=== PATIENT | male | born 1935 | race Caucasian/White ===

== ENCOUNTER 2017-05-31 08:02 | Inpatient (IN) | payer MEDICARE, OTHER ==
[~2017-05-31] VITALS: Ht 167.6 cm; Wt 113.9 kg
[2017-05-31] MEDS ORDERED: ACETAMINOPHEN 325 MG TAB PO STA (08:18)
[2017-05-31] MEDS ORDERED: ALBUTEROL 0.5% (NEB) 2.5 MG/0.5 ML AMP INH STA (08:18)
[2017-05-31] MEDS ORDERED: SODIUM CHLORIDE 0.9% 1L BAG IV* STA (08:18)
[2017-05-31] MEDS ORDERED: CEFEPIME 2GM/50 ML (PMX) 50 ML IVPB STA (08:18)
[2017-05-31] MEDS ORDERED: VANCOMYCIN 1 GM (PMX) 250 ML IVPB ONE (08:30)
[2017-05-31] MEDS ORDERED: METHYLPREDNISOLONE 125 MG INJ IV ONE (08:30)
[2017-05-31] MEDS ORDERED: ONDANSETRON 4 MG INJ IV STA (08:33)
--- NOTE | 2017-05-31 08:36 | ERA ---
ER Documentation Chief Complaint Date/Time DATE: 05/31/17 TIME: 08:34 Chief Complaint BIB PARAMEDICS FORM HOME - ALOC HPI This is 81-year-old male who woke this morning with fever and shortness of breath, diffuse abdominal pain and some altered mentation. He says he felt fine yesterday or today with a cough that was slightly productive sputum. Says she has had occasional dysuria in the past few days as well The states that he is been in good general health as of lately. She said yesterday he was fine as well as last night. The patient has had no cough but has had 2 episodes of nausea vomiting today is nonbilious and nonbloody. No diarrhea. He denies cough, dysuria hematuria or back pain. The patient himself is a very poor historian ROS All systems reviewed and are negative except as per history of present illness. Medications Home Meds Reported Medications Temazepam* (Temazepam*) 15 Mg Capsule, 15 MG PO HS MAY REPEAT X 1 Y for INSOMNIA , CAP 05/31/17 Ibuprofen* (Ibuprofen*) 200 Mg Capsule, 200 MG PO Q8 Y for PAIN, CAP 05/31/17 Acetaminophen* (Acetaminophen*) 500 MG Extra Strength Tablet, 2 MG PO Q6 Y for PAIN AND OR ELEVATED TEMP, TAB 05/31/17 Zolpidem Tartrate* (Ambien*) 10 Mg Tablet, 10 MG PO QHS Y for INSOMNIA, TAB 05/31/17 Allergies Allergies: Coded Allergies: No Known Allergy (Unverified , 05/31/17) PMhx/Soc History of Surgery: No Anesthesia Reaction: No Hx Neurological Disorder: No Hx Respiratory Disorders: No Hx Cardiac Disorders: Yes (HYPERTENSION, HYPERCHOLESTEROLEMIA) Hx Psychiatric Problems: No Hx Miscellaneous Medical Probl: Yes (ARTHRITIS) Hx Alcohol Use: No Hx Substance Use: No Smoking Status: Never smoker FmHx Family History: No coronary disease Physical Exam Vitals Vital Signs Date Time Temp Pulse Resp B/P Pulse Ox O2 Delivery O2 Flow Rate FiO2 05/31/17 10:11 100.5 05/31/17 09:26 101.6 116 23 147/86 100 Nasal Cannula 3.0 05/31/17 08:28 4.0 05/31/17 08:28 89 21 98 Nasal Cannula 4.0 05/31/17 08:15 Nasal Cannula 3 05/31/17 08:10 102.0 99 24 157/92 96 Physical Exam Const: Well-developed, well-nourished Head: Atraumatic, normocephalic Eyes: Normal Conjunctiva, PERRLA, EOMI, normal sclera, no nystagmus ENT: Normal External Ears, Nose and Mouth, moist mucus membranes. Neck: Full range of motion. No meningismus, no lymphadenopathy. Resp: Slight increased work of breathing, there is decreased breath sounds in both bases, no wheezing or rales Cardio: Regular rate and rhythm, no murmurs, S1 S2 present Abd: Soft, mild diffuse tenderness non distended. Normal bowel sounds, no guarding or rebound, no pulsitile abdominal masses or bruits Skin: No petechiae or rashes, no ecchymosis , no maculopapular rash Back: No midline or flank tenderness Ext: No cyanosis, or edema, FROM x 4, normal inspection, neurovascularly intact x 4 Neur: Awake and alert,, somewhat agitated STR 5/5 x 4, sensation intact x 4, no focal findings, cerebellum intact Psych: Normal Mood and Affect Result Diagram: 05/31/1781905/31/17 0820 Results 24 hrs Laboratory Tests Test 05/31/17 08:20 05/31/17 09:02 White Blood Count 13.010^3/ul Red Blood Count 4.9310^6/ul Hemoglobin 15.4g/dl Hematocrit 44.4% Mean Corpuscular Volume 90.1fl Mean Corpuscular Hemoglobin 31.2pg Mean Corpuscular Hemoglobin Concent 34.7g/dl Red Cell Distribution Width 12.2% Platelet Count 21019^3/UL Mean Platelet Volume 10.0fl Neutrophils % 78.9% Lymphocytes % 6.6% Monocytes % 13.0% Eosinophils % 0.5% Basophils % 0.4% Nucleated Red Blood Cells % 0.0/100WBC Neutrophils # (Manual) 10.210^3/ul Lymphocytes # 0.910^3/ul Monocytes # 1.710^3/ul Eosinophils # 0.110^3/ul Basophils # 0.110^3/ul Nucleated Red Blood Cells # 0.010^3/ul Prothrombin Time 13.6Sec Prothrombin Time Ratio 1.1 INR International Normalized Ratio 1.04 Activated Partial Thromboplast Time 23.1Sec Sodium Level 141mmol/L Potassium Level 4.1mmol/L Chloride Level 103mmol/L Carbon Dioxide Level 25mmol/L Anion Gap 17 Blood Urea Nitrogen 19mg/dl Creatinine 0.75mg/dl Glucose Level 112mg/dl Lactic Acid Level 3.4mmol/L Calcium Level 8.6mg/dl Total Bilirubin 0.6mg/dl Direct Bilirubin 0.00mg/dl Indirect Bilirubin 0.6mg/dl Aspartate Amino Transf (AST/SGOT) 24IU/L Alanine Aminotransferase (ALT/SGPT) 43IU/L Alkaline Phosphatase 54IU/L Troponin I < 0.012ng/ml Total Protein 6.3g/dl Albumin 3.7g/dl Globulin 2.60g/dl Albumin/Globulin Ratio 1.42 Urine Color YELLOW Urine Clarity CLEAR Urine pH 9.0 Urine Specific [place] 1.017 Urine Ketones NEGATIVEmg/dL Urine Nitrite NEGATIVEmg/dL Urine Bilirubin NEGATIVEmg/dL Urine Urobilinogen NEGATIVEmg/dL Urine Leukocyte Esterase NEGATIVELeu/ul Urine Microscopic RBC 1/HPF Urine Microscopic WBC 0/HPF Urine Hemoglobin NEGATIVEmg/dL Urine Glucose NEGATIVEmg/dL Urine Total Protein 1+mg/dl Current Medications Medications (Trade) Dose Ordered Sig/Kassandra Route PRN Reason Start Time Stop Time Status Last Admin Dose Admin Albuterol (Proventil 0.5% (Neb)) 10 mg ONCE STAT INH 05/31/17 08:18 05/31/17 08:21 DC 05/31/17 08:25 Sodium Chloride (NS) 2,950 ml BOLUS OVER 2 HOURS STAT IV* 05/31/17 08:18 05/31/17 08:21 DC 05/31/17 08:37 Acetaminophen 650 mg 650 mg ONCE STAT PO 05/31/17 08:18 05/31/17 08:22 DC 05/31/17 08:37 Cefepime HCl 50 ml @ 100 mls/hr ONCE STAT IVPB 05/31/17 08:18 05/31/17 08:47 DC 05/31/17 08:37 Vancomycin HCl (Vancocin) 250 ml @ 125 mls/hr ONCE ONCE IVPB 05/31/17 08:30 05/31/17 10:29 DC 05/31/17 09:36 Methylprednisolone Sodium Succinate (Solu-Medrol) 125 mg ONCE ONCE IV 05/31/17 08:30 05/31/17 08:31 DC 05/31/17 08:37 Ondansetron HCl (Zofran Inj) 4 mg ONCE STAT IV 05/31/17 08:33 05/31/17 08:34 DC 05/31/17 08:54 Procedures/MDM EKG: Rate/Rhythm: Normal Sinus Rhythm,NL intervals QRS, ST, QT: NORMAL ND, QRS, QT] Impression: NORMAL EKG PROCEDURE: CT Abdomen and Pelvis without intravenous contrast. CLINICAL INDICATION: Sepsis . TECHNIQUE: CT scan of the abdomen and pelvis without intravenous contrast was performed on a multi-slice CT scanner. Coronal and sagittal reformatted images were obtained from the axial source images. Images were reviewed on a high- resolution PACS workstation. Total DLP = 1589.7 mGy-cm. CTDIvol = 22.5 mGy. One or more of the following dose reduction techniques were used: Automated exposure control. Adjustment of the mA and/or kV according to patient size. Use of iterative reconstruction technique. COMPARISON: None. FINDINGS: CT abdomen and pelvis: The lung bases are clear. The heart size mildly enlarged. The liver is normal in size and and mildly fatty in density without focal mass or intrahepatic biliary dilatation. The spleen is normal in size and homogeneous in density. The pancreas as visualized is normal. The gallbladder shows no evidence of stones or distension . The adrenal glands are normal. The kidneys are symmetrically unremarkable. No urolithiasis, obstructive uropathy is seen. There is an exophytic slightly hyperdense 1 cm nodule at the upper pole of the left kidney probably a proteinaceous or hemorrhagic cyst. There is minimal bilateral perinephric stranding. Similar exophytic isodense 8 mm nodule seen at the upper pole of the right kidney. The stomach is partially collapsed, but is grossly unremarkable. The small bowels are unremarkable. The colon and rectum are normal. There is no evidence of appendicitis or diverticulitis. The pelvic organs are normal. The bladder is normal. There is no abdominal or pelvic adenopathy, free fluid, free air, mass or mesenteric inflammation. The aorta is normal in caliber with calcific atherosclerosis . The osseous structures showing degenerative enthesopathy of the spine. No osteolytic or osteoblastic lesions are identified. The soft tissues are within normal limits. Lack of IV and oral contrast limits sensitivity of exam. IMPRESSION: 1. Mild cardiomegaly. 2. Hepatic steatosis. 3. Exophytic hyper to isodense nodules at the upper poles of the bilateral kidneys probably a proteinaceous or hemorrhagic cysts. Ultrasound of the kidneys could be obtained to confirm. 4. Otherwise unremarkable noncontrast CT abdomen and pelvis without acute pathology identified. RPTAT: GG .Fortino Isbell MD, Date Time Electronically viewed and signed by .Fortino Isbell MD, on 05/31/2017 09:37 .L/ CC: YONATAN OWENS DO PROCEDURE: XR Chest. CLINICAL INDICATION: Possible Sepsis TECHNIQUE: Single frontal view of the chest was obtained. COMPARISON: None. FINDINGS: There is severe cardiomegaly and mild pulmonary vascular congestion. No focal infiltrates are identified. There is no significant pleural effusion or pneumothorax. IMPRESSION: Severe cardiomegaly and mild pulmonary vascular congestion. No definite focal infiltrates or effusions. RPTAT: EE Physician Lokesh Date Time Electronically viewed and signed by Physician Lokesh on 05/31/2017 09:09 RA/ CC: YONATAN OWENS DO Admit MDM: Patient's infectious symptoms have not stabilized and the patient is at risk of rapid decompensation. The patient will be admitted for careful hydration, antibiotic therapy, and infectious source control. Severe Sepsis criteria: Infectious source: GI End organ damage indicated by: Elevated lactate Lactate > 2.0 mmol/L Hypotension (SBP < 90 or >40 mmHG drop or MAP < 65) Acute Resp Failure (sat < 92% w/o oxygen) Employee Wellness/Fitness Coordinator > 2.0 INR > 1.5 Plt < 100 Bili > 2 Sepsis Management: Time of recognition of severe sepsis/septic shock: 1020 Within 3 hours of recognition: Blood cultures x 2 before broad-spectrum antibiotics: Yes 30 ml/kg NS bolus completed Initial lactate 3.4 Repeat lactate pending Current data and ongoing care discussed. Time: Admitting Physician: Business Writer(s): Outstanding Data: None Critical Care Time: 35 minutes Treatments/Evaluations: Close monitoring and treatment of unstable vital signs, cardiorespiratory, and neurologic status, while maintaining tight balance of fluid, respiratory, and cardiac interventions. This includes the administration of emergency fluid management while maintaining close respiratory support as well as the provision of immediate and broad-spectrum antibiotic therapy, while performing a simultaneous assessment for possible sources in order to direct targeted therapy. This time includes discussing the case with the patient and the patient's family. This time also includes the consideration for invasive and chemical support to prevent cardiopulmonary collapse. This time does not include all procedures stated elsewhere in this record. This time also includes reviewing old records, labs and radiological studies. This time includes examining and re-examining the patient. Additionally, this time also includes arranging care with admitting and consulting physicians. Departure Diagnosis: Primary Impression: Sepsis Qualified Code: A41.9 - Sepsis, due to unspecified organism Condition: Stable YONATAN OWENS DO May 31, 2017 08:36
[2017-05-31 08:55] LABS: ABNORMAL IP MESSAGE 1; BASOPHIL # 0.1 10^3/ul (0.0-0.1); BASOPHILS % 0.4 % (0.0-2.0); EOSINOPHILS # 0.1 10^3/ul (0.0-0.5); EOSINOPHILS % 0.5 % (0.0-7.0); HEMATOCRIT 44.4 % (42.0-52.0); HEMOGLOBIN 15.4 g/dl (14.0-18.0); LYMPHOCYTES # 0.9 10^3/ul (0.8-2.9); LYMPHOCYTES % 6.6 % (15.0-51.0); MEAN CORPUSCULAR HEMOGLOBIN 31.2 pg (29.0-33.0); MEAN CORPUSCULAR HGB CONC 34.7 g/dl (32.0-37.0); MEAN CORPUSCULAR VOLUME 90.1 fl (82.0-101.0); MONOCYTE # 1.7 10^3/ul (0.3-0.9); NEUTROPHILS % 78.9 % (39.0-77.0); PLATELET COUNT 193 10^3/UL (140-415); POSITIVE DIFF @See below; RED BLOOD COUNT 4.93 10^6/ul (4.70-6.10); RED CELL DISTRIBUTION WIDTH 12.2 % (11.5-14.5)
[2017-05-31 09:10] LABS: INR 1.04; PARTIAL THROMBOPLASTIN TIME 23.1 Sec (25.0-35.0); PROTIME 13.6 Sec (12.2-14.2); PT RATIO 1.1
--- NOTE | 2017-05-31 09:10 | RADRPT ---
PROCEDURE: XR Chest. CLINICAL INDICATION: Possible Sepsis TECHNIQUE: Single frontal view of the chest was obtained. COMPARISON: None. FINDINGS: There is severe cardiomegaly and mild pulmonary vascular congestion. No focal infiltrates are identified. There is no significant pleural effusion or pneumothorax. IMPRESSION: Severe cardiomegaly and mild pulmonary vascular congestion. No definite focal infiltrates or effusions. RPTAT: EE Colton Titus Physician Date Time Electronically viewed and signed by Colton Titus Physician on 05/31/2017 09:09 /
[2017-05-31 09:11] LABS: ALANINE AMINOTRANSFERASE 43 IU/L (13-69); ALBUMIN 3.7 g/dl (3.3-4.9); ALBUMIN/GLOBULIN RATIO 1.42; ALKALINE PHOSPHATASE 54 IU/L (42-121); ANION GAP 17 (8-16); ASPARTATE AMINO TRANSFERASE 24 IU/L (15-46); BILIRUBIN,INDIRECT 0.6 mg/dl (0-1.1); BILIRUBIN,TOTAL 0.6 mg/dl (0.2-1.3); BLOOD UREA NITROGEN 19 mg/dl (7-20); CALCIUM 8.6 mg/dl (8.4-10.2); CARBON DIOXIDE 25 mmol/L (21-31); CHLORIDE 103 mmol/L (97-110); CREATININE 0.75 mg/dl (0.61-1.24); GLUCOSE 112 mg/dl (70-220); POTASSIUM 4.1 mmol/L (3.5-5.1); SODIUM 141 mmol/L (135-144); TOTAL PROTEIN 6.3 g/dl (6.1-8.1)
[2017-05-31 09:18] LABS: ADD UMIC YES; UR ASCORBIC ACID NEGATIVE (NEGATIVE); UR BILIRUBIN (Dip) NEGATIVE (NEGATIVE); UR BLOOD (Dip) NEGATIVE (NEGATIVE); UR CLARITY CLEAR (CLEAR); UR COLOR YELLOW (YELLOW); UR GLUCOSE (Dip) NEGATIVE (NEGATIVE); UR KETONES (Dip) NEGATIVE (NEGATIVE); UR LEUKOCYTE ESTERASE (Dip) NEGATIVE Leu/ul (NEGATIVE); UR NITRITE (Dip) NEGATIVE (NEGATIVE); UR RBC 1 /HPF (0-5); UR SPECIFIC GRAVITY (Dip) 1.017 (1.003-1.030); UR TOTAL PROTEIN (Dip) 1+ mg/dl (NEGATIVE); UR UROBILINOGEN (Dip) NEGATIVE (NEGATIVE)
[2017-05-31 09:25] LABS: TROPONIN-I < 0.012 ng/ml (0.00-0.12)
--- NOTE | 2017-05-31 09:37 | RADRPT ---
PROCEDURE: CT Abdomen and Pelvis without intravenous contrast. CLINICAL INDICATION: Sepsis . TECHNIQUE: CT scan of the abdomen and pelvis without intravenous contrast was performed on a multi -slice CT scanner. Coronal and sagittal reformatted images were obtained from the axial source image s. Images were reviewed on a high-resolution PACS workstation. Total DLP = 1589.7 mGy-cm. CTDIvol = 22.5 mGy. One or more of the following dose reduction techniques were used: Automated exposure control. Adjustment of the mA and/or kV according to patient size. Use of iterative reconstruction technique. COMPARISON: None. FINDINGS: CT abdomen and pelvis: The lung bases are clear. The heart size mildly enlarged. The liver is normal in size and and mild ly fatty in density without focal mass or intrahepatic biliary dilatation. The spleen is normal in size and homogeneous in density. The pancreas as visualized is normal. The gallbladder shows no evidence of stones or distension . The adrenal glands are normal. The kidneys are symmetrically un remarkable. No urolithiasis, obstructive uropathy is seen. There is an exophytic slightly hyperdens e 1 cm nodule at the upper pole of the left kidney probably a proteinaceous or hemorrhagic cyst. Th ere is minimal bilateral perinephric stranding. Similar exophytic isodense 8 mm nodule seen at the u pper pole of the right kidney. The stomach is partially collapsed, but is grossly unremarkable. The small bowels are unremarkable. The colon and rectum are normal. There is no evidence of appendicitis or diverticulitis. The pelvi c organs are normal. The bladder is normal. There is no abdominal or pelvic adenopathy, free fluid, free air, mass or mesenteric inflammation. The aorta is normal in caliber with calcific atherosclerosis . The osseous structures showing degen erative enthesopathy of the spine. No osteolytic or osteoblastic lesions are identified. The soft t issues are within normal limits. Lack of IV and oral contrast limits sensitivity of exam. IMPRESSION: 1. Mild cardiomegaly. 2. Hepatic steatosis. 3. Exophytic hyper to isodense nodules at the upper poles of the bilateral kidneys probably a prote inaceous or hemorrhagic cysts. Ultrasound of the kidneys could be obtained to confirm. 4. Otherwise unremarkable noncontrast CT abdomen and pelvis without acute pathology identified. RPTAT: GG .Fortino Isbell MD, MD Date Time Electronically viewed and signed by .Fortino Isbell MD, on 05/31/2017 09:37 .L/
[2017-05-31] MEDS ORDERED: ZOLP10TA PO (09:44)
[2017-05-31] MEDS ORDERED: IBUP200C PO (09:45)
[2017-05-31] MEDS ORDERED: ACET-141 PO (09:45)
[2017-05-31] MEDS ORDERED: TEMA15CA PO (09:46)
[2017-05-31 11:19] VITALS: TEMP 99.1
[2017-05-31] MEDS ORDERED: SOD CHLORIDE 0.9% 1,000 ML IV SCH ×2 (11:44→12:06)
[2017-05-31] MEDS ORDERED: ONDANSETRON 4 MG INJ IV PRN ×2 (12:00→12:30)
[2017-05-31] MEDS ORDERED: ACETAMINOPHEN 325 MG TAB PO PRN (12:00)
[2017-05-31] MEDS ORDERED: ACETAMINOPHEN 650 MG SUPP PR PRN (12:30)
[2017-05-31] MEDS ORDERED: VANCOMYCIN IV PER PHARMACY XX SCH (12:30)
[2017-05-31] MEDS ORDERED: NACL 0.9% 3 ML SYG IV SCH (12:30)
[2017-05-31] MEDS ORDERED: NON-FORMULARY/PATIENT OWN MED (Temazepam* 15 MG) PO PRN (12:30)
[2017-05-31 13:00] VITALS: Ht 167.6 cm; Wt 113.9 kg
[2017-05-31 13:52] VITALS: BP 114/50; PULSE 75; RESP 17
[2017-05-31 14:04] VITALS: PULSE 93
--- NOTE | 2017-05-31 14:23 | HP ---
Date/Time of Note Date/Time of Note DATE: 05/31/17 TIME: 13:55 Assessment/Plan VTE Prophylaxis VTE Prophylaxis Intervention: LMWH Lines/Catheters IV [facility]ter [facility]from [facility] Saline Lock Assessment/Plan Assessment/Plan This is a 81-year-old male who was brought to the emergency room with fever, chills, vomiting, malaise and abdominal pain. 1. Sepsis with lactic acidosis,unknown etiology.CT with possible renal cyst. -Obtain pancultures. Patient will be treated with IV fluids, and broad- spectrum IV antibiotics. 2. Chronic lower extremity edema. Rule out congestive heart failure versus lymphedema. -Obtain 2D echocardiogram. Will also give a dose of Lasix as he is fluid overloaded in my exam. -We will also obtain BNP. 3. Exophytic hyper to isodense nodules at the upper poles of the bilateral kidneys probably a proteinaceous or hemorrhagic cysts on CT abdomen. -We will obtain renal ultrasound and will treat accordingly. 4. Hepatic steatosis. LFTs normal. -Patient was advised on weight reduction. 5. Hypertension. Stable. -Hydralazine PRN for SBP greater than 160 6. Arthritis. -Pain medications PRN 7. Insomnia -Resume home medication 8. Nonbilious, nonbloody emesis, likely secondary to underlying sepsis versus gastroenteritis. CT negative for any acute intra-abdominal pathologies. Resolved. -Advance diet as tolerated. DVT prophylaxis: Lovenox PUD prophylaxis: Pepcid Plan: Patient will be admitted to telemetry. Patient does not have any further nausea or vomiting. We will start patient on a diet and advance as tolerated. Follow-up with cultures, echocardiogram and renal ultrasound. We will also obtain fasting lipid panel, A1c and TSH level. The rest of the management depend on clinical course, further studies and input from underwriting consultant. Approximately 60 minutes was spent on this history and physical. Case discussed with . HPI/ROS Admit Date/Time Admit Date/Time May 31, 2017 at 11:45 Hx of Present Illness This is a 81-year-old morbidly obese male with a past medical history of hypertension, arthritis, appendectomy, insomnia, and chronic lower extremity swelling who was brought to the emergency room with fever, chills, malaise, body aches, nausea, 2 times nonbilious, nonbloody vomiting, and abdominal pain which started early this morning. Patient also had slightly productive cough started yesterday. He also had mild shortness of breath. Patient denied any chest pain, palpitation, loss of consciousness, dizziness, upper or lower GI bleed episodes, dysuria or hematuria. Patient had elevated WBC 13,000 with a lactic acid 3.4 on arrival. He also had a fever of 102 with blood pressure 157/92 and heart rate 99. Urine analysis was negative. Initial chest x-ray with severe cardiomegaly and mild pulmonary vascular congestion. There was no infiltrates or effusion. A CT abdomen and pelvis without any acute intra-abdominal pathologies.However, there was hepatic steatosis with questionable proteinaceous or hemorrhagic cyst on upper poles of bilateral kidneys and an ultrasound was recommended. Patient was given cefepime, vancomycin and a total of 2.9 later fluid bolus in the emergency room and was admitted for further evaluation. ROS A 12 point review of system was assessed and is negative other than what is mentioned in HPI. PMH/Family/Social Past Medical History See HPI Past Surgical History See HPI Social History Denied history of alcohol, smoking or illicit drug use. Smoking Status: Never smoker Exam/Review of Systems Vital Signs Vitals Vital Signs Date Time Temp Pulse Resp B/P Pulse Ox O2 Delivery O2 Flow Rate FiO2 05/31/17 11:19 99.1 97 24 126/74 98 Nasal Cannula 3.0 Exam Exam General: Morbidly obese male, in mild respiratory distress.. HEENT: Normocephalic, Atraumatic, No laceration or hematoma; Eyes: PEERL, Conjunctiva clear, Anicteric sclera Neck: Supple without any lymphadenopathy, nontender, no JVD, no carotid bruits, trachea midline, no thyromegaly Cardiac: S1, S2 auscultated, regular rhythm and rate, no mumurs or gallop Pulmonary: Diminished breath sound bibasilar. Normal respiratory effort. No wheezing. GI: Abdomen obese and distended l to inspection. Non tender, non- distended, no masses, no rebound tenderness or guarding. Bowel sounds active on all four quadrants Genitourinary: Deferred Extremities: Bilateral lower extremity 2+ pitting edema. No cyanosis, clubbing , or edema. Pulses [2+] bilaterally. Full ROM on all four extremities. No focal weakness appreciated. Neurologic: Alert to person, place, time, and situation. Affect appropriate, intact sensation. Skin: Clean,dry, and intact. No ecchymosis, no rashes, or lesions Labs Result Diagram: 05/31/17 0820 05/31/17 0820 Medications Medications Current Medications Sodium Chloride 1,000 ml @ 80 mls/hr [id number] IV ; Start 05/31/17 at 11:44; Stop 06/01/17 at 00:13 Sodium Chloride (NS) 1,000 ml @ 75 mls/hr [id number] IV Last administered on 05/31t 13:26; Admin Dose 75 MLS/HR; Start 05/31/17 at 12:06 Ondansetron HCl (Zofran Inj) 4 mg Q6H PRN IV NAUSEA AND/OR VOMITING; Start at 12:30 Acetaminophen (Tylenol Tab) 650 mg Q6H PRN PO PAIN LEVEL 1-3 OR FEVER; Start at 12:30 Acetaminophen (Tylenol Supp) 650 mg Q6H PRN WI PAIN LEVEL 1-3 OR FEVER; Start 05/31/17 at 12:30 Morphine Sulfate (morphine) 2 mg Q4H PRN IV SEVERE PAIN LEVEL 7-10; Start 05/31 at 12:30 Docusate Sodium (Colace) 100 mg Q12H PRN PO CONSTIPATION; Start 05/31/17 at 12: 30 Famotidine 20 mg 20 mg Q12 IV ; Start 05/31/17 at 21:00 Piperacillin Sod/ Tazobactam Sod (Zosyn 3.375gm/ 100 ml (Pmx)) 100 ml @ 200 mls /hr Q6 IVPB ; Start 05/31/17 at 18:00 Zolpidem Tartrate 10 mg 10 mg QHS PRN PO INSOMNIA; Start 05/31/17 at 12:30 Vancomycin HCl (Vancocin) 250 ml @ 125 mls/hr Q12H IVPB ; Start 05/31/17 at 14: 00 DELMI GOODMAN NP May 31, 2017 14:05 DELMI GOODMAN NP May 31, 2017 14:05
[2017-05-31] MEDS ORDERED: FUROSEMIDE 20 MG INJ IV ONE (14:30)
[2017-05-31] MEDS: VANCOMYCIN 1 GM in NS 250 ML IVPB SCH (15:12)
--- NOTE | 2017-05-31 16:01 | RADRPT ---
PROCEDURE: Ultrasound of the bilateral lower extremity venous system. CLINICAL INDICATION: Bilateral leg pain and swelling, deep venous thrombosis TECHNIQUE: Cadena scale with and without compression, color doppler, spectral doppler of the venous system of the bilateral lower extremities was performed. Venous augmentation maneuvers were utilized . COMPARISON: No prior studies are available for comparison. FINDINGS: RIGHT: Common femoral vein: Patent. Femoral vein: Patent. Popliteal vein: Patent. Calf veins: Patent. No soft tissue abnormalities are identified. LEFT: Common femoral vein: Patent. Femoral vein: Patent. Popliteal vein: Patent. Calf veins: Patent. No soft tissue abnormalities are identified. IMPRESSION: No evidence of a deep vein thrombosis within the bilateral lower extremities. RPTAT: AADD .Frank Wahl MD, MD Date Time Electronically viewed and signed by .Frank Wahl MD, on 05/31/2017 16:01 .B/
[2017-05-31] MEDS: ACETAMINOPHEN 325 MG TAB PO PRN (16:03)
--- NOTE | 2017-05-31 16:06 | RADRPT ---
PROCEDURE: Retroperitoneal ultrasound. CLINICAL INDICATION: Hemorrhagic cysts versus mass of both kidneys TECHNIQUE: Cadena scale and color doppler ultrasound images of the retroperitoneum, kidneys, urinary bladder COMPARISON: CT abdomen pelvis 05/31/2017 FINDINGS: Kidneys: Right length (cm) : 10.9 Left length (cm) : 12.4 Right cortical thickness: Normal. Left cortical thickness: Borderline cortical thinning. Echogenicity: Normal bilaterally. Hydronephrosis: None. Renal calculi: None. Focal lesions: 1.1 cm cortical exophytic cyst of the superior pole right kidney appears concordant. The lesion arising from the upper pole of the left kidney on the prior CT scan is not identified. Free fluid/ascites: None. Abdominal aorta: Not visualized by the electroslag welding machine operator. Bladder: No focal lesions. Other findings: None. IMPRESSION: 1.1 cm cyst arising from the upper pole of the right kidney appears concordant with the prior CT sca n. 1.0 cm lesion identified arising medially from the superior pole of the left kidney on the prior CT scan is not visualized. A small renal mass is not excluded. Recommend MRI of the abdomen with jayla l mass protocol for further evaluation. RPTAT: AADD .Frank Wahl MD, Date Time Electronically viewed and signed by .Frank Wahl MD, on 05/31/2017 16:06 .B/
[2017-05-31 16:19] VITALS: BP 124/55; PULSE 78; RESP 19
[2017-05-31] MEDS ORDERED: LORAZEPAM 2 MG INJ IV PRN (16:30)
--- NOTE | 2017-05-31 16:45 | RADRPT ---
Echocardiogram Report Patient Name: KORY DONOVAN Gender: Male Date: 1935 Study Date: 31-May-2017 [employer] Grader: Margret Villarreal [facility] Location: 5567 Ref. Physician: DELMI GOODMAN Quality: Adequate Procedures: Transthoracic echocardiogram with complete 2D, M-Mode, and doppler examination. Indications: possible Congestive Heart Failure. 2D/M Mode Doppler Measurement Value Normal Ranges Measurement Value Normal Ranges LVIDd 2D 4.6 3.5 - 5.6 cm AV Peak Chris 2.4 m/sec LVIDs 2D 3.0 2.1 - 4.1 cm AV Peak PG 24.0 mmHg FS 2D 34.8 % LVOT Peak Chris 1.7 m/sec LVPWd 2D 1.3 0.6 - 1.1 cm LVOT Peak PG 12.0 mmHg IVSd 2D 1.3 0.6 - 1.1 cm MV E Peak Chris 0.9 m/sec IVS/LVPW 2D 1.0 MV A Peak Chris 1.3 m/sec AoR Diam 2D 3.2 2.0 - 3.7 cm MV E/A 0.7 LA/Ao 2D 1 0 - 1 MV Decel Time 239 msec EDV 2D 95.4 cm3 MV E/A 0.7 ESV 2D 26.5 cm3 TR Peak Chris 2.8 m/sec LA Dimen 2D 4.6 2.3 - 4.0 cm TR Peak PG 32.0 mmHg RVSP 35.0 mmHg Findings Left Ventricle: Normal left ventricular systolic function. Normal left ventricular cavity size. Mild concentric left ventricular hypertrophy. Ejection fraction is visually estimated at 65 %. Tissue Doppler/Mitral Doppler indices are consistent with impaired relaxation (Stage I diastolic dysfunction). Right Ventricle: Normal right ventricular size. Normal right ventricular systolic function. Left Atrium: There is mild enlargement of left atrium. Right Atrium: The right atrium is normal in size. Mitral Valve: Normal appearance and function of the mitral valve with trace physiologic regurgitation. Aortic Valve: No significant aortic stenosis or insufficiency. Aortic cusps appear mildly calcified. Tricuspid Valve: Normal appearance and function of the tricuspid valve with trace physiologic regurgitation. Estimated peak PA systolic pressure 35 mmHg. Pulmonic Valve: Normal pulmonic valve appearance. Pericardium: Normal pericardium with no significant pericardial effusion. Aorta: Normal aortic root. IVC: Normal size and normal respiratory collapse consistent with normal right atrial pressure. Conclusions 1.Normal left ventricular systolic function. Normal left ventricular cavity size. Mild concentric left ventricular hypertrophy. Ejection fraction is visually estimated at 65 %. Tissue Doppler/Mitral Doppler indices are consistent with impaired relaxation (Stage I diastolic dysfunction). 2.Normal right ventricular size. Normal right ventricular systolic function. 3.There is mild enlargement of left atrium. 4.The right atrium is normal in size. 5.No significant valvular stenosis or regurgitation seen. 6.Normal pericardium with no significant pericardial effusion. Electronically Signed By: Rey Baig 31-May-2017 16:44:39 -0700 Patient Name: KORY DONOVAN Study Date: 31-May-[id number]
[2017-05-31] MEDS: ALBUTEROL/IPRATROPIUM (NEB) 3 ML AMP HHN SCH ×3 (16:59→20:51)
[2017-05-31 17:27] LABS: ADD UMIC NO; UR ASCORBIC ACID NEGATIVE (NEGATIVE); UR BILIRUBIN (Dip) NEGATIVE (NEGATIVE); UR BLOOD (Dip) NEGATIVE (NEGATIVE); UR CLARITY CLEAR (CLEAR); UR COLOR YELLOW (YELLOW); UR GLUCOSE (Dip) NEGATIVE (NEGATIVE); UR KETONES (Dip) NEGATIVE (NEGATIVE); UR LEUKOCYTE ESTERASE (Dip) NEGATIVE Leu/ul (NEGATIVE); UR NITRITE (Dip) NEGATIVE (NEGATIVE); UR SPECIFIC GRAVITY (Dip) 1.011 (1.003-1.030); UR TOTAL PROTEIN (Dip) NEGATIVE (NEGATIVE); UR UROBILINOGEN (Dip) NEGATIVE (NEGATIVE)
[2017-05-31] MEDS: PIPER-TAZO 3.375 GM IV (PMX) 100 ML IVPB SCH (17:38)
[2017-05-31] MEDS: morphine 2 MG INJ IV PRN (17:38)
[2017-05-31 20:00] VITALS: BP 107/54; RESP 18
[2017-05-31 20:15] VITALS: PULSE 72
[2017-05-31] MEDS: ZOLPIDEM 5 MG TAB PO PRN (21:14)
[2017-05-31] MEDS: FAMOTIDINE 20 MG INJ IV SCH (21:15)
[2017-06-01] VITALS (12 sets, daily range): BP systolic 114–170; BP diastolic 56–75; PULSE 16–77; RESP 14–19
[2017-06-01] MEDS: PIPER-TAZO 3.375 GM IV (PMX) 100 ML IVPB SCH ×3 (00:15→11:50)
[2017-06-01] MEDS: ALBUTEROL/IPRATROPIUM (NEB) 3 ML AMP HHN SCH ×6 (00:44→20:51)
[2017-06-01] MEDS: VANCOMYCIN 1 GM in NS 250 ML IVPB SCH ×2 (02:20→13:57)
[2017-06-01 07:43] LABS: BASOPHILS % 0.4 % (0.0-2.0); EOSINOPHILS % 0.1 % (0.0-7.0); HEMATOCRIT 39.5 % (42.0-52.0); HEMOGLOBIN 13.1 g/dl (14.0-18.0); LYMPHOCYTES % 9.9 % (15.0-51.0); MEAN CORPUSCULAR HEMOGLOBIN 30.5 pg (29.0-33.0); MEAN CORPUSCULAR HGB CONC 33.2 g/dl (32.0-37.0); MEAN CORPUSCULAR VOLUME 92.1 fl (82.0-101.0); MEAN PLATELET VOLUME 9.6 fl (7.4-10.4); MONOCYTE # 1.3 10^3/ul (0.3-0.9); MONOCYTES % 13.8 % (0.0-11.0); NEUTROPHILS % 75.5 % (39.0-77.0); PLATELET COUNT 149 10^3/UL (140-415); RED BLOOD COUNT 4.29 10^6/ul (4.70-6.10); RED CELL DISTRIBUTION WIDTH 12.7 % (11.5-14.5); WHITE BLOOD COUNT 9.7 10^3/ul (4.8-10.8)
[2017-06-01 08:00] LABS: ALBUMIN 3.4 g/dl (3.3-4.9); ALBUMIN/GLOBULIN RATIO 1.21; BILIRUBIN,INDIRECT 0.4 mg/dl (0-1.1); BILIRUBIN,TOTAL 0.4 mg/dl (0.2-1.3); CALCIUM 8.1 mg/dl (8.4-10.2); CREATININE 0.88 mg/dl (0.61-1.24); MAGNESIUM 1.6 mg/dl (1.7-2.5); PHOSPHORUS 2.9 mg/dl (2.5-4.9); POTASSIUM 3.6 mmol/L (3.5-5.1); TOTAL PROTEIN 6.2 g/dl (6.1-8.1)
--- NOTE | 2017-06-01 08:25 | RADRPT ---
PROCEDURE: CT Abdomen and Pelvis without contrast. CLINICAL INDICATION: Abdominal pain with vomiting. TECHNIQUE: CT scan of the abdomen and pelvis without contrast was performed on a multidetector hig h-resolution CT scanner. The patient was scanned without intravenous contrast. Coronal and sagittal reformatted images were obtained from the axial source images. Images were reviewed on a high-resol doggyloot PACS workstation. The total exam CTDI equals 23.2 mGy and the total exam DLP equals 1429.4 mGy -cm. One or more of the following dose reduction techniques were used: Automated exposure control. Adjustment of the mA and/or kV according to patient size. Use of iterative reconstruction technique. COMPARISON: CT abdomen and pelvis 05/31/2017 and renal ultrasound 05/31/2017. FINDINGS: CT abdomen: The lung bases are remarkable for bibasilar atelectasis. The heart size is mildly enlarged without pericardial thickening or effusion. There is hepatomegaly with fatty infiltration. The spleen is normal in size and homogeneous in densi ty. The stomach is partially collapsed, but is grossly unremarkable. The pancreas as visualized is normal. The gallbladder is unremarkable. There is no evidence for biliary dilatation. The adrenal glands are symmetric and normal. The kidneys are symmetrically unremarkable as well. There is no urolithiasis. There is no hydronephrosis. There is approximately 1.2 cm exophytic hyperdense struc ture in the upper pole left kidney. There is a sub centimeter isodense structure in the upper pole right kidney. There is nonspecific bilateral perinephric fatty stranding. The aorta is of normal caliber. Aortic vascular calcifications are present. There is no retroperit carney lymphadenopathy. The rere hepatis region is clear. The bowel and mesentery, as visualized, are equally unremarkable. There is a small hiatal hernia. CT pelvis: The small bowel loops situated within the pelvis are unremarkable. The pelvic organs are normal. T he pelvic sidewalls and inguinal regions are clear. The sigmoid colon and rectum are unremarkable. No mass, lymphadenopathy, or free fluid is seen. No acute inflammation is seen. The surrounding o sseous structures are remarkable for degenerative spondylosis of the spine. No osteolytic or osteob lastic lesion is detected. IMPRESSION: 1. No mass, lymphadenopathy, or focal acute inflammatory process is identified. 2. Small hiatal hernia. 3. Approximately 1.2 cm exophytic hyperdense structure in the upper pole left kidney likely represe nting a proteinaceous or hemorrhagic cyst. 4. A sub centimeter cortical cyst in the upper pole right kidney. 5. Hepatomegaly with fatty infiltration. 6. Scattered aortoiliac atherosclerosis. 7. Cardiomegaly. RPTAT: AAEE .Guido Larose MD, MD Date Time Electronically viewed and signed by .Guido Larose MD, on 06/01/2017 08:24 .O/
[2017-06-01 08:29] LABS: THYROID STIMULATING HORMONE 0.339 MIU/L (0.465-4.680)
[2017-06-01] MEDS: FAMOTIDINE 20 MG INJ IV SCH (08:32)
[2017-06-01] MEDS: ENOXAPARIN 40 MG/0.4 ML SYG SC SCH (08:33)
[2017-06-01] MEDS ORDERED: DEXTROSE 50% 50 ML SYRINGE IV PRN ×2 (09:00)
[2017-06-01] MEDS ORDERED: GLUCOSE GEL 15 GRAM TUBE PO PRN ×2 (09:00)
[2017-06-01] MEDS ORDERED: GLUCOSE GEL 15 GRAM TUBE BUCCAL PRN (09:00)
[2017-06-01] MEDS ORDERED: GLUCAGON 1 MG INJ IM PRN (09:00)
[2017-06-01] MEDS: INSULIN ASPART [NOVOLOG] 3 ML PEN SC SCH ×3 (11:54→21:00)
[2017-06-01] MEDS: ACETAMINOPHEN 325 MG TAB PO PRN (11:56)
--- NOTE | 2017-06-01 12:03 | PN ---
Date/Time of Note Date/Time of Note DATE: 06/01/17 TIME: 12:03 Assessment/Plan VTE Prophylaxis VTE Prophylaxis Intervention: LMWH Lines/Catheters IV [facility] Saline Lock Assessment/Plan Chief Complaint/Hosp Course 1. Sepsis with GBS bacteremia and lactic acidosis,unknown etiology- Possibly 2/ 2 infected renal cyst. CAP also is differential. -Continue IV broad-spectrum antibiotics. -Follow-up ID recommendation 2. Chronic bilateral lower extremities lymphedema. Will monitor. 3. Probable renal cyst versus mass per CT and ultrasound finding. -Obtain renal protocol MRI and will treat accordingly. 4. Hepatic steatosis. LFTs normal. -Patient was advised on weight reduction. 5. Hypertension. -Obtain home medications and resume accordingly. 6. Arthritis. -Pain medications PRN 7. Insomnia -Continue home medication DVT prophylaxis: Lovenox PUD prophylaxis: Pepcid Plan: Continue current antibiotics. Follow-up with ID recommendations. Follow- up with MRI findings and follow-up with ID recommendation. Case discussed with . Problems: Subjective 24 Hr Interval Summary Free Text/Dictation Patient with no further fevers. Feeling overall improvement in symptoms. No further breathing difficulties. Has been ambulating without any difficulties. On 2 L oxygen. Exam/Review of Systems Vital Signs Vitals Vital Signs Date Time Temp Pulse Resp B/P Pulse Ox O2 Delivery O2 Flow Rate FiO2 06/01/17 09:24 4.0 06/01/17 09:24 70 20 97 Nasal Cannula 06/01/17 07:53 97.9 114/56 Intake and Output 05/31/17 05/31/17 06/01/17 15:00 23:00 07:00 Intake Total 470 ml 360 ml Output Total 550 ml 400 ml Balance -80 ml -40 ml Exam General: Morbidly obese male, in mild respiratory distress.. HEENT: Normocephalic, Atraumatic, No laceration or hematoma; Eyes: PEERL, Conjunctiva clear, Anicteric sclera Neck: Supple without any lymphadenopathy, nontender, no JVD, no carotid bruits, trachea midline, no thyromegaly Cardiac: S1, S2 auscultated, regular rhythm and rate, no mumurs or gallop Pulmonary: Diminished breath sound bibasilar. Normal respiratory effort. No wheezing. GI: Abdomen obese and distended l to inspection. Non tender, non- distended, no masses, no rebound tenderness or guarding. Bowel sounds active on all four quadrants Genitourinary: Deferred Extremities: Bilateral lower extremity 2+ pitting edema. No cyanosis, clubbing , or edema. Pulses [2+] bilaterally. Full ROM on all four extremities. No focal weakness appreciated. Neurologic: Alert to person, place, time, and situation. Affect appropriate, intact sensation. Skin: Clean,dry, and intact. No ecchymosis, no rashes, or lesions Results Result Diagram: 06/01/17 0713 06/01/17 0713 Results 24 hrs Laboratory Tests Test 05/31/17 12:30 05/31/17 14:15 06/01/17 07:13 06/01/17 09:35 Lactic Acid Level 2.6 *H 1.6 B-Type Natriuretic Peptide 138 Urine Color YELLOW Urine Clarity CLEAR Urine pH 6.0 Urine Specific [place] 1.011 Urine Ketones NEGATIVE Urine Nitrite NEGATIVE Urine Bilirubin NEGATIVE Urine Urobilinogen NEGATIVE Urine Leukocyte Esterase NEGATIVE Urine Hemoglobin NEGATIVE Urine Glucose NEGATIVE Urine Total Protein NEGATIVE White Blood Count 9.7 # Red Blood Count 4.29 L Hemoglobin 13.1 L Hematocrit 39.5 L Mean Corpuscular Volume 92.1 Mean Corpuscular Hemoglobin 30.5 Mean Corpuscular Hemoglobin Concent 33.2 Red Cell Distribution Width 12.7 Platelet Count 149 # Mean Platelet Volume 9.6 Neutrophils % 75.5 Lymphocytes % 9.9 L Monocytes % 13.8 H Eosinophils % 0.1 Basophils % 0.4 Nucleated Red Blood Cells % 0.0 Neutrophils # (Manual) 7.3 Lymphocytes # 1.0 Monocytes # 1.3 H Eosinophils # 0.0 Basophils # 0.0 Nucleated Red Blood Cells # 0.0 Sodium Level 138 Potassium Level 3.6 Chloride Level 99 Carbon Dioxide Level 26 Anion Gap 17 H Blood Urea Nitrogen 19 Creatinine 0.88 Glucose Level 135 Hemoglobin A1c 6.3 H Calcium Level 8.1 L Phosphorus Level 2.9 Magnesium Level 1.6 L Total Bilirubin 0.4 Direct Bilirubin 0.00 Indirect Bilirubin 0.4 Aspartate Amino Transf (AST/SGOT) 27 Alanine Aminotransferase (ALT/SGPT) 44 Alkaline Phosphatase 42 Total Protein 6.2 Albumin 3.4 Globulin 2.80 Albumin/Globulin Ratio 1.21 Triglycerides Level 135 Cholesterol Level 168 LDL Cholesterol, Calculated 100 HDL Cholesterol 41 Cholesterol/HDL Ratio 4.0 Thyroid Stimulating Hormone (TSH) 0.339 L Test 06/01/17 11:53 Bedside Glucose 127 Medications Medications Current Medications Ondansetron HCl (Zofran Inj) 4 mg Q6H PRN IV NAUSEA AND/OR VOMITING; Start at 12:30 Acetaminophen (Tylenol Tab) 650 mg Q6H PRN PO PAIN LEVEL 1-3 OR FEVER Last administered on 06/01/17 11:56; Admin Dose 650 MG; Start 05/31/17 at 12:30 Acetaminophen (Tylenol Supp) 650 mg Q6H PRN [place] PAIN LEVEL 1-3 OR FEVER; Start 05/31/17 at 12:30 Morphine Sulfate (morphine) 2 mg Q4H PRN IV SEVERE PAIN LEVEL 7-10 Last administered on 05/31/17 17:38; Admin Dose 2 MG; Start 05/31/17 at 12:30 Docusate Sodium (Colace) 100 mg Q12H PRN PO CONSTIPATION; Start 05/31/17 at 12: 30 Famotidine 20 mg 20 mg Q12 IV Last administered on 06/01/17 08:32; Admin Dose 20 MG; Start 05/31/17 at 21:00 Piperacillin Sod/ Tazobactam Sod (Zosyn 3.375gm/ 100 ml (Pmx)) 100 ml @ 200 mls /hr Q6 IVPB Last administered on 06/01/17 11:50; Admin Dose 200 MLS/HR; Start 05/31/17 at 18:00 Zolpidem Tartrate 10 mg 10 mg QHS PRN PO INSOMNIA Last administered on 21:14; Admin Dose 10 MG; Start 05/31/17 at 12:30 Vancomycin HCl (Vancocin) 250 ml @ 125 mls/hr Q12H IVPB Last administered on 02:20; Admin Dose 125 MLS/HR; Start 05/31/17 at 14:00 Enoxaparin Sodium (Lovenox) 40 mg DAILY SC Last administered on 06/01/17 08:33 ; Admin Dose 40 MG; Start 06/01/17 at 09:00 Lorazepam (Ativan) 0.5 mg Q6H PRN IV anxiety; Start 05/31/17 at 16:30 Diagnostic Test (Pha) (Accu-Chek) 1 ea 02 XX ; Start 06/02/17 at 02:00 Miscellaneous Information 1 ea NOTE XX ; Start 06/01/17 at 09:00 Glucose (Glutose) 15 gm Q15M PRN PO DECREASED GLUCOSE; Start 06/01/17 at 09:00 Glucose (Glutose) 22.5 gm Q15M PRN PO DECREASED GLUCOSE; Start 06/01/17 at 09: 00 Dextrose (D50w Syringe) 25 ml Q15M PRN IV DECREASED GLUCOSE; Start 06/01/17 at 09:00 Dextrose (D50w Syringe) 50 ml Q15M PRN IV DECREASED GLUCOSE; Start 06/01/17 at 09:00 Glucagon (Glucagen) 1 mg Q15M PRN IM DECREASED GLUCOSE; Start 06/01/17 at 09:00 Glucose (Glutose) 15 gm Q15M PRN BUCCAL DECREASED GLUCOSE; Start 06/01/17 at 09 :00 Miscellaneous Information (*Rx Drug Level Order Reminder*) VANCO TROUGH @ 0, 100 ON... ONCE ONCE XX ; Start 06/02/17 at 01:00; Stop 06/02/17 at 01:01 DELMI GOODMAN NP Jun 01, 2017 12:03 DELMI GOODMAN NP Jun 01, 2017 12:03
[2017-06-01] MEDS ORDERED: MAGNESIUM SULFATE 1 GM/D5W 100 ML IVPB ONE (14:00)
[2017-06-01] MEDS: morphine 2 MG INJ IV PRN (16:18)
[2017-06-01] MEDS: CEFTRIAXONE 1 GM/50 ML (PMX) 50 ML IVPB SCH (17:43)
[2017-06-01] MEDS: FAMOTIDINE 20 MG TAB PO SCH (21:11)
[2017-06-02] VITALS (14 sets, daily range): BP systolic 138–176; BP diastolic 62–80; PULSE 62–100; RESP 17–20
[2017-06-02] MEDS: DOCUSATE SODIUM 100 MG CAP PO PRN ×2 (00:14→13:17)
[2017-06-02] MEDS: ALBUTEROL/IPRATROPIUM (NEB) 3 ML AMP HHN SCH ×6 (00:37→20:10)
[2017-06-02] MEDS ORDERED: ACCU-CHEK XX SCH (02:00)
[2017-06-02] MEDS: ACCU-CHEK XX SCH (02:00)
[2017-06-02] MEDS: ACETAMINOPHEN 325 MG TAB PO PRN ×3 (04:28→20:55)
[2017-06-02 06:59] LABS: BASOPHILS % 0.5 % (0.0-2.0); EOSINOPHILS # 0.1 10^3/ul (0.0-0.5); EOSINOPHILS % 0.7 % (0.0-7.0); HEMATOCRIT 38.5 % (42.0-52.0); LYMPHOCYTES # 1.2 10^3/ul (0.8-2.9); LYMPHOCYTES % 14.1 % (15.0-51.0); MEAN CORPUSCULAR HGB CONC 33.8 g/dl (32.0-37.0); MEAN CORPUSCULAR VOLUME 91.9 fl (82.0-101.0); MEAN PLATELET VOLUME 9.8 fl (7.4-10.4); MONOCYTE # 1.3 10^3/ul (0.3-0.9); MONOCYTES % 15.7 % (0.0-11.0); NEUTROPHILS % 68.6 % (39.0-77.0); PLATELET COUNT 159 10^3/UL (140-415); RED BLOOD COUNT 4.19 10^6/ul (4.70-6.10); RED CELL DISTRIBUTION WIDTH 12.6 % (11.5-14.5); WHITE BLOOD COUNT 8.4 10^3/ul (4.8-10.8)
[2017-06-02 07:27] LABS: CALCIUM 8.7 mg/dl (8.4-10.2); CREATININE 0.77 mg/dl (0.61-1.24); POTASSIUM 4.2 mmol/L (3.5-5.1)
[2017-06-02 07:37] LABS: FREE T3 2.87 pg/ml (2.77-5.27)
[2017-06-02] MEDS: INSULIN ASPART [NOVOLOG] 3 ML PEN SC SCH ×4 (07:38→20:59)
[2017-06-02 07:51] LABS: TRIIODOTHYRONINE 0.73 ng/ml (0.97-1.69)
[2017-06-02] MEDS: ENOXAPARIN 40 MG/0.4 ML SYG SC SCH (08:42)
[2017-06-02] MEDS: FAMOTIDINE 20 MG TAB PO SCH ×2 (08:43→20:55)
--- NOTE | 2017-06-02 09:43 | PN ---
Date/Time of Note Date/Time of Note DATE: 06/02/17 TIME: 09:42 Assessment/Plan VTE Prophylaxis VTE Prophylaxis Intervention: LMWH Lines/Catheters [facility] (from [facility] Saline Lock Urinary Cath still in place: No Assessment/Plan Chief Complaint/Hosp Course 1. Sepsis with GBS bacteremia and lactic acidosis,unknown etiology- Possible infected renal cyst vs possible community acquired pneumonia -Continue IV broad-spectrum antibiotics. -Follow-up ID recommendation 2. Chronic bilateral lower extremities lymphedema . Will monitor. Negative US. 3. Possible hemorrhagic/proteinaceous Renal cyst. -Nephrology consult and if indicated, will obtain urology eval. Patient with normal renal fxn and asymptomatic. -Continue with IV abx (patient has sepsis and suspect cyst as a possible source of infection) 4. Hepatic steatosis. LFTs normal. -Patient was advised on weight reduction. 5. Hypertension. -Continue home meds 6. Arthritis. -Pain medications PRN 7. Insomnia -Continue home medication 8. Hyperthyroidism. Patient is asymptomatic. -Recommend repeat labs in 2 weeks as outpatient after discharge and treat accordingly. DVT prophylaxis: Lovenox PUD prophylaxis: Pepcid Plan: Continue current antibiotics. Follow-up with ID recommendations. Follow- up with nephrology recs on renal protocol MRI findings. Case discussed with . Problems: Subjective 24 Hr Interval Summary Free Text/Dictation Patient with mild difficulty breathing and nonproductive cough. No fever or chills. Exam/Review of Systems Vital Signs Vitals Vital Signs Date Time Temp Pulse Resp B/P Pulse Ox O2 Delivery O2 Flow Rate FiO2 06/02/17 09:22 80 20 97 Nasal Cannula 3.0 06/02/17 07:21 98.1 161/67 Intake and Output 06/01/17 06/01/17 06/02/17 15:00 23:00 07:00 Intake Total 1000 ml 700 ml Output Total 800 ml 950 ml Balance 200 ml -250 ml Exam General: Morbidly obese male, in mild respiratory distress.. HEENT: Normocephalic, Atraumatic, No laceration or hematoma; Eyes: PEERL, Conjunctiva clear, Anicteric sclera Neck: Supple without any lymphadenopathy, nontender, no JVD, no carotid bruits, trachea midline, no thyromegaly Cardiac: S1, S2 auscultated, regular rhythm and rate, no mumurs or gallop Pulmonary: Diminished breath sound bibasilar. Normal respiratory effort. No wheezing. GI: Abdomen obese and distended l to inspection. Non tender, non- distended, no masses, no rebound tenderness or guarding. Bowel sounds active on all four quadrants Genitourinary: Deferred Extremities: Bilateral lower extremity 2+ pitting edema. No cyanosis, clubbing , or edema. Pulses [2+] bilaterally. Full ROM on all four extremities. No focal weakness appreciated. Neurologic: Alert to person, place, time, and situation. Affect appropriate, intact sensation. Skin: Clean,dry, and intact. No ecchymosis, no rashes, or lesions Results Result Diagram: 06/02/1762706/02/17627 Results 24 hrs Laboratory Tests Test 06/01/17 11:53 06/01/17 17:14 06/01/17 21:16 06/02/17 06:28 Bedside Glucose 127 136 114 White Blood Count 8.4 Red Blood Count 4.19 L Hemoglobin 13.0 L Hematocrit 38.5 L Mean Corpuscular Volume 91.9 Mean Corpuscular Hemoglobin 31.0 Mean Corpuscular Hemoglobin Concent 33.8 Red Cell Distribution Width 12.6 Platelet Count 159 Mean Platelet Volume 9.8 Neutrophils % 68.6 Lymphocytes % 14.1 L Monocytes % 15.7 H Eosinophils % 0.7 Basophils % 0.5 Nucleated Red Blood Cells % 0.0 Neutrophils # (Manual) 5.8 Lymphocytes # 1.2 Monocytes # 1.3 H Eosinophils # 0.1 Basophils # 0.0 Nucleated Red Blood Cells # 0.0 Sodium Level 142 Potassium Level 4.2 Chloride Level 100 Carbon Dioxide Level 31 Anion Gap 15 Blood Urea Nitrogen 15 Creatinine 0.77 Glucose Level 139 Calcium Level 8.7 Magnesium Level 2.0 Free Thyroxine 0.76 L Free Triiodothyronine (T3) pg/mL 2.87 Total Triiodothyronine 0.73 L Test 06/02/17 07:23 Bedside Glucose 136 Medications Medications Current Medications Ondansetron HCl (Zofran Inj) 4 mg Q6H PRN IV NAUSEA AND/OR VOMITING; Start at 12:30 Acetaminophen (Tylenol Tab) 650 mg Q6H PRN PO PAIN LEVEL 1-3 OR FEVER Last administered on 06/02/17t 04:28; Admin Dose 650 MG; Start 05/31/17 at 12:30 Acetaminophen (Tylenol Supp) 650 mg Q6H PRN [place] PAIN LEVEL 1-3 OR FEVER; Start 05/31/17 at 12:30 Morphine Sulfate (morphine) 2 mg Q4H PRN IV SEVERE PAIN LEVEL 7-10 Last administered on 06/01/17 16:18; Admin Dose 2 MG; Start 05/31/17 at 12:30 Docusate Sodium (Colace) 100 mg Q12H PRN PO CONSTIPATION Last administered on 00:14; Admin Dose 100 MG; Start 05/31/17 at 12:30 Zolpidem Tartrate (Ambien) 10 mg QHS PRN PO INSOMNIA Last administered on 21:14; Admin Dose 10 MG; Start 05/31/17 at 12:30 Enoxaparin Sodium (Lovenox) 40 mg DAILY SC Last administered on 06/02/17 08:42 ; Admin Dose 40 MG; Start 06/01/17 at 09:00 Lorazepam (Ativan) 0.5 mg Q6H PRN IV anxiety; Start 05/31/17 at 16:30 Diagnostic Test (Pha) (Accu-Chek) 1 ea 02 XX ; Start 06/02/17 at 02:00 Miscellaneous Information 1 ea NOTE XX ; Start 06/01/17 at 09:00 Glucose (Glutose) 15 gm Q15M PRN PO DECREASED GLUCOSE; Start 06/01/17 at 09:00 Glucose (Glutose) 22.5 gm Q15M PRN PO DECREASED GLUCOSE; Start 06/01/17 at 09: 00 Dextrose (D50w Syringe) 25 ml Q15M PRN IV DECREASED GLUCOSE; Start 06/01/17 at 09:00 Dextrose (D50w Syringe) 50 ml Q15M PRN IV DECREASED GLUCOSE; Start 06/01/17 at 09:00 Glucagon (Glucagen) 1 mg Q15M PRN IM DECREASED GLUCOSE; Start 06/01/17 at 09:00 Glucose 15 gm 15 gm Q15M PRN BUCCAL DECREASED GLUCOSE; Start 06/01/17 at 09:00 Ceftriaxone Sodium (Rocephin) 50 ml @ 100 mls/hr Q24H IVPB Last administered on 06/01/17 17:43; Admin Dose 100 MLS/HR; Start 06/01/17 at 18:00 Famotidine (Pepcid) 20 mg Q12 PO Last administered on 06/02/17t 08:43; Admin Dose 20 MG; Start 06/01/17 at 21:00 DELMI GOODMAN NP Jun 02, 2017 09:42
--- NOTE | 2017-06-02 09:58 | CONS ---
DATE OF ADMISSION: 05/31/2017 DATE OF CONSULTATION: 06/01/2017 REASON FOR CONSULTATION: Antibiotic management. Beverly Emerson is a 81-year-old male who comes in with fever, chills, nausea, vomiting, and abdominal pain. His past problems include: 1. Morbid obesity. 2. Hypertension. 3. Status post appendectomy. 4. Arthritis. 5. Insomnia. Patient was brought in with fever and chills as well as malaise, body aches and abdominal pain. He had a productive cough which started yesterday as well with mild shortness of breath. Denies any chest pain, upper or lower GI bleeding, dysuria and hematuria. On admission, his white count 13,000, H and H 15.4 and 44.4, platelet count 193,000. BUN/creatinine 19/0.75, random glucose of 112. Patient had a lactic acid of 3.4 on arrival and a temperature of 102 degrees. Urinalysis was negative. Chest x- ray showed severe cardiomegaly, mild pulmonary vascular congestion without infiltrate or effusion. A CT scan of the abdomen and pelvis did not show any acute intra-abdominal pathology. There was hepatic steatosis with questionable proteinaceous or hemorrhagic cysts on the upper poles of the bilateral kidneys, and an ultrasound is recommended. Patient was given vancomycin and cefepime and 2.9 L of fluid in the emergency room. HOSPITAL COURSE: Patient had blood cultures positive for group B streptococci in 2 out of 2 bottles. Urine cultures are negative. The source of this is unclear. An echocardiogram was done by Dr. Baig. Normal left ventricular systolic function. Normal right ventricular size. Fairly unremarkable with ejection fraction of 65 percent. Patient was started on vancomycin and Zosyn. PAST MEDICAL HISTORY: Operations as outlined. FAMILY HISTORY: Noncontributory. SOCIAL HISTORY: Does not smoke, drink, or abuse drugs. ALLERGIES: NONE TO PENICILLIN, SULFA, OR FOODS. MEDICATION: Per chart. REVIEW OF SYSTEMS: As per HPI. PHYSICAL EXAMINATION: GENERAL: Patient is a morbidly obese male who is awake, responsive, in no acute distress. He has some mild respiratory distress. VITAL SIGNS: Currently T-max of 99.1. Currently, he is afebrile. SKIN: Without generalized rash. HEENT: Within normal limits. NECK: Supple. Lymph nodes not palpable. CHEST: Decreased breath sounds at the bases. HEART: Without murmur or gallop. ABDOMEN: Soft, nontender, without organosplenomegaly or masses. EXTREMITIES: A 2 plus pitting edema, bilateral lower extremities. RECTAL/GENITAL: Deferred. NEUROLOGICAL: No focal neurological abnormalities. IMPRESSION AND PLAN: The patient has group B streptococci, Streptococcus agalactiae in his blood, the etiology of which is unclear. Cultures are pending. He has a number of cultures. He has blood cultures, respiratory culture, urine culture, but there is no question that this is not a contaminant. I will dictate my findings. We may want to do a MAIK on him if we do not find a source. We may do an indium-labeled white cell study. I will dictate my findings to the hospitalist and Dr. Baig. Dictated By: Chandan Desai MD JD/lata/pascale /Document#: [id number]
--- NOTE | 2017-06-02 10:59 | RADRPT ---
PROCEDURE: MRI of the abdomen with without contrast CLINICAL INDICATION: Indeterminate renal cysts on prior imaging. TECHNIQUE: An MRI of the abdomen was performed on a GE 1.5 Paige scanner utilizing the following s equences: Axial T2-weighted with and without fat saturation, coronal single shot FSE T2-weighted, a xial T1-weighted FSPGR and out of phase, and postcontrast axial and coronal T1-weighted with multi p hase imaging on the axial postcontrast study. 20 cc of Magnevist were given intravenously without c omplication. COMPARISON: CT abdomen and pelvis 05/31/2017. FINDINGS: There is hepatomegaly. There is signal drop out on the [id number] images in keeping with fatty in filtration of the liver. No liver mass lesion or intrahepatic biliary dilatation is seen. The splee n is normal in size and homogeneous in signal intensity. The stomach is partially collapsed but frida ssly unremarkable. The pancreas, as visualized, is equally unremarkable. No pancreatic lesion is s een. The adrenal glands are symmetrically normal. The aorta is of normal caliber. There is approxi mately 1.3 cm exophytic round structure in the upper pole left kidney which demonstrates hypointense signal on T2-weighted images and hyperintense signal on T1-weighted images with no contrast enhance ment on postcontrast images in keeping with a hemorrhagic/proteinaceous cyst. There is approximatel y 1 cm cyst which demonstrate similar imaging features in the upper pole right kidney. There is cindy roximately 0.8 cm simple cyst in the lower pole left kidney. There is no concerning renal mass. There is no hydronephrosis. There is no retroperitoneal lymphadenopathy. The bowel and mesentery, a s visualized, are all unremarkable. IMPRESSION: 1. No renal mass. 2. Approximately 1.2 cm exophytic cyst in the upper pole left kidney and 1 cm cyst in the upper parth e right kidney with imaging features consistent with hemorrhagic/proteinaceous cyst. 3. Hepatomegaly with fatty infiltration. RPTAT: AAEE .Guido Larose MD, Date Time Electronically viewed and signed by .Guido Larose MD, on 06/02/2017 09:07 .O/
[2017-06-02] MEDS ORDERED: ASPI-664 PO (11:35)
[2017-06-02] MEDS ORDERED: MAGN400C PO (11:35)
[2017-06-02] MEDS ORDERED: TIOT18CA INHALATION (11:35)
[2017-06-02] MEDS ORDERED: EZET10TA3 PO (11:35)
[2017-06-02] MEDS ORDERED: GABA300S PO (11:35)
[2017-06-02] MEDS ORDERED: ROSU5TAB8 PO (11:35)
[2017-06-02] MEDS ORDERED: FLUT16SP17 NASAL (11:35)
[2017-06-02] MEDS ORDERED: DUTA0.5C PO (11:35)
[2017-06-02] MEDS ORDERED: LIPA1CAP45 PO (11:35)
[2017-06-02] MEDS ORDERED: RIVA1PAT3 TD (11:35)
[2017-06-02] MEDS ORDERED: DOCU100T PO (11:35)
[2017-06-02] MEDS ORDERED: ICOS1CAP PO (11:35)
[2017-06-02] MEDS ORDERED: AMLO2.5T78 PO (11:35)
[2017-06-02] MEDS ORDERED: MEMA28CA PO (11:35)
[2017-06-02] MEDS ORDERED: CALC-516 PO (11:35)
[2017-06-02] MEDS ORDERED: AMLODIPINE 2.5 MG TAB PO SCH (12:30)
[2017-06-02] MEDS: GABAPENTIN 300 MG CAP PO SCH ×2 (13:12→20:55)
[2017-06-02] MEDS: CEFTRIAXONE 1 GM/50 ML (PMX) 50 ML IVPB SCH (17:24)
--- NOTE | 2017-06-02 17:40 | CONS ---
Date/Time of Note Date/Time of Note DATE: 06/02/17 TIME: 17:30 Assessment/Plan Assessment/Plan Additional Assessment/Plan 1. Bilateral kidney mass vs cyst- MRI abdomen + pelvis showed 1.2 cm exophytic cyst in the upper pole left kidney and 1 cm cyst in the upper pole right kidney with imaging features consistent with hemorrhagic/proteinaceous cyst. - pt has normal renal function, no proteinuria, no hematuria 2. sepsis with GBS bacteremia, unclear etiology at this time 3. Hypertension 4. Fatty liver 5. Bilateral LE chronic lymphedema Plan : MRI abdomen + pelvis showed 1.2 cm exophytic cyst in the upper pole left kidney and 1 cm cyst in the upper pole right kidney with imaging features consistent with hemorrhagic/proteinaceous cyst. - pt has normal renal function, no proteinuria, no hematuria- his infectioon source would be infected cysts. Cysts are not ruptured so no evidence of hematuria. Need IV abx for sepsis, Flouroquinolones would be better choice for infected cyst if pt continue to have recurrent bacteremia and if rising BUN/Cr then consider Urology consult continue Other abx as suggeseted by ID Monitor Electroltyes and replace as needed Renally dose all abx will need follow up Imaging( CT vs MRI ) fo tollow up on size of cyst. Thanks for consultation,we will conitinue to follow up on patient. Consultation Date/Type/Reason Admit Date/Time May 31, 2017 at 11:45 Date of Consultation: Jun 02, 2017 Type of Consultation: NEPHROLOGY Reason for Consultation hemorrhagic/proteinaceous kidney cyst. Referring Provider: CARMEN TOLEDO Hx of Present Illness 81-year-old morbidly obese male with a past medical history of hypertension, arthritis, appendectomy, insomnia, and chronic lower extremity swelling who was brought to the emergency room with fever, chills, malaise, body aches, nausea, 2 times nonbilious, nonbloody vomiting, and abdominal pain which started early this morning. Patient also had slightly productive cough started yesterday. He also had mild shortness of breath. Patient denied any chest pain, palpitation, loss of consciousness, dizziness, upper or lower GI bleed episodes , dysuria or hematuria. Patient had elevated WBC 13,000 with a lactic acid 3.4 on arrival. He also had a fever of 102 with blood pressure 157/92 and heart rate 99. Urine analysis was negative. Initial chest x-ray with severe cardiomegaly and mild pulmonary vascular congestion. There was no infiltrates or effusion. A CT abdomen and pelvis without any acute intra-abdominal pathologies. There was hepatic steatosis with questionable proteinaceous or hemorrhagic cyst on upper poles of bilateral kidneys and an ultrasound was recommended. Patient was given cefepime , vancomycin and a total of 2.9 later fluid bolus in the emergency room and was admitted for further evaluation. pt had Sepsis with GBS bacteremia and lactic acidosis,unknown etiology- Possible community acquired pneumonia- on IV abx, ID consulted, On MRI abdmen with pelvis with contrast - he is noted to have Approximately 1.2 cm exophytic cyst in the upper pole left kidney and 1 cm cyst in the upper pole right kidney with imaging features consistent with hemorrhagic/proteinaceous cyst- renal has been consulted for it Past Medical History Medical History: hypertension, other (arthritis ) Past Surgical History Past Surgical Hx: appendectomy Family History Significant Family History: no pertinent family hx Social History Alcohol Use: none Smoking Status: Never smoker Drug Use: none Exam/Review of Systems Vital Signs Vitals Vital Signs Date Time Temp Pulse Resp B/P Pulse Ox O2 Delivery O2 Flow Rate FiO2 06/02/17 17:28 100 06/02/17 16:43 20 98 Nasal Cannula 3.0 06/02/17 15:24 97.7 144/66 Intake and Output 06/01/17 06/01/17 06/02/17 15:00 23:00 07:00 Intake Total 1500 ml 700 ml Output Total 800 ml 950 ml Balance 700 ml -250 ml Exam Constitutional: alert Psych: no complaints Head: normocephalic Eyes: nl conjunctiva ENMT: nl external ears & nose Neck: supple Respiratory: clear to auscultation Cardiovascular: nl pulses, regular rate and rhythm Gastrointestinal: non-tender, soft Musculoskeletal: muscle weakness, nl extremities to inspection, other (back tenderness ) Neurological: [employer] II-XII intact, nl mental status, nl speech, nl strength Results Result Diagram: 06/02/1762706/02/17627 Results 24 hrs Laboratory Tests Test 06/01/17 21:16 06/02/17 06:28 06/02/17 07:23 06/02/17 11:51 Bedside Glucose 114 136 100 White Blood Count 8.4 Red Blood Count 4.19 L Hemoglobin 13.0 L Hematocrit 38.5 L Mean Corpuscular Volume 91.9 Mean Corpuscular Hemoglobin 31.0 Mean Corpuscular Hemoglobin Concent 33.8 Red Cell Distribution Width 12.6 Platelet Count 159 Mean Platelet Volume 9.8 Neutrophils % 68.6 Lymphocytes % 14.1 L Monocytes % 15.7 H Eosinophils % 0.7 Basophils % 0.5 Nucleated Red Blood Cells % 0.0 Neutrophils # (Manual) 5.8 Lymphocytes # 1.2 Monocytes # 1.3 H Eosinophils # 0.1 Basophils # 0.0 Nucleated Red Blood Cells # 0.0 Sodium Level 142 Potassium Level 4.2 Chloride Level 100 Carbon Dioxide Level 31 Anion Gap 15 Blood Urea Nitrogen 15 Creatinine 0.77 Glucose Level 139 Calcium Level 8.7 Magnesium Level 2.0 Free Thyroxine 0.76 L Free Triiodothyronine (T3) pg/mL 2.87 Total Triiodothyronine 0.73 L Medications Medications Current Medications Ondansetron HCl (Zofran Inj) 4 mg Q6H PRN IV NAUSEA AND/OR VOMITING; Start at 12:30 Acetaminophen (Tylenol Tab) 650 mg Q6H PRN PO PAIN LEVEL 1-3 OR FEVER Last administered on 06/02/17 11:52; Admin Dose 650 MG; Start 05/31/17 at 12:30 Acetaminophen (Tylenol Supp) 650 mg Q6H PRN [place] PAIN LEVEL 1-3 OR FEVER; Start 05/31/17 at 12:30 Morphine Sulfate (morphine) 2 mg Q4H PRN IV SEVERE PAIN LEVEL 7-10 Last administered on 06/01/17 16:18; Admin Dose 2 MG; Start 05/31/17 at 12:30 Docusate Sodium (Colace) 100 mg Q12H PRN PO CONSTIPATION Last administered on 13:17; Admin Dose 100 MG; Start 05/31/17 at 12:30 Zolpidem Tartrate (Ambien) 10 mg QHS PRN PO INSOMNIA Last administered on 21:14; Admin Dose 10 MG; Start 05/31/17 at 12:30 Enoxaparin Sodium (Lovenox) 40 mg DAILY SC Last administered on 06/02/17 08:42 ; Admin Dose 40 MG; Start 06/01/17 at 09:00 Lorazepam (Ativan) 0.5 mg Q6H PRN IV anxiety; Start 05/31/17 at 16:30 Diagnostic Test (Pha) (Accu-Chek) 1 ea 02 XX ; Start 06/02/17 at 02:00 Miscellaneous Information 1 ea NOTE XX ; Start 06/01/17 at 09:00 Glucose (Glutose) 15 gm Q15M PRN PO DECREASED GLUCOSE; Start 06/01/17 at 09:00 Glucose (Glutose) 22.5 gm Q15M PRN PO DECREASED GLUCOSE; Start 06/01/17 at 09: 00 Dextrose (D50w Syringe) 25 ml Q15M PRN IV DECREASED GLUCOSE; Start 06/01/17 at 09:00 Dextrose (D50w Syringe) 50 ml Q15M PRN IV DECREASED GLUCOSE; Start 06/01/17 at 09:00 Glucagon (Glucagen) 1 mg Q15M PRN IM DECREASED GLUCOSE; Start 06/01/17 at 09:00 Glucose 15 gm 15 gm Q15M PRN BUCCAL DECREASED GLUCOSE; Start 06/01/17 at 09:00 Ceftriaxone Sodium (Rocephin) 50 ml @ 100 mls/hr Q24H IVPB Last administered on 06/01/17 17:43; Admin Dose 100 MLS/HR; Start 06/01/17 at 18:00 Famotidine (Pepcid) 20 mg Q12 PO Last administered on 06/02/17t 08:43; Admin Dose 20 MG; Start 06/01/17 at 21:00 Aspirin (Halfprin) 81 mg DAILY PO ; Start 06/03/17 at 09:00 Docusate Sodium (Colace) 100 mg DAILY PO ; Start 06/03/17 at 09:00 Dutasteride (Avodart) 0.5 mg DAILY PO ; Start 06/03/17 at 09:00 EZETIMIBE (Zetia) 10 mg DAILY PO ; Start 06/03/17 at 09:00 Tiotropium [place] (Spiriva) 1 inh DAILY INH ; Start 06/03/17 at 09:00 Calcium/Vitamin D (Oyster Shell/ Vit-D (500/200)) 1 tab DAILY PO ; Start at 09:00 Magnesium Oxide (Mag-Ox 400) 400 mg BID PO ; Start 06/02/17 at 21:00 Memantine (Namenda) 10 mg BID PO ; Start 06/02/17 at 21:00 Gabapentin (Neurontin) 300 mg TID PO Last administered on 06/02/17t 13:12; Admin Dose 300 MG; Start 06/02/17 at 13:00 Atorvastatin Calcium (Lipitor) 10 mg HS PO ; Start 06/02/17 at 21:00 Amlodipine Besylate (Norvasc) 5 mg DAILY PO ; Start 06/02/17 at 12:30 JAIMIE QUINTERO MD Jun 02, 2017 17:40
[2017-06-02] MEDS: ATORVASTATIN 10 MG TAB PO SCH (20:55)
[2017-06-02] MEDS: MEMANTINE 10 MG TAB PO SCH (20:55)
[2017-06-02] MEDS: MAGNESIUM OXIDE 400 MG TAB PO SCH (20:55)
[2017-06-03] VITALS (13 sets, daily range): BP systolic 138–161; BP diastolic 62–81; PULSE 65–84; RESP 16–20
[2017-06-03] MEDS: ALBUTEROL/IPRATROPIUM (NEB) 3 ML AMP HHN SCH ×6 (00:51→20:48)
[2017-06-03] MEDS: ACCU-CHEK XX SCH ×2 (02:00→22:14)
[2017-06-03 07:26] LABS: BASOPHIL # 0.1 10^3/ul (0.0-0.1); BASOPHILS % 0.8 % (0.0-2.0); EOSINOPHILS # 0.1 10^3/ul (0.0-0.5); EOSINOPHILS % 1.7 % (0.0-7.0); HEMATOCRIT 40.8 % (42.0-52.0); HEMOGLOBIN 13.6 g/dl (14.0-18.0); LYMPHOCYTES # 1.1 10^3/ul (0.8-2.9); LYMPHOCYTES % 16.3 % (15.0-51.0); MEAN CORPUSCULAR HEMOGLOBIN 30.2 pg (29.0-33.0); MEAN CORPUSCULAR HGB CONC 33.3 g/dl (32.0-37.0); MEAN CORPUSCULAR VOLUME 90.7 fl (82.0-101.0); MEAN PLATELET VOLUME 10.4 fl (7.4-10.4); MONOCYTES % 15.7 % (0.0-11.0); NEUTROPHILS % 64.9 % (39.0-77.0); PLATELET COUNT 174 10^3/UL (140-415); RED CELL DISTRIBUTION WIDTH 12.9 % (11.5-14.5); WHITE BLOOD COUNT 6.5 10^3/ul (4.8-10.8)
[2017-06-03] MEDS: INSULIN ASPART [NOVOLOG] 3 ML PEN SC SCH ×4 (07:43→22:14)
[2017-06-03 07:53] LABS: CREATININE 0.73 mg/dl (0.61-1.24); MAGNESIUM 2.1 mg/dl (1.7-2.5)
--- NOTE | 2017-06-03 08:14 | PN ---
DATE: 06/02/2017 SUBJECTIVE DATA: No acute events overnight. The patient is alert, lying comfortably in bed. Complaining of headache, no fevers. OBJECTIVE DATA: VITAL SIGNS: Temperature 98.2, pulse 70, respirations 20, blood pressure 166/77, and saturation 95 on 3 L nasal cannula. LABORATORY STUDIES: WBC 8.4, H and H 13 and 38.5, platelets 159, no shift, no bands. BUN 15 and creatinine 0.77. MICROBIOLOGY: Blood culture growing strep agalactiae group B. CT of the abdomen and pelvis on admission revealed no mass, lymphadenopathy or focal acute inflammatory process, small hiatal hernia, hepatomegaly, cardiomegaly approximately 1.2 cm exophytic hyperdense structure in the upper pole left kidney. MRI of the abdomen revealed no renal mass, approximately 1.2 cm exophytic cyst in the upper pole left kidney and 1 cm cyst in the upper pole right kidney with imaging features consistent with hemorrhagic/proteinaceous cyst, hepatomegaly. Chest x-ray revealed no definite focal infiltrates or effusions. Severe cardiomegaly and mild pulmonary vascular congestion. Extremity venous study was essentially negative for DVT. ANTIMICROBIAL: The patient is on Rocephin. PHYSICAL EXAMINATION: GENERAL: This is a morbidly obese, well developed, elderly man who is awake, in no distress. HEENT: Head atraumatic, normocephalic. Sclerae anicteric. Buccal mucosa pink. NECK: Obese. CHEST: Symmetrical. Breath sounds with expiratory wheezes and prolonged expiratory phase. HEART: S1, S2. ABDOMEN: Obese, soft, bowel sounds present. EXTREMITIES: With bilateral lower extremity edema. Right lower extremity brownish discoloration below the knee. ASSESSMENT: 1. Streptococcal bacteremia, etiology unclear. Rule out pulmonary source, rule out endocarditis. 2. Morbid obesity. 3. Pulmonary vascular congestion with cardiomegaly. 4. Hypertension. PLAN: The patient is hemodynamically stable, on appropriate antimicrobials. 2D echo revealed no vegetations, ejection fraction of 65 percent. We will continue him on current regimen. Await for repeat blood cultures. We will try to obtain sputum culture. Dictated By: Fox Lopez NP /lata/maciel /Document#: [id number]
[2017-06-03] MEDS: DOCUSATE SODIUM 100 MG CAP PO SCH (08:32)
[2017-06-03] MEDS: GABAPENTIN 300 MG CAP PO SCH ×3 (08:32→22:14)
[2017-06-03] MEDS: MAGNESIUM OXIDE 400 MG TAB PO SCH ×2 (08:32→22:13)
[2017-06-03] MEDS: ENOXAPARIN 40 MG/0.4 ML SYG SC SCH (08:32)
[2017-06-03] MEDS: MEMANTINE 10 MG TAB PO SCH ×2 (08:32→22:13)
[2017-06-03] MEDS: ASPIRIN (EC) 81 MG TAB PO SCH (08:32)
[2017-06-03] MEDS: DUTASTERIDE 0.5 MG CAP PO SCH (08:32)
[2017-06-03] MEDS: CALCIUM/VITAMIN D (500/200) TAB PO SCH (08:32)
[2017-06-03] MEDS: AMLODIPINE 5 MG TAB PO SCH (08:33)
[2017-06-03] MEDS: TIOTROPIUM 18 MCG CAPSULE INHA DEV INH SCH (08:33)
[2017-06-03] MEDS: FAMOTIDINE 20 MG TAB PO SCH ×2 (08:33→22:13)
[2017-06-03] MEDS: EZETIMIBE 10 MG TAB PO SCH (08:33)
--- NOTE | 2017-06-03 10:39 | PN ---
Date/Time of Note Date/Time of Note DATE: 06/03/17 TIME: 10:38 Assessment/Plan VTE Prophylaxis VTE Prophylaxis Intervention: LMWH Lines/Catheters IV C[facility] Type [facility] Urinary Cath still in place: No Assessment/Plan Chief Complaint/Hosp Course 1. Resolving sepsis with GBS bacteremia and lactic acidosis,unknown etiology- Possible infected renal cyst vs possible community acquired pneumonia -Continue IV broad-spectrum antibiotics. -Follow-up ID recommendation 2. Chronic bilateral lower extremities lymphedema . Negative for DVT -Maurice wrap and elevation of affected extremities. 3. Bilateral hemorrhagic/proteinaceous Renal cyst. -Nephrology eval appreciated and recommended follow-up renal protocol MRI in 1 year -Continue with IV abx (patient has sepsis and suspect cyst as a possible source of infection) 4. Hepatic steatosis. LFTs normal. -Patient was advised on weight reduction. 5. Hypertension. -Continue home meds 6. Arthritis. -Pain medications PRN 7. Insomnia -Continue home medication 8. Hyperthyroidism. Patient is asymptomatic. -Recommend repeat labs in 2 weeks as outpatient after discharge and treat accordingly. DVT prophylaxis: Lovenox PUD prophylaxis: Pepcid Plan: Transfer patient to medical surgical floor. Continue current antibiotics. Follow-up with ID recommendations. Case discussed with . Problems: Subjective 24 Hr Interval Summary Free Text/Dictation Patient with painless dependent right lower extremity swelling and hyperpigmentation. Denies chest pain, shortness of breath or other discomfort. Has been afebrile Exam/Review of Systems Vital Signs Vitals Vital Signs Date Time Temp Pulse Resp B/P Pulse Ox O2 Delivery O2 Flow Rate FiO2 06/03/17 09:33 Nasal Cannula 3.0 06/03/17 08:39 84 06/03/17 07:46 98.1 16 138/66 97 Intake and Output 06/02/17 06/02/17 06/03/17 15:00 23:00 07:00 Intake Total 720 ml 650 ml Balance 720 ml 650 ml Exam General: Morbidly obese male, in mild respiratory distress.. HEENT: Normocephalic, Atraumatic, No laceration or hematoma; Eyes: PEERL, Conjunctiva clear, Anicteric sclera Neck: Supple without any lymphadenopathy, nontender, no JVD, no carotid bruits, trachea midline, no thyromegaly Cardiac: S1, S2 auscultated, regular rhythm and rate, no mumurs or gallop Pulmonary: Diminished breath sound bibasilar. Normal respiratory effort. No wheezing. GI: Abdomen obese and distended l to inspection. Non tender, non- distended, no masses, no rebound tenderness or guarding. Bowel sounds active on all four quadrants Genitourinary: Deferred Extremities: Dependent edema with hyperpigmentation on bilateral lower extremity R>L. No cyanosis. Pulses [2+] bilaterally. Full ROM on all four extremities. No focal weakness appreciated. Neurologic: Alert to person, place, time, and situation. Affect appropriate, intact sensation. Skin: Clean,dry, and intact. No ecchymosis, no rashes, or lesions Results Result Diagram: 06/03/17 0640 06/03/17 0643 Results 24 hrs Laboratory Tests Test 06/02/17 11:51 06/02/17 17:10 06/02/17 20:58 06/03/17 06:40 Bedside Glucose 100 124 124 White Blood Count 6.5 # Red Blood Count 4.50 L Hemoglobin 13.6 L Hematocrit 40.8 L Mean Corpuscular Volume 90.7 Mean Corpuscular Hemoglobin 30.2 Mean Corpuscular Hemoglobin Concent 33.3 Red Cell Distribution Width 12.9 Platelet Count 174 Mean Platelet Volume 10.4 Neutrophils % 64.9 Lymphocytes % 16.3 Monocytes % 15.7 H Eosinophils % 1.7 Basophils % 0.8 Nucleated Red Blood Cells % 0.0 Neutrophils # (Manual) 4 Lymphocytes # 1.1 Monocytes # 1.0 H Eosinophils # 0.1 Basophils # 0.1 Nucleated Red Blood Cells # 0.0 Test 06/03/17 06:43 06/03/17 07:36 Sodium Level 141 Potassium Level 4.0 Chloride Level 102 Carbon Dioxide Level 28 Anion Gap 15 Blood Urea Nitrogen 13 Creatinine 0.73 Glucose Level 114 Calcium Level 9.0 Magnesium Level 2.1 Bedside Glucose 102 Medications Medications Current Medications Ondansetron HCl (Zofran Inj) 4 mg Q6H PRN IV NAUSEA AND/OR VOMITING; Start at 12:30 Acetaminophen (Tylenol Tab) 650 mg Q6H PRN PO PAIN LEVEL 1-3 OR FEVER Last administered on 06/02/17t 20:55; Admin Dose 650 MG; Start 05/31/17 at 12:30 Acetaminophen (Tylenol Supp) 650 mg Q6H PRN [place] PAIN LEVEL 1-3 OR FEVER; Start 05/31/17 at 12:30 Morphine Sulfate (morphine) 2 mg Q4H PRN IV SEVERE PAIN LEVEL 7-10 Last administered on 06/01/17 16:18; Admin Dose 2 MG; Start 05/31/17 at 12:30 Docusate Sodium (Colace) 100 mg Q12H PRN PO CONSTIPATION Last administered on 13:17; Admin Dose 100 MG; Start 05/31/17 at 12:30 Zolpidem Tartrate (Ambien) 10 mg QHS PRN PO INSOMNIA Last administered on 21:14; Admin Dose 10 MG; Start 05/31/17 at 12:30 Enoxaparin Sodium (Lovenox) 40 mg DAILY SC Last administered on 06/03/17 08:32 ; Admin Dose 40 MG; Start 06/01/17 at 09:00 Lorazepam (Ativan) 0.5 mg Q6H PRN IV anxiety; Start 05/31/17 at 16:30 Diagnostic Test (Pha) (Accu-Chek) 1 ea 02 XX ; Start 06/02/17 at 02:00 Miscellaneous Information 1 ea NOTE XX ; Start 06/01/17 at 09:00 Glucose (Glutose) 15 gm Q15M PRN PO DECREASED GLUCOSE; Start 06/01/17 at 09:00 Glucose (Glutose) 22.5 gm Q15M PRN PO DECREASED GLUCOSE; Start 06/01/17 at 09: 00 Dextrose (D50w Syringe) 25 ml Q15M PRN IV DECREASED GLUCOSE; Start 06/01/17 at 09:00 Dextrose (D50w Syringe) 50 ml Q15M PRN IV DECREASED GLUCOSE; Start 06/01/17 at 09:00 Glucagon (Glucagen) 1 mg Q15M PRN IM DECREASED GLUCOSE; Start 06/01/17 at 09:00 Glucose 15 gm 15 gm Q15M PRN BUCCAL DECREASED GLUCOSE; Start 06/01/17 at 09:00 Ceftriaxone Sodium (Rocephin) 50 ml @ 100 mls/hr Q24H IVPB Last administered on 06/02/17 17:24; Admin Dose 100 MLS/HR; Start 06/01/17 at 18:00 Famotidine (Pepcid) 20 mg Q12 PO Last administered on 06/03/17 08:33; Admin Dose 20 MG; Start 06/01/17 at 21:00 Aspirin (Halfprin) 81 mg DAILY PO Last administered on 06/03/17 08:32; Admin Dose 81 MG; Start 06/03/17 at 09:00 Docusate Sodium (Colace) 100 mg DAILY PO Last administered on 06/03/17 08:32; Admin Dose 100 MG; Start 06/03/17 at 09:00 Dutasteride (Avodart) 0.5 mg DAILY PO Last administered on 06/03/17 08:32; Admin Dose 0.5 MG; Start 06/03/17 at 09:00 EZETIMIBE (Zetia) 10 mg DAILY PO Last administered on 06/03/17 08:33; Admin Dose 10 MG; Start 06/03/17 at 09:00 Tiotropium [place] (Spiriva) 1 inh DAILY INH Last administered on 06/03/17 08: 33; Admin Dose 1 INH; Start 06/03/17 at 09:00 Calcium/Vitamin D (Oyster Shell/ Vit-D (500/200)) 1 tab DAILY PO Last administered on 06/03/17 08:32; Admin Dose 1 TAB; Start 06/03/17 at 09:00 Magnesium Oxide (Mag-Ox 400) 400 mg BID PO Last administered on 06/03/17 08:32 ; Admin Dose 400 MG; Start 06/02/17 at 21:00 Memantine (Namenda) 10 mg BID PO Last administered on 06/03/17 08:32; Admin Dose 10 MG; Start 06/02/17 at 21:00 Gabapentin (Neurontin) 300 mg TID PO Last administered on 06/03/17 08:32; Admin Dose 300 MG; Start 06/02/17 at 13:00 Atorvastatin Calcium (Lipitor) 10 mg HS PO Last administered on 06/02/17 20:55 ; Admin Dose 10 MG; Start 06/02/17 at 21:00 Amlodipine Besylate (Norvasc) 5 mg DAILY PO Last administered on 06/03/17 08: 33; Admin Dose 5 MG; Start 06/02/17 at 12:30 DELMI GOODMAN NP Jun 03, 2017 10:38
[2017-06-03] MEDS: CREON (12k-38k-60k) 1 CAP PO SCH ×2 (11:23→18:38)
[2017-06-03] MEDS ORDERED: NA PHOSPHATE/BIPHOS 133 ML ENEMA PR ONE (11:30)
--- NOTE | 2017-06-03 12:16 | CONS ---
Date/Time of Note Date/Time of Note DATE: 06/03/17 TIME: 12:09 Assessment/Plan Assessment/Plan Chief Complaint/Hosp Course 81-year-old morbidly obese male with a past medical history of hypertension, arthritis, appendectomy, insomnia, and chronic lower extremity swelling who was brought to the emergency room with fever, chills, malaise, body aches, nausea, 2 times nonbilious, nonbloody vomiting, and abdominal pain which started early this morning. Patient also had slightly productive cough started yesterday. He also had mild shortness of breath. Patient denied any chest pain, palpitation, loss of consciousness, dizziness, upper or lower GI bleed episodes , dysuria or hematuria. Patient had elevated WBC 13,000 with a lactic acid 3.4 on arrival. He also had a fever of 102 with blood pressure 157/92 and heart rate 99. Urine analysis was negative. Initial chest x-ray with severe cardiomegaly and mild pulmonary vascular congestion. There was no infiltrates or effusion. A CT abdomen and pelvis without any acute intra-abdominal pathologies. There was hepatic steatosis with questionable proteinaceous or hemorrhagic cyst on upper poles of bilateral kidneys and an ultrasound was recommended. Patient was given cefepime , vancomycin and a total of 2.9 later fluid bolus in the emergency room and was admitted for further evaluation. pt had Sepsis with GBS bacteremia and lactic acidosis,unknown etiology- Possible community acquired pneumonia- on IV abx, ID consulted, On MRI abdmen with pelvis with contrast - he is noted to have Approximately 1.2 cm exophytic cyst in the upper pole left kidney and 1 cm cyst in the upper pole right kidney with imaging features consistent with hemorrhagic/proteinaceous cyst- renal has been consulted for it Problems: Additional Assessment/Plan 1. Bilateral kidney mass vs cyst- MRI abdomen + pelvis showed 1.2 cm exophytic cyst in the upper pole left kidney and 1 cm cyst in the upper pole right kidney with imaging features consistent with hemorrhagic/proteinaceous cyst. - pt has normal renal function, no proteinuria, no hematuria 2. sepsis with GBS bacteremia, unclear etiology at this time 3. Hypertension 4. Fatty liver 5. Bilateral LE chronic lymphedema Plan : MRI abdomen + pelvis showed 1.2 cm exophytic cyst in the upper pole left kidney and 1 cm cyst in the upper pole right kidney with imaging features consistent with hemorrhagic/proteinaceous cyst. - pt has normal renal function, no proteinuria, no hematuria- his infectioon source would be infected cysts. Cysts are not ruptured so no evidence of hematuria. Need IV abx for sepsis, Flouroquinolones would be better choice for infected cyst if pt continue to have recurrent bacteremia and if rising BUN/Cr then consider Urology consult continue Other abx as suggeseted by ID Monitor Electroltyes and replace as needed Renally dose all abx will need follow up Imaging( CT vs MRI ) fo tollow up on size of cyst in 1 year . Consultation Date/Type/Reason Admit Date/Time May 31, 2017 at 11:45 Initial Consult Date 06/02/17 Type of Consultation: NEPHROLOGY Referring Provider: CARMEN TOLEDO 24 HR Interval Summary Free Text/Dictation afebrile, BP stable, no complaints Exam/Review of Systems Vital Signs Vitals Vital Signs Date Time Temp Pulse Resp B/P Pulse Ox O2 Delivery O2 Flow Rate FiO2 06/03/17 12:03 98.2 74 16 161/68 97 06/03/17 09:33 Nasal Cannula 3.0 Intake and Output 06/02/17 06/02/17 06/03/17 15:00 23:00 07:00 Intake Total 720 ml 650 ml Balance 720 ml 650 ml Exam Constitutional: alert Respiratory: clear to auscultation Cardiovascular: nl pulses, regular rate and rhythm Gastrointestinal: non-tender, soft Musculoskeletal: muscle weakness, nl extremities to inspection, other (back tenderness ) Neurological: [employer] II-XII intact, nl mental status, nl speech, nl strength Results Result Diagram: 06/03/17 0640 06/03/17 0643 Results 24 hrs Laboratory Tests Test 06/02/17 17:10 06/02/17 20:58 06/03/17 06:40 06/03/17 06:43 Bedside Glucose 124 124 White Blood Count 6.5 # Red Blood Count 4.50 L Hemoglobin 13.6 L Hematocrit 40.8 L Mean Corpuscular Volume 90.7 Mean Corpuscular Hemoglobin 30.2 Mean Corpuscular Hemoglobin Concent 33.3 Red Cell Distribution Width 12.9 Platelet Count 174 Mean Platelet Volume 10.4 Neutrophils % 64.9 Lymphocytes % 16.3 Monocytes % 15.7 H Eosinophils % 1.7 Basophils % 0.8 Nucleated Red Blood Cells % 0.0 Neutrophils # (Manual) 4 Lymphocytes # 1.1 Monocytes # 1.0 H Eosinophils # 0.1 Basophils # 0.1 Nucleated Red Blood Cells # 0.0 Sodium Level 141 Potassium Level 4.0 Chloride Level 102 Carbon Dioxide Level 28 Anion Gap 15 Blood Urea Nitrogen 13 Creatinine 0.73 Glucose Level 114 Calcium Level 9.0 Magnesium Level 2.1 Test 06/03/17 07:36 06/03/17 11:25 Bedside Glucose 102 150 Medications Medications Current Medications Ondansetron HCl (Zofran Inj) 4 mg Q6H PRN IV NAUSEA AND/OR VOMITING; Start at 12:30 Acetaminophen (Tylenol Tab) 650 mg Q6H PRN PO PAIN LEVEL 1-3 OR FEVER Last administered on 06/02/17 20:55; Admin Dose 650 MG; Start 05/31/17 at 12:30 Acetaminophen (Tylenol Supp) 650 mg Q6H PRN [place] PAIN LEVEL 1-3 OR FEVER; Start 05/31/17 at 12:30 Morphine Sulfate (morphine) 2 mg Q4H PRN IV SEVERE PAIN LEVEL 7-10 Last administered on 06/01/17 16:18; Admin Dose 2 MG; Start 05/31/17 at 12:30 Docusate Sodium (Colace) 100 mg Q12H PRN PO CONSTIPATION Last administered on 13:17; Admin Dose 100 MG; Start 05/31/17 at 12:30 Zolpidem Tartrate (Ambien) 10 mg QHS PRN PO INSOMNIA Last administered on 21:14; Admin Dose 10 MG; Start 05/31/17 at 12:30 Enoxaparin Sodium (Lovenox) 40 mg DAILY SC Last administered on 06/03/17 08:32 ; Admin Dose 40 MG; Start 06/01/17 at 09:00 Lorazepam (Ativan) 0.5 mg Q6H PRN IV anxiety; Start 05/31/17 at 16:30 Diagnostic Test (Pha) (Accu-Chek) 1 ea 02 XX ; Start 06/02/17 at 02:00 Miscellaneous Information 1 ea NOTE XX ; Start 06/01/17 at 09:00 Glucose (Glutose) 15 gm Q15M PRN PO DECREASED GLUCOSE; Start 06/01/17 at 09:00 Glucose (Glutose) 22.5 gm Q15M PRN PO DECREASED GLUCOSE; Start 06/01/17 at 09: 00 Dextrose (D50w Syringe) 25 ml Q15M PRN IV DECREASED GLUCOSE; Start 06/01/17 at 09:00 Dextrose (D50w Syringe) 50 ml Q15M PRN IV DECREASED GLUCOSE; Start 06/01/17 at 09:00 Glucagon (Glucagen) 1 mg Q15M PRN IM DECREASED GLUCOSE; Start 06/01/17 at 09:00 Glucose 15 gm 15 gm Q15M PRN BUCCAL DECREASED GLUCOSE; Start 06/01/17 at 09:00 Ceftriaxone Sodium (Rocephin) 50 ml @ 100 mls/hr Q24H IVPB Last administered on 06/02/17 17:24; Admin Dose 100 MLS/HR; Start 06/01/17 at 18:00 Famotidine (Pepcid) 20 mg Q12 PO Last administered on 06/03/17 08:33; Admin Dose 20 MG; Start 06/01/17 at 21:00 Aspirin (Halfprin) 81 mg DAILY PO Last administered on 06/03/17 08:32; Admin Dose 81 MG; Start 06/03/17 at 09:00 Docusate Sodium (Colace) 100 mg DAILY PO Last administered on 06/03/17 08:32; Admin Dose 100 MG; Start 06/03/17 at 09:00 Dutasteride (Avodart) 0.5 mg DAILY PO Last administered on 06/03/17 08:32; Admin Dose 0.5 MG; Start 06/03/17 at 09:00 EZETIMIBE (Zetia) 10 mg DAILY PO Last administered on 06/03/17 08:33; Admin Dose 10 MG; Start 06/03/17 at 09:00 Tiotropium [place] (Spiriva) 1 inh DAILY INH Last administered on 06/03/17 08: 33; Admin Dose 1 INH; Start 06/03/17 at 09:00 Calcium/Vitamin D (Oyster Shell/ Vit-D (500/200)) 1 tab DAILY PO Last administered on 06/03/17 08:32; Admin Dose 1 TAB; Start 06/03/17 at 09:00 Magnesium Oxide (Mag-Ox 400) 400 mg BID PO Last administered on 06/03/17 08:32 ; Admin Dose 400 MG; Start 06/02/17 at 21:00 Memantine (Namenda) 10 mg BID PO Last administered on 06/03/17 08:32; Admin Dose 10 MG; Start 06/02/17 at 21:00 Gabapentin (Neurontin) 300 mg TID PO Last administered on 06/03/17 08:32; Admin Dose 300 MG; Start 06/02/17 at 13:00 Atorvastatin Calcium (Lipitor) 10 mg HS PO Last administered on 06/02/17 20:55 ; Admin Dose 10 MG; Start 06/02/17 at 21:00 Amlodipine Besylate (Norvasc) 5 mg DAILY PO Last administered on 06/03/17 08: 33; Admin Dose 5 MG; Start 06/02/17 at 12:30 JAIMIE QUINTERO MD Jun 03, 2017 12:15
--- NOTE | 2017-06-03 15:07 | RADRPT ---
PROCEDURE: Chest 1 views. CLINICAL INDICATION: Shortness of breath. TECHNIQUE: AP views of the chest was obtained. COMPARISON: May 31, 2017 FINDINGS: The heart is large. Central pulmonary vascular congestion and interstitial prominence is seen in bot h lungs. Scattered atelectasis is seen in the right lower lobe. Retrocardiac opacity is observed. Osseous structures are intact. IMPRESSION: Cardiomegaly . Central pulmonary vascular congestion and interstitial prominence is seen in both lungs. Retrocardiac opacity that may reflect left lower lobe atelectasis or infiltrate combined with small pleural effusion. Scattered atelectasis in the right lower lobe. RPTAT: AA .Bob Torrez MD, Date Time Electronically viewed and signed by .Bob Torrez MD, MD on 06/03/2017 15:07 .P/
--- NOTE | 2017-06-03 16:14 | CONS ---
Date/Time of Note Date/Time of Note DATE: 06/03/17 TIME: 16:10 Assessment/Plan Assessment/Plan Chief Complaint/Hosp Course SUBJECTIVE DATA: No acute events overnight. The patient is alert, ambulating in the room, no fevers, nad MICROBIOLOGY: Blood culture growing strep agalactiae group B repeat bld cx negative. CT of the abdomen and pelvis on admission revealed no mass, lymphadenopathy or focal acute inflammatory process, small hiatal hernia, hepatomegaly, cardiomegaly approximately 1.2 cm exophytic hyperdense structure in the upper pole left kidney. MRI of the abdomen revealed no renal mass, approximately 1.2 cm exophytic cyst in the upper pole left kidney and 1 cm cyst in the upper pole right kidney with imaging features consistent with hemorrhagic/proteinaceous cyst, hepatomegaly. Chest x-ray revealed no definite focal infiltrates or effusions. Severe cardiomegaly and mild pulmonary vascular congestion. Extremity venous study was essentially negative for DVT. ANTIMICROBIAL: The patient is on Rocephin. PHYSICAL EXAMINATION: GENERAL: This is a morbidly obese, well developed, elderly man who is awake, in no distress. HEENT: Head atraumatic, normocephalic. Sclerae anicteric. Buccal mucosa pink. NECK: Obese. CHEST: Symmetrical. Breath sounds with expiratory wheezes and prolonged expiratory phase. HEART: S1, S2. ABDOMEN: Obese, soft, bowel sounds present. EXTREMITIES: Maurice-wrapped BLE ASSESSMENT: 1. Streptococcal bacteremia, likely pulmonary source, 2D ECHO neg vegetations 2. Morbid obesity. 3. Pulmonary vascular congestion with cardiomegaly. 4. Hypertension. PLAN: The patient remains stable, repeat bld cx negative, will keep him on Rocephin for 2 weeks [facility] staff Problems: Consultation Date/Type/Reason Admit Date/Time May 31, 2017 at 11:45 Initial Consult Date 06/02/17 Type of Consultation: id Referring Provider: CARMEN TOLEDO Exam/Review of Systems Vital Signs Vitals Vital Signs Date Time Temp Pulse Resp B/P Pulse Ox O2 Delivery O2 Flow Rate FiO2 06/03/17 15:55 152/62 06/03/17 15:33 98.1 83 18 96 06/03/17 13:20 Nasal Cannula 3.0 Intake and Output 06/02/17 06/02/17 06/03/17 14:59 22:59 06:59 Intake Total 720 ml 650 ml Balance 720 ml 650 ml Results Result Diagram: 06/03/17 0640 06/03/17 0643 Results 24 hrs Laboratory Tests Test 06/02/17 17:10 06/02/17 20:58 06/03/17 06:40 06/03/17 06:43 Bedside Glucose 124 124 White Blood Count 6.5 # Red Blood Count 4.50 L Hemoglobin 13.6 L Hematocrit 40.8 L Mean Corpuscular Volume 90.7 Mean Corpuscular Hemoglobin 30.2 Mean Corpuscular Hemoglobin Concent 33.3 Red Cell Distribution Width 12.9 Platelet Count 174 Mean Platelet Volume 10.4 Neutrophils % 64.9 Lymphocytes % 16.3 Monocytes % 15.7 H Eosinophils % 1.7 Basophils % 0.8 Nucleated Red Blood Cells % 0.0 Neutrophils # (Manual) 4 Lymphocytes # 1.1 Monocytes # 1.0 H Eosinophils # 0.1 Basophils # 0.1 Nucleated Red Blood Cells # 0.0 Sodium Level 141 Potassium Level 4.0 Chloride Level 102 Carbon Dioxide Level 28 Anion Gap 15 Blood Urea Nitrogen 13 Creatinine 0.73 Glucose Level 114 Calcium Level 9.0 Magnesium Level 2.1 Test 06/03/17 07:36 06/03/17 11:25 Bedside Glucose 102 150 Medications Medications Current Medications Ondansetron HCl (Zofran Inj) 4 mg Q6H PRN IV NAUSEA AND/OR VOMITING; Start at 12:30 Acetaminophen (Tylenol Tab) 650 mg Q6H PRN PO PAIN LEVEL 1-3 OR FEVER Last administered on 06/02/17 20:55; Admin Dose 650 MG; Start 05/31/17 at 12:30 Acetaminophen (Tylenol Supp) 650 mg Q6H PRN [place] PAIN LEVEL 1-3 OR FEVER; Start 05/31/17 at 12:30 Morphine Sulfate (morphine) 2 mg Q4H PRN IV SEVERE PAIN LEVEL 7-10 Last administered on 06/01/17 16:18; Admin Dose 2 MG; Start 05/31/17 at 12:30 Docusate Sodium (Colace) 100 mg Q12H PRN PO CONSTIPATION Last administered on 13:17; Admin Dose 100 MG; Start 05/31/17 at 12:30 Zolpidem Tartrate (Ambien) 10 mg QHS PRN PO INSOMNIA Last administered on 21:14; Admin Dose 10 MG; Start 05/31/17 at 12:30 Enoxaparin Sodium (Lovenox) 40 mg DAILY SC Last administered on 06/03/17 08:32 ; Admin Dose 40 MG; Start 06/01/17 at 09:00 Lorazepam (Ativan) 0.5 mg Q6H PRN IV anxiety; Start 05/31/17 at 16:30 Diagnostic Test (Pha) (Accu-Chek) 1 ea 02 XX ; Start 06/02/17 at 02:00 Miscellaneous Information 1 ea NOTE XX ; Start 06/01/17 at 09:00 Glucose (Glutose) 15 gm Q15M PRN PO DECREASED GLUCOSE; Start 06/01/17 at 09:00 Glucose (Glutose) 22.5 gm Q15M PRN PO DECREASED GLUCOSE; Start 06/01/17 at 09: 00 Dextrose (D50w Syringe) 25 ml Q15M PRN IV DECREASED GLUCOSE; Start 06/01/17 at 09:00 Dextrose (D50w Syringe) 50 ml Q15M PRN IV DECREASED GLUCOSE; Start 06/01/17 at 09:00 Glucagon (Glucagen) 1 mg Q15M PRN IM DECREASED GLUCOSE; Start 06/01/17 at 09:00 Glucose 15 gm 15 gm Q15M PRN BUCCAL DECREASED GLUCOSE; Start 06/01/17 at 09:00 Ceftriaxone Sodium (Rocephin) 50 ml @ 100 mls/hr Q24H IVPB Last administered on 06/02/17 17:24; Admin Dose 100 MLS/HR; Start 06/01/17 at 18:00 Famotidine (Pepcid) 20 mg Q12 PO Last administered on 06/03/17 08:33; Admin Dose 20 MG; Start 06/01/17 at 21:00 Aspirin (Halfprin) 81 mg DAILY PO Last administered on 06/03/17 08:32; Admin Dose 81 MG; Start 06/03/17 at 09:00 Docusate Sodium (Colace) 100 mg DAILY PO Last administered on 06/03/17 08:32; Admin Dose 100 MG; Start 06/03/17 at 09:00 Dutasteride (Avodart) 0.5 mg DAILY PO Last administered on 06/03/17 08:32; Admin Dose 0.5 MG; Start 06/03/17 at 09:00 EZETIMIBE (Zetia) 10 mg DAILY PO Last administered on 06/03/17 08:33; Admin Dose 10 MG; Start 06/03/17 at 09:00 Tiotropium [place] (Spiriva) 1 inh DAILY INH Last administered on 06/03/17 08: 33; Admin Dose 1 INH; Start 06/03/17 at 09:00 Calcium/Vitamin D (Oyster Shell/ Vit-D (500/200)) 1 tab DAILY PO Last administered on 06/03/17 08:32; Admin Dose 1 TAB; Start 06/03/17 at 09:00 Magnesium Oxide (Mag-Ox 400) 400 mg BID PO Last administered on 06/03/17 08:32 ; Admin Dose 400 MG; Start 06/02/17 at 21:00 Memantine (Namenda) 10 mg BID PO Last administered on 06/03/17 08:32; Admin Dose 10 MG; Start 06/02/17 at 21:00 Gabapentin (Neurontin) 300 mg TID PO Last administered on 06/03/17 12:17; Admin Dose 300 MG; Start 06/02/17 at 13:00 Atorvastatin Calcium (Lipitor) 10 mg HS PO Last administered on 06/02/17 20:55 ; Admin Dose 10 MG; Start 06/02/17 at 21:00 Amlodipine Besylate (Norvasc) 5 mg DAILY PO Last administered on 06/03/17 08: 33; Admin Dose 5 MG; Start 06/02/17 at 12:30 BIANCA ALATORRE NP Jun 03, 2017 16:14
[2017-06-03] MEDS: CEFTRIAXONE 1 GM/50 ML (PMX) 50 ML IVPB SCH (17:25)
[2017-06-03] MEDS: ATORVASTATIN 10 MG TAB PO SCH (22:13)
[2017-06-03] MEDS: ZOLPIDEM 5 MG TAB PO PRN (22:17)
[2017-06-03] MEDS: ACETAMINOPHEN 325 MG TAB PO PRN (22:17)
[2017-06-04] MEDS: ALBUTEROL/IPRATROPIUM (NEB) 3 ML AMP HHN SCH ×6 (00:48→20:20)
[2017-06-04 02:00] VITALS: BP 150/63; PULSE 85; RESP 18
[2017-06-04] MEDS: ACETAMINOPHEN 325 MG TAB PO PRN (04:35)
[2017-06-04 06:31] LABS: BASOPHIL # 0.1 10^3/ul (0.0-0.1); BASOPHILS % 1.3 % (0.0-2.0); EOSINOPHILS # 0.1 10^3/ul (0.0-0.5); EOSINOPHILS % 2.8 % (0.0-7.0); HEMATOCRIT 44.1 % (42.0-52.0); HEMOGLOBIN 14.3 g/dl (14.0-18.0); LYMPHOCYTES # 1.5 10^3/ul (0.8-2.9); LYMPHOCYTES % 33.3 % (15.0-51.0); MEAN CORPUSCULAR HEMOGLOBIN 29.6 pg (29.0-33.0); MEAN CORPUSCULAR HGB CONC 32.4 g/dl (32.0-37.0); MEAN CORPUSCULAR VOLUME 91.3 fl (82.0-101.0); MEAN PLATELET VOLUME 9.9 fl (7.4-10.4); MONOCYTE # 0.8 10^3/ul (0.3-0.9); MONOCYTES % 18.2 % (0.0-11.0); NEUTROPHILS % 42.7 % (39.0-77.0); PLATELET COUNT 207 10^3/UL (140-415); RED BLOOD COUNT 4.83 10^6/ul (4.70-6.10); RED CELL DISTRIBUTION WIDTH 12.3 % (11.5-14.5); WHITE BLOOD COUNT 4.6 10^3/ul (4.8-10.8)
[2017-06-04 06:59] LABS: CALCIUM 9.5 mg/dl (8.4-10.2); CREATININE 0.84 mg/dl (0.61-1.24); POTASSIUM 3.8 mmol/L (3.5-5.1)
[2017-06-04] MEDS: INSULIN ASPART [NOVOLOG] 3 ML PEN SC SCH ×4 (08:00→20:54)
[2017-06-04 08:10] VITALS: BP 160/66; RESP 16
[2017-06-04] MEDS: TIOTROPIUM 18 MCG CAPSULE INHA DEV INH SCH (08:43)
[2017-06-04] MEDS: GABAPENTIN 300 MG CAP PO SCH ×3 (08:43→20:51)
[2017-06-04] MEDS: DUTASTERIDE 0.5 MG CAP PO SCH (08:43)
[2017-06-04] MEDS: DOCUSATE SODIUM 100 MG CAP PO SCH (08:43)
[2017-06-04] MEDS: FAMOTIDINE 20 MG TAB PO SCH ×2 (08:43→20:51)
[2017-06-04] MEDS: ASPIRIN (EC) 81 MG TAB PO SCH (08:43)
[2017-06-04] MEDS: CALCIUM/VITAMIN D (500/200) TAB PO SCH (08:43)
[2017-06-04] MEDS: MAGNESIUM OXIDE 400 MG TAB PO SCH ×2 (08:45→20:51)
[2017-06-04] MEDS: EZETIMIBE 10 MG TAB PO SCH (08:45)
[2017-06-04] MEDS: AMLODIPINE 5 MG TAB PO SCH (08:45)
[2017-06-04] MEDS: MEMANTINE 10 MG TAB PO SCH ×2 (08:45→20:56)
[2017-06-04] MEDS: CREON (12k-38k-60k) 1 CAP PO SCH ×3 (08:47→17:51)
[2017-06-04] MEDS: ENOXAPARIN 40 MG/0.4 ML SYG SC SCH (08:48)
[2017-06-04 12:59] VITALS: BP 182/77; RESP 18
--- NOTE | 2017-06-04 13:01 | CONS ---
Date/Time of Note Date/Time of Note DATE: 06/04/17 TIME: 12:57 Assessment/Plan Assessment/Plan Additional Assessment/Plan 1. Bilateral kidney mass vs cyst- MRI abdomen + pelvis showed 1.2 cm exophytic cyst in the upper pole left kidney and 1 cm cyst in the upper pole right kidney with imaging features consistent with hemorrhagic/proteinaceous cyst. - pt has normal renal function, no proteinuria, no hematuria 2. sepsis with GBS bacteremia, unclear etiology at this time- ID follows 3. Hypertension 4. Fatty liver 5. Bilateral LE chronic lymphedema Plan : -MRI abdomen + pelvis showed 1.2 cm exophytic cyst in the upper pole left kidney and 1 cm cyst in the upper pole right kidney with imaging features consistent with hemorrhagic/proteinaceous cyst. - pt has normal renal function, no proteinuria, no hematuria- his infection source would be infected cysts. Cysts are not ruptured so no evidence of hematuria. -Need IV abx for sepsis, Fluoroquinolones would be better choice for infected cyst -if pt continue to have recurrent bacteremia and if rising BUN/Cr then consider Urology consult - On Rocephin -Monitor Electrolytes and replace as needed -Renally dose all abx will need follow up Imaging( CT vs MRI ) fo tollow up on size of cyst in 1 year . Consultation Date/Type/Reason Admit Date/Time May 31, 2017 at 11:45 Initial Consult Date 06/02/17 Type of Consultation: id Referring Provider: CARMEN TOLEDO Exam/Review of Systems Vital Signs Vitals Vital Signs Date Time Temp Pulse Resp B/P Pulse Ox O2 Delivery O2 Flow Rate FiO2 06/04/17 08:55 85 20 95 Nasal Cannula 2.0 06/04/17 08:10 98.0 160/66 06/04/17 04:27 21 Intake and Output 06/03/17 06/03/17 06/04/17 15:00 23:00 07:00 Intake Total 530 ml 550 ml Output Total 1300 ml Balance 530 ml -750 ml Exam Constitutional: alert, oriented Respiratory: clear to auscultation, normal air movement Cardiovascular: nl pulses, regular rate and rhythm Gastrointestinal: non-tender, soft Musculoskeletal: swelling Extremities: edema Neurological: nl mental status, nl speech Results Result Diagram: 06/04/17 0519 06/04/17 0519 Results 24 hrs Laboratory Tests Test 06/03/17 17:07 06/03/17 22:12 06/04/17 05:19 06/04/17 08:19 Bedside Glucose 118 108 116 White Blood Count 4.6 #L Red Blood Count 4.83 Hemoglobin 14.3 Hematocrit 44.1 Mean Corpuscular Volume 91.3 Mean Corpuscular Hemoglobin 29.6 Mean Corpuscular Hemoglobin Concent 32.4 Red Cell Distribution Width 12.3 Platelet Count 207 Mean Platelet Volume 9.9 Neutrophils % 42.7 Lymphocytes % 33.3 Monocytes % 18.2 H Eosinophils % 2.8 Basophils % 1.3 Nucleated Red Blood Cells % 0.0 Neutrophils # (Manual) 2 Lymphocytes # 1.5 Monocytes # 0.8 Eosinophils # 0.1 Basophils # 0.1 Nucleated Red Blood Cells # 0.0 Sodium Level 142 Potassium Level 3.8 Chloride Level 101 Carbon Dioxide Level 31 Anion Gap 14 Blood Urea Nitrogen 14 Creatinine 0.84 Glucose Level 124 Calcium Level 9.5 Magnesium Level 2.0 Test 06/04/17 11:54 Bedside Glucose 112 Medications Medications Current Medications Ondansetron HCl (Zofran Inj) 4 mg Q6H PRN IV NAUSEA AND/OR VOMITING; Start at 12:30 Acetaminophen (Tylenol Tab) 650 mg Q6H PRN PO PAIN LEVEL 1-3 OR FEVER Last administered on 06/04/17 04:35; Admin Dose 650 MG; Start 05/31/17 at 12:30 Acetaminophen (Tylenol Supp) 650 mg Q6H PRN [place] PAIN LEVEL 1-3 OR FEVER; Start 05/31/17 at 12:30 Morphine Sulfate (morphine) 2 mg Q4H PRN IV SEVERE PAIN LEVEL 7-10 Last administered on 06/01/17 16:18; Admin Dose 2 MG; Start 05/31/17 at 12:30 Docusate Sodium (Colace) 100 mg Q12H PRN PO CONSTIPATION Last administered on 13:17; Admin Dose 100 MG; Start 05/31/17 at 12:30 Zolpidem Tartrate (Ambien) 10 mg QHS PRN PO INSOMNIA Last administered on 22:17; Admin Dose 10 MG; Start 05/31/17 at 12:30 Enoxaparin Sodium (Lovenox) 40 mg DAILY SC Last administered on 06/04/17 08:48 ; Admin Dose 40 MG; Start 06/01/17 at 09:00 Lorazepam (Ativan) 0.5 mg Q6H PRN IV anxiety; Start 05/31/17 at 16:30 Diagnostic Test (Pha) (Accu-Chek) 1 ea 02 XX ; Start 06/02/17 at 02:00 Miscellaneous Information 1 ea NOTE XX ; Start 06/01/17 at 09:00 Glucose (Glutose) 15 gm Q15M PRN PO DECREASED GLUCOSE; Start 06/01/17 at 09:00 Glucose (Glutose) 22.5 gm Q15M PRN PO DECREASED GLUCOSE; Start 06/01/17 at 09: 00 Dextrose (D50w Syringe) 25 ml Q15M PRN IV DECREASED GLUCOSE; Start 06/01/17 at 09:00 Dextrose (D50w Syringe) 50 ml Q15M PRN IV DECREASED GLUCOSE; Start 06/01/17 at 09:00 Glucagon (Glucagen) 1 mg Q15M PRN IM DECREASED GLUCOSE; Start 06/01/17 at 09:00 Glucose 15 gm 15 gm Q15M PRN BUCCAL DECREASED GLUCOSE; Start 06/01/17 at 09:00 Ceftriaxone Sodium (Rocephin) 50 ml @ 100 mls/hr Q24H IVPB Last administered on 06/03/17 17:25; Admin Dose 100 MLS/HR; Start 06/01/17 at 18:00 Famotidine (Pepcid) 20 mg Q12 PO Last administered on 06/04/17 08:43; Admin Dose 20 MG; Start 06/01/17 at 21:00 Aspirin (Halfprin) 81 mg DAILY PO Last administered on 06/04/17 08:43; Admin Dose 81 MG; Start 06/03/17 at 09:00 Docusate Sodium (Colace) 100 mg DAILY PO Last administered on 06/04/17 08:43; Admin Dose 100 MG; Start 06/03/17 at 09:00 Dutasteride (Avodart) 0.5 mg DAILY PO Last administered on 06/04/17 08:43; Admin Dose 0.5 MG; Start 06/03/17 at 09:00 EZETIMIBE (Zetia) 10 mg DAILY PO Last administered on 06/04/17 08:45; Admin Dose 10 MG; Start 06/03/17 at 09:00 Tiotropium [place] (Spiriva) 1 inh DAILY INH Last administered on 06/04/17 08: 43; Admin Dose 1 INH; Start 06/03/17 at 09:00 Calcium/Vitamin D (Oyster Shell/ Vit-D (500/200)) 1 tab DAILY PO Last administered on 06/04/17 08:43; Admin Dose 1 TAB; Start 06/03/17 at 09:00 Magnesium Oxide (Mag-Ox 400) 400 mg BID PO Last administered on 06/04/17 08:45 ; Admin Dose 400 MG; Start 06/02/17 at 21:00 Memantine (Namenda) 10 mg BID PO Last administered on 06/04/17 08:45; Admin Dose 10 MG; Start 06/02/17 at 21:00 Gabapentin (Neurontin) 300 mg TID PO Last administered on 06/04/17 12:12; Admin Dose 300 MG; Start 06/02/17 at 13:00 Atorvastatin Calcium (Lipitor) 10 mg HS PO Last administered on 06/03/17 22:13 ; Admin Dose 10 MG; Start 06/02/17 at 21:00 Amlodipine Besylate (Norvasc) 5 mg DAILY PO Last administered on 06/04/17 08: 45; Admin Dose 5 MG; Start 06/02/17 at 12:30 JORGE REID Jun 04, 2017 13:01
[2017-06-04 13:15] VITALS: BP 165/77
[2017-06-04 14:46] VITALS: BP 149/69; RESP 18
--- NOTE | 2017-06-04 15:19 | PN ---
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 Weight loss would be best in the setting. No other therapeutic maneuvers are presently indicated. (2) Abnormal thyroid function test Status: Acute Comment: This a fairly typical picture of euthyroid sick. No indication for additional therapeutics. This can be rechecked when is been out of the hospital for a month (3) Bilateral renal cysts Status: Chronic Comment: I am in agreement with a nephrology consult but no additional activity needs to be undertaken other than her repeat imaging study in roughly 1 year I do not believe this is a source of infection (4) Essential hypertension Status: Chronic Comment: The patient has chronic lower extremity edema. The amlodipine will aggravate this and as such I am oppose the amlodipine. Given the known BPH for which he is already on dutasteride and alpha blockade would be an appropriate maneuver here. In addition to this given the known diastolic dysfunction on echocardiogram with a lower extremity edema and beta-blockade would also be indicated. I will make these transitions now (5) Diastolic dysfunction Status: Chronic Comment: 1 dose of oral diuretics, change the blood pressure medication around (6) Pre-diabetes Status: Chronic Comment: This is due to his morbid obesity. He and his family been counseled extensively that a 5% weight loss would resolve great deal of issues (7) Sepsis due to group B Streptococcus Status: Acute Comment: He is presently on appropriate antibiotic therapy. (8) Morbid obesity with BMI of 40.0-44.9, adult Status: Chronic Comment: As above he been counseled cares carefully about the benefits of a 5% weight loss Assessment/Plan At this time I am not entirely clear why this patient was initiated on Creon therapy. In addition I am not entirely clear why the usage of T appropriate in this gentleman with BPH. Subjective 24 Hr Interval Summary Free Text/Dictation Charming older gentleman sitting up in bed. Does not have his oxygen on. With the son translating he reports he is doing well but still has swollen legs Constitutional: no complaints (No fevers chills or sweats) Respiratory: no complaints Cardiovascular: no complaints Gastrointestinal: no complaints Genitourinary: no complaints Musculoskeletal: no complaints Exam/Review of Systems Vital Signs Vitals Vital Signs Date Time Temp Pulse Resp B/P Pulse Ox O2 Delivery O2 Flow Rate FiO2 06/04/17 14:46 97.7 76 18 149/69 93 06/04/17 10:00 Nasal Cannula 3.0 06/04/17 04:27 21 Intake and Output 06/03/17 06/03/17 06/04/17 14:59 22:59 06:59 Intake Total 530 ml 550 ml Output Total 1300 ml Balance 530 ml -750 ml Exam Constitutional: alert, oriented Respiratory: clear to auscultation, normal air movement Cardiovascular: nl pulses, regular rate and rhythm Gastrointestinal: nl liver, spleen, non-tender, soft Results Result Diagram: 06/04/17 0519 06/04/17518 Results 24 hrs Laboratory Tests Test 06/03/17 17:07 06/03/17 22:12 06/04/17 05:19 06/04/17 08:19 Bedside Glucose 118 108 116 White Blood Count 4.6 #L Red Blood Count 4.83 Hemoglobin 14.3 Hematocrit 44.1 Mean Corpuscular Volume 91.3 Mean Corpuscular Hemoglobin 29.6 Mean Corpuscular Hemoglobin Concent 32.4 Red Cell Distribution Width 12.3 Platelet Count 207 Mean Platelet Volume 9.9 Neutrophils % 42.7 Lymphocytes % 33.3 Monocytes % 18.2 H Eosinophils % 2.8 Basophils % 1.3 Nucleated Red Blood Cells % 0.0 Neutrophils # (Manual) 2 Lymphocytes # 1.5 Monocytes # 0.8 Eosinophils # 0.1 Basophils # 0.1 Nucleated Red Blood Cells # 0.0 Sodium Level 142 Potassium Level 3.8 Chloride Level 101 Carbon Dioxide Level 31 Anion Gap 14 Blood Urea Nitrogen 14 Creatinine 0.84 Glucose Level 124 Calcium Level 9.5 Magnesium Level 2.0 Test 06/04/17 11:54 Bedside Glucose 112 Medications Medications Current Medications Ondansetron HCl (Zofran Inj) 4 mg Q6H PRN IV NAUSEA AND/OR VOMITING; Start at 12:30 Acetaminophen (Tylenol Tab) 650 mg Q6H PRN PO PAIN LEVEL 1-3 OR FEVER Last administered on 06/04/17t 04:35; Admin Dose 650 MG; Start 05/31/17 at 12:30 Acetaminophen (Tylenol Supp) 650 mg Q6H PRN MD PAIN LEVEL 1-3 OR FEVER; Start 05/31/17 at 12:30 Morphine Sulfate (morphine) 2 mg Q4H PRN IV SEVERE PAIN LEVEL 7-10 Last administered on 06/01/17 16:18; Admin Dose 2 MG; Start 05/31/17 at 12:30 Docusate Sodium (Colace) 100 mg Q12H PRN PO CONSTIPATION Last administered on 13:17; Admin Dose 100 MG; Start 05/31/17 at 12:30 Zolpidem Tartrate (Ambien) 10 mg QHS PRN PO INSOMNIA Last administered on 22:17; Admin Dose 10 MG; Start 05/31/17 at 12:30 Enoxaparin Sodium (Lovenox) 40 mg DAILY SC Last administered on 06/04/17 08:48 ; Admin Dose 40 MG; Start 06/01/17 at 09:00 Lorazepam (Ativan) 0.5 mg Q6H PRN IV anxiety; Start 05/31/17 at 16:30 Diagnostic Test (Pha) (Accu-Chek) 1 ea 02 XX ; Start 06/02/17 at 02:00 Miscellaneous Information 1 ea NOTE XX ; Start 06/01/17 at 09:00 Glucose (Glutose) 15 gm Q15M PRN PO DECREASED GLUCOSE; Start 06/01/17 at 09:00 Glucose (Glutose) 22.5 gm Q15M PRN PO DECREASED GLUCOSE; Start 06/01/17 at 09: 00 Dextrose (D50w Syringe) 25 ml Q15M PRN IV DECREASED GLUCOSE; Start 06/01/17 at 09:00 Dextrose (D50w Syringe) 50 ml Q15M PRN IV DECREASED GLUCOSE; Start 06/01/17 at 09:00 Glucagon (Glucagen) 1 mg Q15M PRN IM DECREASED GLUCOSE; Start 06/01/17 at 09:00 Glucose 15 gm 15 gm Q15M PRN BUCCAL DECREASED GLUCOSE; Start 06/01/17 at 09:00 Ceftriaxone Sodium (Rocephin) 50 ml @ 100 mls/hr Q24H IVPB Last administered on 06/03/17 17:25; Admin Dose 100 MLS/HR; Start 06/01/17 at 18:00 Famotidine (Pepcid) 20 mg Q12 PO Last administered on 06/04/17 08:43; Admin Dose 20 MG; Start 06/01/17 at 21:00 Aspirin (Halfprin) 81 mg DAILY PO Last administered on 06/04/17 08:43; Admin Dose 81 MG; Start 06/03/17 at 09:00 Docusate Sodium (Colace) 100 mg DAILY PO Last administered on 06/04/17 08:43; Admin Dose 100 MG; Start 06/03/17 at 09:00 Dutasteride (Avodart) 0.5 mg DAILY PO Last administered on 06/04/17 08:43; Admin Dose 0.5 MG; Start 06/03/17 at 09:00 EZETIMIBE (Zetia) 10 mg DAILY PO Last administered on 06/04/17 08:45; Admin Dose 10 MG; Start 06/03/17 at 09:00 Tiotropium [employer] (Spiriva) 1 inh DAILY INH Last administered on 06/04/17 08: 43; Admin Dose 1 INH; Start 06/03/17 at 09:00 Calcium/Vitamin D (Oyster Shell/ Vit-D (500/200)) 1 tab DAILY PO Last administered on 06/04/17 08:43; Admin Dose 1 TAB; Start 06/03/17 at 09:00 Magnesium Oxide (Mag-Ox 400) 400 mg BID PO Last administered on 06/04/17 08:45 ; Admin Dose 400 MG; Start 06/02/17 at 21:00 Memantine (Namenda) 10 mg BID PO Last administered on 06/04/17 08:45; Admin Dose 10 MG; Start 06/02/17 at 21:00 Gabapentin (Neurontin) 300 mg TID PO Last administered on 06/04/17 12:12; Admin Dose 300 MG; Start 06/02/17 at 13:00 Atorvastatin Calcium (Lipitor) 10 mg HS PO Last administered on 06/03/17 22:13 ; Admin Dose 10 MG; Start 06/02/17 at 21:00 Amlodipine Besylate (Norvasc) 5 mg DAILY PO Last administered on 06/04/17 08: 45; Admin Dose 5 MG; Start 06/02/17 at 12:30 TASHA MAS MD Jun 04, 2017 15:19
[2017-06-04] MEDS ORDERED: FUROSEMIDE 20 MG TAB PO ONE (15:30)
[2017-06-04] MEDS ORDERED: DOXAZOSIN 1 MG TAB PO ONE (16:00)
--- NOTE | 2017-06-04 16:21 | CONS ---
Date/Time of Note Date/Time of Note DATE: 06/04/17 TIME: 16:20 Assessment/Plan Assessment/Plan Chief Complaint/Hosp Course SUBJECTIVE DATA: No acute events overnight. The patient is alert, looks comfortable, no fevers, nad MICROBIOLOGY: Blood culture growing strep agalactiae group B repeat bld cx negative. CT of the abdomen and pelvis on admission revealed no mass, lymphadenopathy or focal acute inflammatory process, small hiatal hernia, hepatomegaly, cardiomegaly approximately 1.2 cm exophytic hyperdense structure in the upper pole left kidney. MRI of the abdomen revealed no renal mass, approximately 1.2 cm exophytic cyst in the upper pole left kidney and 1 cm cyst in the upper pole right kidney with imaging features consistent with hemorrhagic/proteinaceous cyst, hepatomegaly. Chest x-ray revealed no definite focal infiltrates or effusions. Severe cardiomegaly and mild pulmonary vascular congestion. Extremity venous study was essentially negative for DVT. ANTIMICROBIAL: The patient is on Rocephin. PHYSICAL EXAMINATION: GENERAL: This is a morbidly obese, well developed, elderly man who is awake, in no distress. HEENT: Head atraumatic, normocephalic. Sclerae anicteric. Buccal mucosa pink. NECK: Obese. CHEST: Symmetrical. Breath sounds with expiratory wheezes and prolonged expiratory phase. HEART: S1, S2. ABDOMEN: Obese, soft, bowel sounds present. EXTREMITIES: Maurice-wrapped BLE ASSESSMENT: 1. Streptococcal bacteremia, likely pulmonary source, 2D ECHO neg vegetations 2. Morbid obesity. 3. Pulmonary vascular congestion with cardiomegaly. 4. Hypertension. PLAN: The patient remains stable, repeat bld cx negative, will keep him on Rocephin for 10 more days [facility] staff Problems: Consultation Date/Type/Reason Admit Date/Time May 31, 2017 at 11:45 Initial Consult Date 06/02/17 Type of Consultation: id Referring Provider: CARMEN TOLEDO Exam/Review of Systems Vital Signs Vitals Vital Signs Date Time Temp Pulse Resp B/P Pulse Ox O2 Delivery O2 Flow Rate FiO2 06/04/17 15:22 3.0 06/04/17 15:14 79 19 96 Nasal Cannula 06/04/17 14:46 97.7 149/69 06/04/17 04:27 21 Intake and Output 06/03/17 06/03/17 06/04/17 15:00 23:00 07:00 Intake Total 530 ml 550 ml Output Total 1300 ml Balance 530 ml -750 ml Results Result Diagram: 06/04/1719 06/04/17 0519 Results 24 hrs Laboratory Tests Test 06/03/17 17:07 06/03/17 22:12 06/04/17 05:19 06/04/17 08:19 Bedside Glucose 118 108 116 White Blood Count 4.6 #L Red Blood Count 4.83 Hemoglobin 14.3 Hematocrit 44.1 Mean Corpuscular Volume 91.3 Mean Corpuscular Hemoglobin 29.6 Mean Corpuscular Hemoglobin Concent 32.4 Red Cell Distribution Width 12.3 Platelet Count 207 Mean Platelet Volume 9.9 Neutrophils % 42.7 Lymphocytes % 33.3 Monocytes % 18.2 H Eosinophils % 2.8 Basophils % 1.3 Nucleated Red Blood Cells % 0.0 Neutrophils # (Manual) 2 Lymphocytes # 1.5 Monocytes # 0.8 Eosinophils # 0.1 Basophils # 0.1 Nucleated Red Blood Cells # 0.0 Sodium Level 142 Potassium Level 3.8 Chloride Level 101 Carbon Dioxide Level 31 Anion Gap 14 Blood Urea Nitrogen 14 Creatinine 0.84 Glucose Level 124 Calcium Level 9.5 Magnesium Level 2.0 Test 06/04/17 11:54 Bedside Glucose 112 Medications Medications Current Medications Ondansetron HCl (Zofran Inj) 4 mg Q6H PRN IV NAUSEA AND/OR VOMITING; Start at 12:30 Acetaminophen (Tylenol Tab) 650 mg Q6H PRN PO PAIN LEVEL 1-3 OR FEVER Last administered on 06/04/17 04:35; Admin Dose 650 MG; Start 05/31/17 at 12:30 Acetaminophen (Tylenol Supp) 650 mg Q6H PRN DC PAIN LEVEL 1-3 OR FEVER; Start 05/31/17 at 12:30 Morphine Sulfate (morphine) 2 mg Q4H PRN IV SEVERE PAIN LEVEL 7-10 Last administered on 06/01/17 16:18; Admin Dose 2 MG; Start 05/31/17 at 12:30 Docusate Sodium (Colace) 100 mg Q12H PRN PO CONSTIPATION Last administered on 13:17; Admin Dose 100 MG; Start 05/31/17 at 12:30 Zolpidem Tartrate (Ambien) 10 mg QHS PRN PO INSOMNIA Last administered on 22:17; Admin Dose 10 MG; Start 05/31/17 at 12:30 Enoxaparin Sodium (Lovenox) 40 mg DAILY SC Last administered on 06/04/17 08:48 ; Admin Dose 40 MG; Start 06/01/17 at 09:00 Lorazepam (Ativan) 0.5 mg Q6H PRN IV anxiety; Start 05/31/17 at 16:30 Diagnostic Test (Pha) (Accu-Chek) 1 ea 02 XX ; Start 06/02/17 at 02:00 Miscellaneous Information 1 ea NOTE XX ; Start 06/01/17 at 09:00 Glucose (Glutose) 15 gm Q15M PRN PO DECREASED GLUCOSE; Start 06/01/17 at 09:00 Glucose (Glutose) 22.5 gm Q15M PRN PO DECREASED GLUCOSE; Start 06/01/17 at 09: 00 Dextrose (D50w Syringe) 25 ml Q15M PRN IV DECREASED GLUCOSE; Start 06/01/17 at 09:00 Dextrose (D50w Syringe) 50 ml Q15M PRN IV DECREASED GLUCOSE; Start 06/01/17 at 09:00 Glucagon (Glucagen) 1 mg Q15M PRN IM DECREASED GLUCOSE; Start 06/01/17 at 09:00 Glucose 15 gm 15 gm Q15M PRN BUCCAL DECREASED GLUCOSE; Start 06/01/17 at 09:00 Ceftriaxone Sodium (Rocephin) 50 ml @ 100 mls/hr Q24H IVPB Last administered on 06/03/17 17:25; Admin Dose 100 MLS/HR; Start 06/01/17 at 18:00 Famotidine (Pepcid) 20 mg Q12 PO Last administered on 06/04/17 08:43; Admin Dose 20 MG; Start 06/01/17 at 21:00 Aspirin (Halfprin) 81 mg DAILY PO Last administered on 06/04/17 08:43; Admin Dose 81 MG; Start 06/03/17 at 09:00 Docusate Sodium (Colace) 100 mg DAILY PO Last administered on 06/04/17 08:43; Admin Dose 100 MG; Start 06/03/17 at 09:00 Dutasteride (Avodart) 0.5 mg DAILY PO Last administered on 06/04/17 08:43; Admin Dose 0.5 MG; Start 06/03/17 at 09:00 EZETIMIBE (Zetia) 10 mg DAILY PO Last administered on 06/04/17 08:45; Admin Dose 10 MG; Start 06/03/17 at 09:00 Calcium/Vitamin D (Oyster Shell/ Vit-D (500/200)) 1 tab DAILY PO Last administered on 06/04/17 08:43; Admin Dose 1 TAB; Start 06/03/17 at 09:00 Magnesium Oxide (Mag-Ox 400) 400 mg BID PO Last administered on 06/04/17 08:45 ; Admin Dose 400 MG; Start 06/02/17 at 21:00 Memantine (Namenda) 10 mg BID PO Last administered on 06/04/17 08:45; Admin Dose 10 MG; Start 06/02/17 at 21:00 Gabapentin (Neurontin) 300 mg TID PO Last administered on 06/04/17 12:12; Admin Dose 300 MG; Start 06/02/17 at 13:00 Atorvastatin Calcium (Lipitor) 10 mg HS PO Last administered on 06/03/17 22:13 ; Admin Dose 10 MG; Start 06/02/17 at 21:00 Doxazosin Mesylate (Cardura) 2 mg HS PO ; Start 06/04/17 at 21:00 Metoprolol Succinate (Toprol Xl) 25 mg BID PO ; Start 06/04/17 at 21:00 Salmeterol Xinafoate/ Fluticasone (Advair 250/50 Diskus) 1 inh BID INH ; Start 06/04/17 at 21:00 BIANCA ALATORRE NP Jun 04, 2017 16:21
[2017-06-04] MEDS: CEFTRIAXONE 1 GM/50 ML (PMX) 50 ML IVPB SCH (17:51)
[2017-06-04 19:28] VITALS: BP 152/68; RESP 20
[2017-06-04] MEDS: SALMETEROL/FLUTICASONE 250/50 INHA INH SCH (20:51)
[2017-06-04] MEDS: ATORVASTATIN 10 MG TAB PO SCH (20:51)
[2017-06-04] MEDS: METOPROLOL (XL) 25 MG TAB PO SCH (20:57)
[2017-06-04] MEDS ORDERED: DOXAZOSIN 2 MG TAB PO SCH (21:00)
[2017-06-05] MEDS: ALBUTEROL/IPRATROPIUM (NEB) 3 ML AMP HHN SCH ×6 (00:05→20:47)
[2017-06-05 02:00] VITALS: BP 146/67; RESP 18
[2017-06-05] MEDS: ACCU-CHEK XX SCH (02:00)
[2017-06-05 05:49] LABS: BASOPHIL # 0.1 10^3/ul (0.0-0.1); BASOPHILS % 0.8 % (0.0-2.0); EOSINOPHILS # 0.2 10^3/ul (0.0-0.5); HEMATOCRIT 41.6 % (42.0-52.0); HEMOGLOBIN 13.6 g/dl (14.0-18.0); LYMPHOCYTES # 1.6 10^3/ul (0.8-2.9); LYMPHOCYTES % 26.2 % (15.0-51.0); MEAN CORPUSCULAR HEMOGLOBIN 29.8 pg (29.0-33.0); MEAN CORPUSCULAR HGB CONC 32.7 g/dl (32.0-37.0); MEAN CORPUSCULAR VOLUME 91.2 fl (82.0-101.0); MEAN PLATELET VOLUME 9.5 fl (7.4-10.4); MONOCYTE # 1.1 10^3/ul (0.3-0.9); MONOCYTES % 17.7 % (0.0-11.0); PLATELET COUNT 200 10^3/UL (140-415); RED BLOOD COUNT 4.56 10^6/ul (4.70-6.10); RED CELL DISTRIBUTION WIDTH 12.3 % (11.5-14.5); WHITE BLOOD COUNT 6.2 10^3/ul (4.8-10.8)
[2017-06-05 06:16] LABS: CALCIUM 9.8 mg/dl (8.4-10.2); CREATININE 0.85 mg/dl (0.61-1.24); POTASSIUM 4.1 mmol/L (3.5-5.1)
[2017-06-05 08:00] VITALS: BP 130/60; RESP 18
[2017-06-05] MEDS: INSULIN ASPART [NOVOLOG] 3 ML PEN SC SCH ×4 (08:00→21:00)
[2017-06-05] MEDS: EZETIMIBE 10 MG TAB PO SCH (08:21)
[2017-06-05] MEDS: ENOXAPARIN 40 MG/0.4 ML SYG SC SCH (08:21)
[2017-06-05] MEDS: MEMANTINE 10 MG TAB PO SCH ×2 (08:21→21:41)
[2017-06-05] MEDS: MAGNESIUM OXIDE 400 MG TAB PO SCH ×2 (08:21→21:42)
[2017-06-05] MEDS: ASPIRIN (EC) 81 MG TAB PO SCH (08:21)
[2017-06-05] MEDS: DUTASTERIDE 0.5 MG CAP PO SCH (08:21)
[2017-06-05] MEDS: SALMETEROL/FLUTICASONE 250/50 INHA INH SCH ×2 (08:21→21:40)
[2017-06-05] MEDS: DOCUSATE SODIUM 100 MG CAP PO SCH (08:21)
[2017-06-05] MEDS: FAMOTIDINE 20 MG TAB PO SCH (08:21)
[2017-06-05] MEDS: GABAPENTIN 300 MG CAP PO SCH ×3 (08:22→21:42)
[2017-06-05] MEDS: CALCIUM/VITAMIN D (500/200) TAB PO SCH (08:22)
[2017-06-05] MEDS ORDERED: FUROSEMIDE 20 MG TAB PO ONE (11:30)
[2017-06-05] MEDS: CREON (12k-38k-60k) 1 CAP PO SCH ×3 (11:30→17:08)
--- NOTE | 2017-06-05 11:39 | PN ---
Date/Time of Note Date/Time of Note DATE: 06/05/17 TIME: 11:35 Assessment/Plan VTE Prophylaxis VTE Prophylaxis Intervention: heparin Lines/Catheters IV [facility]ter Type [facility]from [facility] Saline Lock Urinary Cath still in place: No Assessment/Plan Problems: (1) Sepsis due to group B Streptococcus Status: Acute Comment: As per infectious disease senior recruitment consultant will continue Rocephin for an additional 9 days from today. Had a splint placed into the order set he has responded nicely to therapy and be a consideration for ECF versus A acute rehabilitation unit (2) Morbid obesity with BMI of 40.0-44.9, adult Status: Chronic Comment: Calorie restriction diet (3) Pre-diabetes Status: Chronic Comment: As above calorie restriction diet. I would not add in therapeutics at this time (4) Diastolic dysfunction Status: Chronic Comment: His response the usage of a cardioselective beta-kala has been excellent. I would absolutely continue this. Please note theoretically you could use atenolol in the setting however atenolol does not have studies in this patient population is more used for slowing down tachydysrhythmias or straight up blood pressure issues (5) Essential hypertension Status: Chronic Comment: Good response. The usage of amlodipine is not in this particular patient's most ideal setting. Combination of beta-kala and alpha-kala are working well. (6) Osteoarthritis Status: Chronic Comment: Noted and stable. Physical therapy to get him up and around Qualifiers: Osteoarthritis location: unspecified site Osteoarthritis type: primary Qualified Code: M19.91 - Primary osteoarthritis, unspecified site (7) Bilateral renal cysts Status: Chronic Comment: Noted. No intervention. Please see notes from our consultants next imaging study in 1 year (8) Fatty liver Status: Chronic Comment: Noted. Weight loss would be ideal (9) At risk for polypharmacy Status: Chronic Comment: I am not entirely clear why this gentleman is on Creon Namenda or Exelon. In addition I am not sure why he is on gabapentin. I am concerned there may be polypharmacy here and it should be reviewed tomorrow Subjective 24 Hr Interval Summary Free Text/Dictation Patient is sitting in bed actively conversing. Constitutional: no complaints (No fevers chills or sweats) Respiratory: no complaints (No shortness of breath no wheezing does report cough denies any history of asthma) Cardiovascular: no complaints Gastrointestinal: no complaints Exam/Review of Systems Vital Signs Vitals Vital Signs Date Time Temp Pulse Resp B/P Pulse Ox O2 Delivery O2 Flow Rate FiO2 06/05/17 09:39 Nasal Cannula 3.0 06/05/17 08:33 80 22 93 21 06/05/17 08:00 98.1 130/60 Intake and Output 06/04/17 06/04/17 06/05/17 15:00 23:00 07:00 Intake Total 950 ml 240 ml Output Total 950 ml Balance 950 ml -710 ml Exam Constitutional: alert, oriented Respiratory: clear to auscultation, normal air movement Cardiovascular: nl pulses, regular rate and rhythm Gastrointestinal: nl liver, spleen, non-tender, soft Extremities: other (Edema is less) Results Result Diagram: 06/05/17 0505 06/05/17 0505 Results 24 hrs Laboratory Tests Test 06/04/17 11:54 06/04/17 17:01 06/04/17 20:54 06/05/17 05:05 Bedside Glucose 112 147 144 White Blood Count 6.2 # Red Blood Count 4.56 L Hemoglobin 13.6 L Hematocrit 41.6 L Mean Corpuscular Volume 91.2 Mean Corpuscular Hemoglobin 29.8 Mean Corpuscular Hemoglobin Concent 32.7 Red Cell Distribution Width 12.3 Platelet Count 200 Mean Platelet Volume 9.5 Neutrophils % 51.0 Lymphocytes % 26.2 Monocytes % 17.7 H Eosinophils % 3.0 Basophils % 0.8 Nucleated Red Blood Cells % 0.0 Neutrophils # (Manual) 3 Lymphocytes # 1.6 Monocytes # 1.1 H Eosinophils # 0.2 Basophils # 0.1 Nucleated Red Blood Cells # 0.0 Sodium Level 144 Potassium Level 4.1 Chloride Level 96 L Carbon Dioxide Level 34 H Anion Gap 18 H Blood Urea Nitrogen 17 Creatinine 0.85 Glucose Level 144 Calcium Level 9.8 Test 06/05/17 08:19 Bedside Glucose 117 Medications Medications Current Medications Ondansetron HCl (Zofran Inj) 4 mg Q6H PRN IV NAUSEA AND/OR VOMITING; Start at 12:30 Acetaminophen (Tylenol Tab) 650 mg Q6H PRN PO PAIN LEVEL 1-3 OR FEVER Last administered on 06/04/17t 04:35; Admin Dose 650 MG; Start 05/31/17 at 12:30 Acetaminophen (Tylenol Supp) 650 mg Q6H PRN DE PAIN LEVEL 1-3 OR FEVER; Start 05/31/17 at 12:30 Morphine Sulfate (morphine) 2 mg Q4H PRN IV SEVERE PAIN LEVEL 7-10 Last administered on 06/01/17 16:18; Admin Dose 2 MG; Start 05/31/17 at 12:30 Docusate Sodium (Colace) 100 mg Q12H PRN PO CONSTIPATION Last administered on 13:17; Admin Dose 100 MG; Start 05/31/17 at 12:30 Zolpidem Tartrate (Ambien) 10 mg QHS PRN PO INSOMNIA Last administered on 22:17; Admin Dose 10 MG; Start 05/31/17 at 12:30 Enoxaparin Sodium (Lovenox) 40 mg DAILY SC Last administered on 06/05/17 08:21 ; Admin Dose 40 MG; Start 06/01/17 at 09:00 Lorazepam (Ativan) 0.5 mg Q6H PRN IV anxiety; Start 05/31/17 at 16:30 Diagnostic Test (Pha) (Accu-Chek) 1 ea 02 XX ; Start 06/02/17 at 02:00 Miscellaneous Information 1 ea NOTE XX ; Start 06/01/17 at 09:00 Glucose (Glutose) 15 gm Q15M PRN PO DECREASED GLUCOSE; Start 06/01/17 at 09:00 Glucose (Glutose) 22.5 gm Q15M PRN PO DECREASED GLUCOSE; Start 06/01/17 at 09: 00 Dextrose (D50w Syringe) 25 ml Q15M PRN IV DECREASED GLUCOSE; Start 06/01/17 at 09:00 Dextrose (D50w Syringe) 50 ml Q15M PRN IV DECREASED GLUCOSE; Start 06/01/17 at 09:00 Glucagon (Glucagen) 1 mg Q15M PRN IM DECREASED GLUCOSE; Start 06/01/17 at 09:00 Glucose 15 gm 15 gm Q15M PRN BUCCAL DECREASED GLUCOSE; Start 06/01/17 at 09:00 Ceftriaxone Sodium (Rocephin) 50 ml @ 100 mls/hr Q24H IVPB Last administered on 06/04/17 17:51; Admin Dose 100 MLS/HR; Start 06/01/17 at 18:00 Famotidine (Pepcid) 20 mg Q12 PO Last administered on 06/05/17 08:21; Admin Dose 20 MG; Start 06/01/17 at 21:00 Aspirin (Halfprin) 81 mg DAILY PO Last administered on 06/05/17 08:21; Admin Dose 81 MG; Start 06/03/17 at 09:00 Docusate Sodium (Colace) 100 mg DAILY PO Last administered on 06/05/17 08:21; Admin Dose 100 MG; Start 06/03/17 at 09:00 Dutasteride (Avodart) 0.5 mg DAILY PO Last administered on 06/05/17 08:21; Admin Dose 0.5 MG; Start 06/03/17 at 09:00 EZETIMIBE (Zetia) 10 mg DAILY PO Last administered on 06/05/17 08:21; Admin Dose 10 MG; Start 06/03/17 at 09:00 Calcium/Vitamin D (Oyster Shell/ Vit-D (500/200)) 1 tab DAILY PO Last administered on 06/05/17 08:22; Admin Dose 1 TAB; Start 06/03/17 at 09:00 Magnesium Oxide (Mag-Ox 400) 400 mg BID PO Last administered on 06/05/17 08:21 ; Admin Dose 400 MG; Start 06/02/17 at 21:00 Memantine (Namenda) 10 mg BID PO Last administered on 06/05/17 08:21; Admin Dose 10 MG; Start 06/02/17 at 21:00 Gabapentin (Neurontin) 300 mg TID PO Last administered on 06/05/17 08:22; Admin Dose 300 MG; Start 06/02/17 at 13:00 Atorvastatin Calcium (Lipitor) 10 mg HS PO Last administered on 06/04/17 20:51 ; Admin Dose 10 MG; Start 06/02/17 at 21:00 Doxazosin Mesylate (Cardura) 2 mg HS PO Last administered on 06/04/17 20:51; Admin Dose 2 MG; Start 06/04/17 at 21:00 Metoprolol Succinate (Toprol Xl) 25 mg BID PO Last administered on 06/04/17 20 :57; Admin Dose 25 MG; Start 06/04/17 at 21:00 Salmeterol Xinafoate/ Fluticasone (Advair 250/50 Diskus) 1 inh BID INH Last administered on 06/05/17t 08:21; Admin Dose 1 INH; Start 06/04/17 at 21:00 TASHA MAS MD Jun 05, 2017 11:39
[2017-06-05] MEDS: METOPROLOL (XL) 25 MG TAB PO SCH ×2 (12:13→21:41)
--- NOTE | 2017-06-05 14:01 | CONS ---
Date/Time of Note Date/Time of Note DATE: 06/05/17 TIME: 13:59 Assessment/Plan Assessment/Plan Chief Complaint/Hosp Course SUBJECTIVE DATA: No acute events overnight. The patient is alert, looks comfortable, no fevers, family at bedside MICROBIOLOGY: Blood culture growing strep agalactiae group B repeat bld cx negative. CT of the abdomen and pelvis on admission revealed no mass, lymphadenopathy or focal acute inflammatory process, small hiatal hernia, hepatomegaly, cardiomegaly approximately 1.2 cm exophytic hyperdense structure in the upper pole left kidney. MRI of the abdomen revealed no renal mass, approximately 1.2 cm exophytic cyst in the upper pole left kidney and 1 cm cyst in the upper pole right kidney with imaging features consistent with hemorrhagic/proteinaceous cyst, hepatomegaly. Chest x-ray revealed no definite focal infiltrates or effusions. Severe cardiomegaly and mild pulmonary vascular congestion. Extremity venous study was essentially negative for DVT. ANTIMICROBIAL: Rocephin=> #6 abx. PHYSICAL EXAMINATION: GENERAL: This is a morbidly obese, well developed, elderly man who is awake, in no distress. HEENT: Head atraumatic, normocephalic. Sclerae anicteric. Buccal mucosa pink. NECK: Obese. CHEST: Symmetrical. Breath sounds with expiratory wheezes and prolonged expiratory phase. HEART: S1, S2. ABDOMEN: Obese, soft, bowel sounds present. EXTREMITIES: Maurice-wrapped BLE ASSESSMENT: 1. Streptococcal bacteremia, likely pulmonary source, 2D ECHO neg vegetations 2. Morbid obesity. 3. Pulmonary vascular congestion with cardiomegaly. 4. Hypertension. PLAN: The patient remains stable, repeat bld cx negative, will treat with Rocephin for total of 2 weeks DW staff Problems: Consultation Date/Type/Reason Admit Date/Time May 31, 2017 at 11:45 Initial Consult Date 06/02/17 Type of Consultation: id Referring Provider: CARMEN TOLEDO Exam/Review of Systems Vital Signs Vitals Vital Signs Date Time Temp Pulse Resp B/P Pulse Ox O2 Delivery O2 Flow Rate FiO2 06/05/17 13:51 80 24 92 Nasal Cannula 2.0 21 06/05/17 08:00 98.1 130/60 Intake and Output 06/04/17 06/04/17 06/05/17 15:00 23:00 07:00 Intake Total 950 ml 240 ml Output Total 950 ml Balance 950 ml -710 ml Results Result Diagram: 06/05/17 0505 06/05/17 0505 Results 24 hrs Laboratory Tests Test 06/04/17 17:01 06/04/17 20:54 06/05/17 05:05 06/05/17 08:19 Bedside Glucose 147 144 117 White Blood Count 6.2 # Red Blood Count 4.56 L Hemoglobin 13.6 L Hematocrit 41.6 L Mean Corpuscular Volume 91.2 Mean Corpuscular Hemoglobin 29.8 Mean Corpuscular Hemoglobin Concent 32.7 Red Cell Distribution Width 12.3 Platelet Count 200 Mean Platelet Volume 9.5 Neutrophils % 51.0 Lymphocytes % 26.2 Monocytes % 17.7 H Eosinophils % 3.0 Basophils % 0.8 Nucleated Red Blood Cells % 0.0 Neutrophils # (Manual) 3 Lymphocytes # 1.6 Monocytes # 1.1 H Eosinophils # 0.2 Basophils # 0.1 Nucleated Red Blood Cells # 0.0 Sodium Level 144 Potassium Level 4.1 Chloride Level 96 L Carbon Dioxide Level 34 H Anion Gap 18 H Blood Urea Nitrogen 17 Creatinine 0.85 Glucose Level 144 Calcium Level 9.8 Test 06/05/17 12:12 Bedside Glucose 120 Medications Medications Current Medications Ondansetron HCl (Zofran Inj) 4 mg Q6H PRN IV NAUSEA AND/OR VOMITING; Start at 12:30 Acetaminophen (Tylenol Tab) 650 mg Q6H PRN PO PAIN LEVEL 1-3 OR FEVER Last administered on 06/04/17 04:35; Admin Dose 650 MG; Start 05/31/17 at 12:30 Acetaminophen (Tylenol Supp) 650 mg Q6H PRN VA PAIN LEVEL 1-3 OR FEVER; Start 05/31/17 at 12:30 Morphine Sulfate (morphine) 2 mg Q4H PRN IV SEVERE PAIN LEVEL 7-10 Last administered on 06/01/17 16:18; Admin Dose 2 MG; Start 05/31/17 at 12:30 Docusate Sodium (Colace) 100 mg Q12H PRN PO CONSTIPATION Last administered on 13:17; Admin Dose 100 MG; Start 05/31/17 at 12:30 Zolpidem Tartrate (Ambien) 10 mg QHS PRN PO INSOMNIA Last administered on 22:17; Admin Dose 10 MG; Start 05/31/17 at 12:30 Enoxaparin Sodium (Lovenox) 40 mg DAILY SC Last administered on 06/05/17 08:21 ; Admin Dose 40 MG; Start 06/01/17 at 09:00 Lorazepam (Ativan) 0.5 mg Q6H PRN IV anxiety; Start 05/31/17 at 16:30 Diagnostic Test (Pha) (Accu-Chek) 1 ea 02 XX ; Start 06/02/17 at 02:00 Miscellaneous Information 1 ea NOTE XX ; Start 06/01/17 at 09:00 Glucose (Glutose) 15 gm Q15M PRN PO DECREASED GLUCOSE; Start 06/01/17 at 09:00 Glucose (Glutose) 22.5 gm Q15M PRN PO DECREASED GLUCOSE; Start 06/01/17 at 09: 00 Dextrose (D50w Syringe) 25 ml Q15M PRN IV DECREASED GLUCOSE; Start 06/01/17 at 09:00 Dextrose (D50w Syringe) 50 ml Q15M PRN IV DECREASED GLUCOSE; Start 06/01/17 at 09:00 Glucagon (Glucagen) 1 mg Q15M PRN IM DECREASED GLUCOSE; Start 06/01/17 at 09:00 Glucose 15 gm 15 gm Q15M PRN BUCCAL DECREASED GLUCOSE; Start 06/01/17 at 09:00 Ceftriaxone Sodium (Rocephin) 50 ml @ 100 mls/hr Q24H IVPB Last administered on 06/04/17 17:51; Admin Dose 100 MLS/HR; Start 06/01/17 at 18:00; Stop at 17:59 Aspirin (Halfprin) 81 mg DAILY PO Last administered on 06/05/17 08:21; Admin Dose 81 MG; Start 06/03/17 at 09:00 Docusate Sodium (Colace) 100 mg DAILY PO Last administered on 06/05/17 08:21; Admin Dose 100 MG; Start 06/03/17 at 09:00 Dutasteride (Avodart) 0.5 mg DAILY PO Last administered on 06/05/17 08:21; Admin Dose 0.5 MG; Start 06/03/17 at 09:00 Calcium/Vitamin D (Oyster Shell/ Vit-D (500/200)) 1 tab DAILY PO Last administered on 06/05/17 08:22; Admin Dose 1 TAB; Start 06/03/17 at 09:00 Magnesium Oxide (Mag-Ox 400) 400 mg BID PO Last administered on 06/05/17 08:21 ; Admin Dose 400 MG; Start 06/02/17 at 21:00 Memantine (Namenda) 10 mg BID PO Last administered on 06/05/17 08:21; Admin Dose 10 MG; Start 06/02/17 at 21:00 Gabapentin (Neurontin) 300 mg TID PO Last administered on 06/05/17 08:22; Admin Dose 300 MG; Start 06/02/17 at 13:00 Metoprolol Succinate (Toprol Xl) 25 mg BID PO Last administered on 06/05/17 12 :13; Admin Dose 25 MG; Start 06/04/17 at 21:00 Salmeterol Xinafoate/ Fluticasone (Advair 250/50 Diskus) 1 inh BID INH Last administered on 06/05/17 08:21; Admin Dose 1 INH; Start 06/04/17 at 21:00 Atorvastatin Calcium (Lipitor) 40 mg HS PO ; Start 06/05/17 at 21:00 Doxazosin Mesylate (Cardura) 4 mg HS PO ; Start 06/05/17 at 21:00 Famotidine (Pepcid) 20 mg QHS PO ; Start 06/05/17 at 21:00 BIANCA ALATORRE NP Jun 05, 2017 14:01
--- NOTE | 2017-06-05 14:29 | CONS ---
Date/Time of Note Date/Time of Note DATE: 06/05/17 TIME: 14:24 Assessment/Plan Assessment/Plan Additional Assessment/Plan 1. Bilateral kidney mass vs cyst- MRI abdomen + pelvis showed 1.2 cm exophytic cyst in the upper pole left kidney and 1 cm cyst in the upper pole right kidney with imaging features consistent with hemorrhagic/proteinaceous cyst. - pt has normal renal function, no proteinuria, no hematuria 2. sepsis with GBS bacteremia, unclear etiology at this time- ID follows 3. Hypertension 4. Fatty liver 5. Bilateral LE chronic lymphedema Plan : -MRI abdomen + pelvis showed 1.2 cm exophytic cyst in the upper pole left kidney and 1 cm cyst in the upper pole right kidney with imaging features consistent with hemorrhagic/proteinaceous cyst. - pt has normal renal function, no proteinuria, no hematuria- his infection source would be infected cysts. Cysts are not ruptured so no evidence of hematuria. -Need IV abx for sepsis, Fluoroquinolones would be better choice for infected cyst -if pt continue to have recurrent bacteremia and if rising BUN/Cr then consider Urology consult - On Rocephin -Monitor Electrolytes and replace as needed -Renally dose all abx will need follow up Imaging( CT vs MRI ) fo tollow up on size of cyst in 1 year . Joshua Palomares Consultation Date/Type/Reason Admit Date/Time May 31, 2017 at 11:45 Initial Consult Date 06/02/17 Type of Consultation: id Referring Provider: CARMEN TOLEDO 24 HR Interval Summary Free Text/Dictation nad,c/o shortness of breath on exertion some times, family at bed side, all Qs answered. dw staff Constitutional: no complaints Detailed Summary Respiratory: shortness of breath Cardiovascular: no complaints Gastrointestinal: no complaints Genitourinary: no complaints Musculoskeletal: other (generelized weakness) Exam/Review of Systems Vital Signs Vitals Vital Signs Date Time Temp Pulse Resp B/P Pulse Ox O2 Delivery O2 Flow Rate FiO2 06/05/17 13:51 80 24 92 Nasal Cannula 2.0 21 06/05/17 08:00 98.1 130/60 Intake and Output 06/04/17 06/04/17 06/05/17 15:00 23:00 07:00 Intake Total 950 ml 240 ml Output Total 950 ml Balance 950 ml -710 ml Exam Constitutional: alert, obese, oriented Respiratory: diminished breath sounds Cardiovascular: nl pulses, regular rate and rhythm Gastrointestinal: non-tender, soft Musculoskeletal: nl extremities to inspection Extremities: normal pulses Neurological: nl mental status Results Result Diagram: 06/05/17 0505 06/05/17 0505 Results 24 hrs Laboratory Tests Test 06/04/17 17:01 06/04/17 20:54 06/05/17 05:05 06/05/17 08:19 Bedside Glucose 147 144 117 White Blood Count 6.2 # Red Blood Count 4.56 L Hemoglobin 13.6 L Hematocrit 41.6 L Mean Corpuscular Volume 91.2 Mean Corpuscular Hemoglobin 29.8 Mean Corpuscular Hemoglobin Concent 32.7 Red Cell Distribution Width 12.3 Platelet Count 200 Mean Platelet Volume 9.5 Neutrophils % 51.0 Lymphocytes % 26.2 Monocytes % 17.7 H Eosinophils % 3.0 Basophils % 0.8 Nucleated Red Blood Cells % 0.0 Neutrophils # (Manual) 3 Lymphocytes # 1.6 Monocytes # 1.1 H Eosinophils # 0.2 Basophils # 0.1 Nucleated Red Blood Cells # 0.0 Sodium Level 144 Potassium Level 4.1 Chloride Level 96 L Carbon Dioxide Level 34 H Anion Gap 18 H Blood Urea Nitrogen 17 Creatinine 0.85 Glucose Level 144 Calcium Level 9.8 Test 06/05/17 12:12 Bedside Glucose 120 Medications Medications Current Medications Ondansetron HCl (Zofran Inj) 4 mg Q6H PRN IV NAUSEA AND/OR VOMITING; Start at 12:30 Acetaminophen (Tylenol Tab) 650 mg Q6H PRN PO PAIN LEVEL 1-3 OR FEVER Last administered on 06/04/17 04:35; Admin Dose 650 MG; Start 05/31/17 at 12:30 Acetaminophen (Tylenol Supp) 650 mg Q6H PRN [place] PAIN LEVEL 1-3 OR FEVER; Start 05/31/17 at 12:30 Morphine Sulfate (morphine) 2 mg Q4H PRN IV SEVERE PAIN LEVEL 7-10 Last administered on 06/01/17 16:18; Admin Dose 2 MG; Start 05/31/17 at 12:30 Docusate Sodium (Colace) 100 mg Q12H PRN PO CONSTIPATION Last administered on 13:17; Admin Dose 100 MG; Start 05/31/17 at 12:30 Zolpidem Tartrate (Ambien) 10 mg QHS PRN PO INSOMNIA Last administered on 22:17; Admin Dose 10 MG; Start 05/31/17 at 12:30 Enoxaparin Sodium (Lovenox) 40 mg DAILY SC Last administered on 06/05/17 08:21 ; Admin Dose 40 MG; Start 06/01/17 at 09:00 Lorazepam (Ativan) 0.5 mg Q6H PRN IV anxiety; Start 05/31/17 at 16:30 Diagnostic Test (Pha) (Accu-Chek) 1 ea 02 XX ; Start 06/02/17 at 02:00 Miscellaneous Information 1 ea NOTE XX ; Start 06/01/17 at 09:00 Glucose (Glutose) 15 gm Q15M PRN PO DECREASED GLUCOSE; Start 06/01/17 at 09:00 Glucose (Glutose) 22.5 gm Q15M PRN PO DECREASED GLUCOSE; Start 06/01/17 at 09: 00 Dextrose (D50w Syringe) 25 ml Q15M PRN IV DECREASED GLUCOSE; Start 06/01/17 at 09:00 Dextrose (D50w Syringe) 50 ml Q15M PRN IV DECREASED GLUCOSE; Start 06/01/17 at 09:00 Glucagon (Glucagen) 1 mg Q15M PRN IM DECREASED GLUCOSE; Start 06/01/17 at 09:00 Glucose 15 gm 15 gm Q15M PRN BUCCAL DECREASED GLUCOSE; Start 06/01/17 at 09:00 Ceftriaxone Sodium (Rocephin) 50 ml @ 100 mls/hr Q24H IVPB Last administered on 06/04/17 17:51; Admin Dose 100 MLS/HR; Start 06/01/17 at 18:00; Stop at 17:59 Aspirin (Halfprin) 81 mg DAILY PO Last administered on 06/05/17 08:21; Admin Dose 81 MG; Start 06/03/17 at 09:00 Docusate Sodium (Colace) 100 mg DAILY PO Last administered on 06/05/17 08:21; Admin Dose 100 MG; Start 06/03/17 at 09:00 Dutasteride (Avodart) 0.5 mg DAILY PO Last administered on 06/05/17 08:21; Admin Dose 0.5 MG; Start 06/03/17 at 09:00 Calcium/Vitamin D (Oyster Shell/ Vit-D (500/200)) 1 tab DAILY PO Last administered on 06/05/17 08:22; Admin Dose 1 TAB; Start 06/03/17 at 09:00 Magnesium Oxide (Mag-Ox 400) 400 mg BID PO Last administered on 06/05/17 08:21 ; Admin Dose 400 MG; Start 06/02/17 at 21:00 Memantine (Namenda) 10 mg BID PO Last administered on 06/05/17 08:21; Admin Dose 10 MG; Start 06/02/17 at 21:00 Gabapentin (Neurontin) 300 mg TID PO Last administered on 06/05/17 08:22; Admin Dose 300 MG; Start 06/02/17 at 13:00 Metoprolol Succinate (Toprol Xl) 25 mg BID PO Last administered on 06/05/17 12 :13; Admin Dose 25 MG; Start 06/04/17 at 21:00 Salmeterol Xinafoate/ Fluticasone (Advair 250/50 Diskus) 1 inh BID INH Last administered on 06/05/17 08:21; Admin Dose 1 INH; Start 06/04/17 at 21:00 Atorvastatin Calcium (Lipitor) 40 mg HS PO ; Start 06/05/17 at 21:00 Doxazosin Mesylate (Cardura) 4 mg HS PO ; Start 06/05/17 at 21:00 Famotidine (Pepcid) 20 mg QHS PO ; Start 06/05/17 at 21:00 JORGE REID Jun 05, 2017 14:28
[2017-06-05 14:42] VITALS: BP 136/65; RESP 20
[2017-06-05] MEDS: CEFTRIAXONE 1 GM/50 ML (PMX) 50 ML IVPB SCH (17:08)
[2017-06-05 20:38] VITALS: BP 97/47; RESP 18
[2017-06-05] MEDS ORDERED: ATORVASTATIN 40 MG TAB PO SCH (21:00)
[2017-06-05] MEDS ORDERED: FAMOTIDINE 20 MG TAB PO SCH (21:00)
[2017-06-05] MEDS ORDERED: DOXAZOSIN 4 MG TAB PO SCH (21:00)
[2017-06-05 21:01] VITALS: BP 153/67; RESP 19
[2017-06-06] MEDS: ALBUTEROL/IPRATROPIUM (NEB) 3 ML AMP HHN SCH ×5 (00:12→16:35)
[2017-06-06] MEDS: ACCU-CHEK XX SCH (02:00)
[2017-06-06 03:10] VITALS: BP 124/59; RESP 22
[2017-06-06] MEDS: INSULIN ASPART [NOVOLOG] 3 ML PEN SC SCH ×3 (08:00→18:05)
[2017-06-06] MEDS: CALCIUM/VITAMIN D (500/200) TAB PO SCH (08:51)
[2017-06-06] MEDS: DUTASTERIDE 0.5 MG CAP PO SCH (08:51)
[2017-06-06] MEDS: ASPIRIN (EC) 81 MG TAB PO SCH (08:51)
[2017-06-06] MEDS: CREON (12k-38k-60k) 1 CAP PO SCH ×3 (08:51→18:15)
[2017-06-06] MEDS: MEMANTINE 10 MG TAB PO SCH (08:52)
[2017-06-06] MEDS: GABAPENTIN 300 MG CAP PO SCH ×2 (08:52→12:13)
[2017-06-06] MEDS: SALMETEROL/FLUTICASONE 250/50 INHA INH SCH (08:52)
[2017-06-06] MEDS: DOCUSATE SODIUM 100 MG CAP PO SCH (08:52)
[2017-06-06] MEDS: MAGNESIUM OXIDE 400 MG TAB PO SCH (08:52)
[2017-06-06] MEDS: METOPROLOL (XL) 25 MG TAB PO SCH (08:55)
[2017-06-06] MEDS: ENOXAPARIN 40 MG/0.4 ML SYG SC SCH (08:58)
--- NOTE | 2017-06-06 10:30 | PDOCDIS ---
Discharge Instructions CONDITION Patient Condition: Stable HOME CARE INSTRUCTIONS: Special Diet: carb controlled diet FOLLOW UP/APPOINTMENTS Follow-up Plan 1.Follow up with primary care physician in 1 week If you don't have one please let someone know, we can give you resources that may help you pick one. You may also call your insurance company to assign one to you. Review your medication list with your nurse before leaving and if you need new prescriptions please let your nurse know. I may have made changes to your home medications or given you new prescriptions, please let your primary doctor know as well. Stay compliant with your medications and report any side effects to your PCP or pharmacist. Return to the ER if you have any concerns and cannot reach your doctors or call your insurance company, they usually have a nurse that can help you. 2. Call 911 or go to the nearest emergency room if experiencing loss of consciousness, dizziness, chest pain, shortness of breath, vomiting/abdominal pain, speech difficulties, motor weakness or any unusual symptoms. OTHER ORDERS: Other Orders: Home health Nurse for IV abx DELMI GOODMAN NP Jun 06, 2017 10:30
[2017-06-06] MEDS ORDERED: DOXA4TAB2 PO (10:37)
[2017-06-06] MEDS ORDERED: METO25TA7 PO (10:37)
[2017-06-06] MEDS ORDERED: ADV25050 INH (10:37)
[2017-06-06] MEDS ORDERED: CEFT1FRO2 IV (10:37)
[2017-06-06] MEDS ORDERED: LIDOCAINE 1% (MPF) 5 ML VIAL SC ONE ×2 (11:00)
[2017-06-06 11:05] VITALS: BP 109/78; RESP 20
[2017-06-06] MEDS ORDERED: SOD CHLORIDE 0.9% 100 ML ONE (14:13)
--- NOTE | 2017-06-06 14:55 | DS ---
Date/Time of Note Date/Time of Note DATE: 06/06/17 TIME: 14:48 Discharge Summary Admission/Discharge Info Admit Date/Time May 31, 2017 at 11:45 Discharge Date/Time Discharge Diagnosis 1. Status post sepsis with GBS bacteremia and lactic acidosis possibly from upper respiratory infection. 2. Chronic bilateral lower extremities lymphedema . Negative for DVT 3. Bilateral hemorrhagic/proteinaceous Renal cyst. Needs follow-up renal protocol MRI in 1 year 4. Hepatic steatosis. LFTs normal. 5. Hypertension. 6 Arthritis. 7. Insomnia 8. Hyperthyroidism. Recommend repeat labs as outpatient. 9. Morbid obesity Patient Condition: Stable Procedures 06/02/2017. MRI renal protocol. MPRESSION: 1. No renal mass. 2. Approximately 1.2 cm exophytic cyst in the upper pole left kidney and 1 cm cyst in the upper pole right kidney with imaging features consistent with hemorrhagic/proteinaceous cyst. 3. Hepatomegaly with fatty infiltration. Hospital Course This is a morbidly obese male with a past medical history of essential hypertension, chronic lymphedema, arthritis, insomnia, appendectomy, who was brought to the emergency room with fever, chills and generalized body aches and abdominal pain associated with malaise. Patient also had productive cough with shortness of breath. On admission, patient had elevated WBC 13,000 with lactic acid 3.4 with a temperature of 102. Chest x-ray, CT abdomen and urine studies were negative for any acute infection. However, on CT, There was hepatic steatosis with questionable proteinaceous or hemorrhagic cysts on the upper poles of the bilateral kidneys. Patient was treated with sepsis protocol and was admitted for further evaluation. Patient was continued on IV fluids, IV broad-spectrum antibiotics. He was evaluated by infectious disease specialist and was continued on appropriate antibiotic regimen. 2 sets of blood cultures positive for group B strep Streptococcal bacteremia, likely pulmonary source. There was no vegetation on 2D echocardiogram. There was no other sources of infection. Blood pressure medications were adjusted as patient also had diastolic dysfunction and a cardioselective beta-kala was recommended. For his chronic lymphedema, patient was recommended to wear Maurice wrap or ROWDY hose. There was no DVT. Patient also had undergone MRI renal protocol to reevaluate on CT findings and revealed bilateral renal cyst without any signs of rupture. He was also evaluated by bilingual medical receptionist and recommended follow-up imaging study in 1 year. Patient was started on diet. He did not have any further fever. Sepsis resolved. Patient is feeling back to his baseline. He also noted A1c 6.3 with prediabetes. Patient was counseled on calorie restriction diet and defer for outpatient follow-up. Thyroid function studies were suggestive of possible hyperthyroid state and recommended for outpatient repeat labs and follow-up. Overall, patient has improved significantly. There was no further signs of any infection. Sepsis completely resolved. Patient feels back to his baseline. As per ID recommendation, he needs total 2 weeks of IV antibiotics which is additional 8 days. Patient had PICC line inserted and home health nurse was recommended for continuation of antibiotics at home. Disposition: Patient will be discharged home with home health service for continuation of IV antibiotics. Patient was instructed to follow-up with primary care provider. Patient was also instructed on weight reduction. Patient and family verbalized discharge instructions. Approximately 60 minutes was spent in coordinating the discharge on this patient. Case discussed with [place] Meds Active Scripts Ceftriaxone Na/Dextrose,Iso (Ceftriaxone 1 gm Piggyback) 1 Gm/50 Ml Froz.piggy, 1 GM IV DAILY, #8 DOSE Prov:GOODMAN,DELMI V. RECRUITING SCHEDULER 06/06/17 Metoprolol Succinate* (Toprol XL*) 25 Mg Tab.sr.24h, 25 MG PO BID, #60 TAB Prov:GOODMAN,DELMI V. RECRUITING SCHEDULER 06/06/17 Doxazosin Mesylate* (Cardura*) 4 Mg Tablet, 4 MG PO HS, #30 TAB Prov:GOODMANDELMI V. RECRUITING SCHEDULER 06/06/17 Salmeterol Xinaf/Fluticasone* (Advair*) 250-50 Diskus Inhaler, 1 INH INH BID, # 1 INHALER Prov:GOODMANJANELLA V. RECRUITING SCHEDULER 06/06/17 Reported Medications Rosuvastatin Calcium (Rosuvastatin Calcium) 5 Mg Tablet, 5 MG PO, TAB 06/02/17 Tiotropium Hallam* (Spiriva*) 18 Mcg Cap.w.dev, 1 CAP INHALATION DAILY, #30 CAP 06/02/17 Magnesium Oxide (Mag Oxide) 400 Mg Capsule, 400 MG PO BID, CAP 06/02/17 Icosapent Ethyl (VASCEPA) 1 Gm Capsule, 1 GM PO, CAP 06/02/17 Qadete-Gdourjox-Jlznlqv* (Daniel ESCAMILLA* 36,000) 36,000 L-114,000-180,000 Unit Capsule.dr, 1 CAP PO WITH MEALS, CAP 06/02/17 Docusate Sodium* (Dok*) 100 Mg Tablet, 100 MG PO DAILY, #30 CAP 06/02/17 Dutasteride* (Avodart*) 0.5 Mg Capsule, 0.5 MG PO DAILY, CAP 06/02/17 Rivastigmine* Patch (Exelon* Patch) 9.5 Mg/24 Hr Patch.td24, 1 PATCH TD DAILY, PATCH 06/02/17 Gabapentin (GABAPENTIN) 300 Mg/6 Ml Solution, 100 MG PO 06/02/17 Memantine* (Namenda* XR) 28 Mg Cap.spr.24, 28 MG PO DAILY, #30 TAB 06/02/17 Aspirin* (Aspirin* EC) 81 Mg Tablet.dr, 81 MG PO DAILY, TAB 06/02/17 Ezetimibe* (Zetia*) 10 Mg Tablet, 10 MG PO DAILY, TAB 06/02/17 Calcium Carbonate/Vitamin D3 (OYSTER SHELL CALCIUM TABLET) 1 Each Tablet, 500 EACH PO DAILY, TAB 06/02/17 Temazepam* (Temazepam*) 15 Mg Capsule, 15 MG PO HS MAY REPEAT X 1 Y for INSOMNIA , CAP 05/31/17 Acetaminophen* (Acetaminophen*) 500 MG Extra Strength Tablet, 2 MG PO Q6 Y for PAIN AND OR ELEVATED TEMP, TAB 05/31/17 Zolpidem Tartrate* (Ambien*) 10 Mg Tablet, 10 MG PO QHS Y for INSOMNIA, TAB 05/31/17 Discontinued Reported Medications Fluticasone Propionate* (Fluticasone Propionate* Nasal) 50 Mcg/Bard - 16 Gm Bard.susp, 1 SPRAY NASAL DAILY, #1 BOTTLE TO EACH NOSTRIL 06/02/17 Amlodipine Besylate* (Amlodipine Besylate*) 2.5 Mg Tablet, 5 MG PO DAILY, #30 TAB 06/02/17 Ibuprofen* (Ibuprofen*) 200 Mg Capsule, 200 MG PO Q8 Y for PAIN, CAP 05/31/17 Follow-up Plan HOME CARE INSTRUCTIONS: Special Diet: carb controlled diet FOLLOW UP/APPOINTMENTS Follow-up Plan 1.Follow up with primary care physician in 1 week If you don't have one please let someone know, we can give you resources that may help you pick one. You may also call your insurance company to assign one to you. Review your medication list with your nurse before leaving and if you need new prescriptions please let your nurse know. I may have made changes to your home medications or given you new prescriptions, please let your primary doctor know as well. Stay compliant with your medications and report any side effects to your PCP or pharmacist. Return to the ER if you have any concerns and cannot reach your doctors or call your insurance company, they usually have a nurse that can help you. 2. Call 911 or go to the nearest emergency room if experiencing loss of consciousness, dizziness, chest pain, shortness of breath, vomiting/abdominal pain, speech difficulties, motor weakness or any unusual symptoms. OTHER ORDERS: Other Orders: Home health Nurse for IV abx Primary Care Provider Not On Staff Doctor Pending Labs Laboratory Tests Test 06/05/17 17:07 06/05/17 21:47 06/06/17 08:50 06/06/17 12:13 Bedside Glucose 139mg/dL (70-220) 146mg/dL (70-220) 136mg/dL (70-220) 312mg/dL (70-220) DELMI GOODMAN NP Jun 06, 2017 14:55 Test 06/05/17 17:07 06/05/17 21:47 06/06/17 08:50 06/06/17 12:13 Bedside Glucose 139mg/dL (70-220) 146mg/dL (70-220) 136mg/dL (70-220) 312mg/dL (70-220) DELMI GOODMAN NP Jun 06, 2017 14:55
--- NOTE | 2017-06-06 15:02 | CONS ---
Date/Time of Note Date/Time of Note DATE: 06/06/17 TIME: 15:01 Assessment/Plan Assessment/Plan Chief Complaint/Hosp Course SUBJECTIVE DATA: No acute events overnight. The patient is alert, looks comfortable, no fevers Temperature 97.9 pulse 90 respirations 20 blood pressure 109/78 saturation 94% on nasal cannula MICROBIOLOGY: Blood culture growing strep agalactiae group B repeat bld cx negative. CT of the abdomen and pelvis on admission revealed no mass, lymphadenopathy or focal acute inflammatory process, small hiatal hernia, hepatomegaly, cardiomegaly approximately 1.2 cm exophytic hyperdense structure in the upper pole left kidney. MRI of the abdomen revealed no renal mass, approximately 1.2 cm exophytic cyst in the upper pole left kidney and 1 cm cyst in the upper pole right kidney with imaging features consistent with hemorrhagic/proteinaceous cyst, hepatomegaly. Chest x-ray revealed no definite focal infiltrates or effusions. Severe cardiomegaly and mild pulmonary vascular congestion. Extremity venous study was essentially negative for DVT. ANTIMICROBIAL: Rocephin=> #7 PHYSICAL EXAMINATION: GENERAL: This is a morbidly obese, well developed, elderly man who is awake, in no distress. HEENT: Head atraumatic, normocephalic. Sclerae anicteric. Buccal mucosa pink. NECK: Obese. CHEST: Symmetrical. Breath sounds with expiratory wheezes and prolonged expiratory phase. HEART: S1, S2. ABDOMEN: Obese, soft, bowel sounds present. EXTREMITIES: Maurice-wrapped BLE ASSESSMENT: 1. Streptococcal bacteremia, likely pulmonary source, 2D ECHO neg vegetations 2. Morbid obesity. 3. Pulmonary vascular congestion with cardiomegaly. 4. Hypertension. PLAN: The patient remains stable, repeat bld cx negative, recommend 7 more days abx DW staff Problems: Consultation Date/Type/Reason Admit Date/Time May 31, 2017 at 11:45 Initial Consult Date 06/02/17 Type of Consultation: id Referring Provider: CARMEN TOLEDO Exam/Review of Systems Vital Signs Vitals Vital Signs Date Time Temp Pulse Resp B/P Pulse Ox O2 Delivery O2 Flow Rate FiO2 06/06/17 12:56 91 18 93 21 06/06/17 11:05 97.9 109/78 06/06/17 04:42 Nasal Cannula 2.0 Intake and Output 06/05/17 06/05/17 06/06/17 15:00 23:00 07:00 Intake Total 1250 ml 550 ml Output Total 975 ml Balance 275 ml 550 ml Results Result Diagram: 06/05/17 0505 06/05/17 0505 Results 24 hrs Laboratory Tests Test 06/05/17 17:07 06/05/17 21:47 06/06/17 08:50 06/06/17 12:13 Bedside Glucose 139 146 136 312 H Medications Medications Current Medications Ondansetron HCl (Zofran Inj) 4 mg Q6H PRN IV NAUSEA AND/OR VOMITING; Start at 12:30 Acetaminophen (Tylenol Tab) 650 mg Q6H PRN PO PAIN LEVEL 1-3 OR FEVER Last administered on 06/04/17 04:35; Admin Dose 650 MG; Start 05/31/17 at 12:30 Acetaminophen (Tylenol Supp) 650 mg Q6H PRN MD PAIN LEVEL 1-3 OR FEVER; Start 05/31/17 at 12:30 Morphine Sulfate (morphine) 2 mg Q4H PRN IV SEVERE PAIN LEVEL 7-10 Last administered on 06/01/17 16:18; Admin Dose 2 MG; Start 05/31/17 at 12:30 Docusate Sodium (Colace) 100 mg Q12H PRN PO CONSTIPATION Last administered on 13:17; Admin Dose 100 MG; Start 05/31/17 at 12:30 Zolpidem Tartrate (Ambien) 10 mg QHS PRN PO INSOMNIA Last administered on 22:17; Admin Dose 10 MG; Start 05/31/17 at 12:30 Enoxaparin Sodium (Lovenox) 40 mg DAILY SC Last administered on 06/06/17 08:58 ; Admin Dose 40 MG; Start 06/01/17 at 09:00 Lorazepam (Ativan) 0.5 mg Q6H PRN IV anxiety; Start 05/31/17 at 16:30 Diagnostic Test (Pha) (Accu-Chek) 1 ea 02 XX ; Start 06/02/17 at 02:00 Miscellaneous Information 1 ea NOTE XX ; Start 06/01/17 at 09:00 Glucose (Glutose) 15 gm Q15M PRN PO DECREASED GLUCOSE; Start 06/01/17 at 09:00 Glucose (Glutose) 22.5 gm Q15M PRN PO DECREASED GLUCOSE; Start 06/01/17 at 09: 00 Dextrose (D50w Syringe) 25 ml Q15M PRN IV DECREASED GLUCOSE; Start 06/01/17 at 09:00 Dextrose (D50w Syringe) 50 ml Q15M PRN IV DECREASED GLUCOSE; Start 06/01/17 at 09:00 Glucagon (Glucagen) 1 mg Q15M PRN IM DECREASED GLUCOSE; Start 06/01/17 at 09:00 Glucose 15 gm 15 gm Q15M PRN BUCCAL DECREASED GLUCOSE; Start 06/01/17 at 09:00 Ceftriaxone Sodium (Rocephin) 50 ml @ 100 mls/hr Q24H IVPB Last administered on 06/05/17 17:08; Admin Dose 100 MLS/HR; Start 06/01/17 at 18:00; Stop at 17:59 Aspirin (Halfprin) 81 mg DAILY PO Last administered on 06/06/17 08:51; Admin Dose 81 MG; Start 06/03/17 at 09:00 Docusate Sodium (Colace) 100 mg DAILY PO Last administered on 06/06/17 08:52; Admin Dose 100 MG; Start 06/03/17 at 09:00 Dutasteride (Avodart) 0.5 mg DAILY PO Last administered on 06/06/17 08:51; Admin Dose 0.5 MG; Start 06/03/17 at 09:00 Calcium/Vitamin D (Oyster Shell/ Vit-D (500/200)) 1 tab DAILY PO Last administered on 06/06/17 08:51; Admin Dose 1 TAB; Start 06/03/17 at 09:00 Magnesium Oxide (Mag-Ox 400) 400 mg BID PO Last administered on 06/06/17 08:52 ; Admin Dose 400 MG; Start 06/02/17 at 21:00 Memantine (Namenda) 10 mg BID PO Last administered on 06/06/17 08:52; Admin Dose 10 MG; Start 06/02/17 at 21:00 Gabapentin (Neurontin) 300 mg TID PO Last administered on 06/06/17 12:13; Admin Dose 300 MG; Start 06/02/17 at 13:00 Metoprolol Succinate (Toprol Xl) 25 mg BID PO Last administered on 8/21/17at 08 :55; Admin Dose 25 MG; Start 06/04/17 at 21:00 Salmeterol Xinafoate/ Fluticasone (Advair 250/50 Diskus) 1 inh BID INH Last administered on 06/06/17 08:52; Admin Dose 1 INH; Start 06/04/17 at 21:00 Atorvastatin Calcium (Lipitor) 40 mg HS PO Last administered on 06/05/17 21:42 ; Admin Dose 40 MG; Start 06/05/17 at 21:00 Doxazosin Mesylate (Cardura) 4 mg HS PO Last administered on 06/05/17 21:42; Admin Dose 4 MG; Start 06/05/17 at 21:00 Famotidine (Pepcid) 20 mg QHS PO Last administered on 06/05/17 21:41; Admin Dose 20 MG; Start 06/05/17 at 21:00 IV Flush (NS 10 ml) 10 ml PRN PRN IV IV PROTOCOL; Start 06/06/17 at 14:00 BIANCA ALATORRE NP Jun 06, 2017 15:02
--- NOTE | 2017-06-06 15:49 | RADRPT ---
PROCEDURE: US guidance for PICC line CLINICAL INDICATION: PICC line placement TECHNIQUE: Multiple real-time images were acquired of the patient's arm utilizing a high resolutio n transducer. This was performed by the PICC line nurse for venous access. COMPARISON: None FINDINGS: Ultrasound guidance for PICC line placement. IMPRESSION: Ultrasound guidance for PICC line placement. RPTAT: AA .Donald Junior MD, MD Date Time Electronically viewed and signed by .Donald Junior MD, on 06/06/2017 15:48 .S/
--- NOTE | 2017-06-06 16:03 | RADRPT ---
PROCEDURE: XR Chest. CLINICAL INDICATION: Check PICC line position. TECHNIQUE: Single frontal view. 06/06/2017. 1355 hours. COMPARISON: 06/06 7. 1854 hours. FINDINGS: There is a left arm PICC line with the tip in the cavoatrial junction region. There is mild pulmona ry edema, unchanged. The heart is enlarged. There is no pleural effusion. There is no pneumothorax. IMPRESSION: 1. Left arm PICC line tip in satisfactory position. 2. Pulmonary edema and cardiomegaly. RPTAT: QQ .Deric Rodriguez MD, MD Date Time Electronically viewed and signed by .Deric Rodriguez MD, MD on 06/06/2017 16:02 .R/
--- NOTE | 2017-06-06 16:04 | RADRPT ---
PROCEDURE: XR Chest. CLINICAL INDICATION: Check PICC line position. TECHNIQUE: Single frontal view. COMPARISON: 06/03/2017. FINDINGS: There is a left arm PICC line with the tip in the left subclavian vein, coiled. Mild pulmonary rebeca a is unchanged. The heart is enlarged. There is calcification in the aorta consistent with atherosclerosis. There is no pleural effusion. There is no pneumothorax. IMPRESSION: 1. Left arm PICC line tip in unsatisfactory position. PICC line nurse is aware. 2. No other change from 06/03/2017. RPTAT: QQ .Deric Rodriguez MD, MD Date Time Electronically viewed and signed by .Deric Rodriguez MD, on 06/06/2017 16:03 .R/
[2017-06-06] MEDS: CEFTRIAXONE 1 GM/50 ML (PMX) 50 ML IVPB SCH (17:08)
[2017-06-06 17:15] VITALS: BP 134/58; RESP 20
--- NOTE | 2017-06-06 18:36 | CONS ---
Date/Time of Note Date/Time of Note DATE: 06/06/17 TIME: 18:33 Assessment/Plan Assessment/Plan Chief Complaint/Hosp Course 81-year-old morbidly obese male with a past medical history of hypertension, arthritis, appendectomy, insomnia, and chronic lower extremity swelling who was brought to the emergency room with fever, chills, malaise, body aches, nausea, 2 times nonbilious, nonbloody vomiting, and abdominal pain which started early this morning. Patient also had slightly productive cough started yesterday. He also had mild shortness of breath. Patient denied any chest pain, palpitation, loss of consciousness, dizziness, upper or lower GI bleed episodes , dysuria or hematuria. Patient had elevated WBC 13,000 with a lactic acid 3.4 on arrival. He also had a fever of 102 with blood pressure 157/92 and heart rate 99. Urine analysis was negative. Initial chest x-ray with severe cardiomegaly and mild pulmonary vascular congestion. There was no infiltrates or effusion. A CT abdomen and pelvis without any acute intra-abdominal pathologies. There was hepatic steatosis with questionable proteinaceous or hemorrhagic cyst on upper poles of bilateral kidneys and an ultrasound was recommended. Patient was given cefepime , vancomycin and a total of 2.9 later fluid bolus in the emergency room and was admitted for further evaluation. pt had Sepsis with GBS bacteremia and lactic acidosis,unknown etiology- Possible community acquired pneumonia- on IV abx, ID consulted, On MRI abdmen with pelvis with contrast - he is noted to have Approximately 1.2 cm exophytic cyst in the upper pole left kidney and 1 cm cyst in the upper pole right kidney with imaging features consistent with hemorrhagic/proteinaceous cyst- renal has been consulted for it Problems: Additional Assessment/Plan 1. Bilateral kidney mass vs cyst- MRI abdomen + pelvis showed 1.2 cm exophytic cyst in the upper pole left kidney and 1 cm cyst in the upper pole right kidney with imaging features consistent with hemorrhagic/proteinaceous cyst. - pt has normal renal function, no proteinuria, no hematuria 2. sepsis with Sreptococcus bacteremia,possibley pulmonary source, 2 D echo negative for vegetations 3. Hypertension 4. Fatty liver 5. Bilateral LE chronic lymphedema Plan : -MRI abdomen + pelvis showed 1.2 cm exophytic cyst in the upper pole left kidney and 1 cm cyst in the upper pole right kidney with imaging features consistent with hemorrhagic/proteinaceous cyst. - pt has normal renal function, no proteinuria, no hematuria- his infection source would be infected cysts. Cysts are not ruptured so no evidence of hematuria. - ID following, IV abx as per ID Renal functon has been stable, HCo3 34 - will give acetazolamide 250mg BID x 3 days then stop will need follow up Imaging( CT vs MRI ) fo tollow up on size of cyst in 1 year . will follow up Consultation Date/Type/Reason Admit Date/Time May 31, 2017 at 11:45 Initial Consult Date 06/02/17 Type of Consultation: NEPHROLOGY Referring Provider: CARMEN TOLEDO Exam/Review of Systems Vital Signs Vitals Vital Signs Date Time Temp Pulse Resp B/P Pulse Ox O2 Delivery O2 Flow Rate FiO2 06/06/17 17:15 97.8 88 20 134/58 95 06/06/17 16:36 21 06/06/17 04:42 Nasal Cannula 2.0 Intake and Output 06/05/17 06/05/17 06/06/17 15:00 23:00 07:00 Intake Total 1250 ml 550 ml Output Total 975 ml Balance 275 ml 550 ml Results Result Diagram: 06/05/17 0505 06/05/17 0505 Results 24 hrs Laboratory Tests Test 06/05/17 21:47 06/06/17 08:50 06/06/17 12:13 Bedside Glucose 146 136 312 H Medications Medications Current Medications Ondansetron HCl (Zofran Inj) 4 mg Q6H PRN IV NAUSEA AND/OR VOMITING; Start at 12:30 Acetaminophen (Tylenol Tab) 650 mg Q6H PRN PO PAIN LEVEL 1-3 OR FEVER Last administered on 06/04/17 04:35; Admin Dose 650 MG; Start 05/31/17 at 12:30 Acetaminophen (Tylenol Supp) 650 mg Q6H PRN DE PAIN LEVEL 1-3 OR FEVER; Start 05/31/17 at 12:30 Morphine Sulfate (morphine) 2 mg Q4H PRN IV SEVERE PAIN LEVEL 7-10 Last administered on 06/01/17 16:18; Admin Dose 2 MG; Start 05/31/17 at 12:30 Docusate Sodium (Colace) 100 mg Q12H PRN PO CONSTIPATION Last administered on 13:17; Admin Dose 100 MG; Start 05/31/17 at 12:30 Zolpidem Tartrate (Ambien) 10 mg QHS PRN PO INSOMNIA Last administered on 22:17; Admin Dose 10 MG; Start 05/31/17 at 12:30 Enoxaparin Sodium (Lovenox) 40 mg DAILY SC Last administered on 06/06/17 08:58 ; Admin Dose 40 MG; Start 06/01/17 at 09:00 Lorazepam (Ativan) 0.5 mg Q6H PRN IV anxiety; Start 05/31/17 at 16:30 Diagnostic Test (Pha) (Accu-Chek) 1 ea 02 XX ; Start 06/02/17 at 02:00 Miscellaneous Information 1 ea NOTE XX ; Start 06/01/17 at 09:00 Glucose (Glutose) 15 gm Q15M PRN PO DECREASED GLUCOSE; Start 06/01/17 at 09:00 Glucose (Glutose) 22.5 gm Q15M PRN PO DECREASED GLUCOSE; Start 06/01/17 at 09: 00 Dextrose (D50w Syringe) 25 ml Q15M PRN IV DECREASED GLUCOSE; Start 06/01/17 at 09:00 Dextrose (D50w Syringe) 50 ml Q15M PRN IV DECREASED GLUCOSE; Start 06/01/17 at 09:00 Glucagon (Glucagen) 1 mg Q15M PRN IM DECREASED GLUCOSE; Start 06/01/17 at 09:00 Glucose 15 gm 15 gm Q15M PRN BUCCAL DECREASED GLUCOSE; Start 06/01/17 at 09:00 Ceftriaxone Sodium (Rocephin) 50 ml @ 100 mls/hr Q24H IVPB Last administered on 06/06/17 17:08; Admin Dose 100 MLS/HR; Start 06/01/17 at 18:00; Stop at 17:59 Aspirin (Halfprin) 81 mg DAILY PO Last administered on 06/06/17 08:51; Admin Dose 81 MG; Start 06/03/17 at 09:00 Docusate Sodium (Colace) 100 mg DAILY PO Last administered on 06/06/17 08:52; Admin Dose 100 MG; Start 06/03/17 at 09:00 Dutasteride (Avodart) 0.5 mg DAILY PO Last administered on 06/06/17 08:51; Admin Dose 0.5 MG; Start 06/03/17 at 09:00 Calcium/Vitamin D (Oyster Shell/ Vit-D (500/200)) 1 tab DAILY PO Last administered on 06/06/17 08:51; Admin Dose 1 TAB; Start 06/03/17 at 09:00 Magnesium Oxide (Mag-Ox 400) 400 mg BID PO Last administered on 06/06/17 08:52 ; Admin Dose 400 MG; Start 06/02/17 at 21:00 Memantine (Namenda) 10 mg BID PO Last administered on 06/06/17 08:52; Admin Dose 10 MG; Start 06/02/17 at 21:00 Gabapentin (Neurontin) 300 mg TID PO Last administered on 06/06/17 12:13; Admin Dose 300 MG; Start 06/02/17 at 13:00 Metoprolol Succinate (Toprol Xl) 25 mg BID PO Last administered on 06/06/17 08 :55; Admin Dose 25 MG; Start 06/04/17 at 21:00 Salmeterol Xinafoate/ Fluticasone (Advair 250/50 Diskus) 1 inh BID INH Last administered on 06/06/17 08:52; Admin Dose 1 INH; Start 06/04/17 at 21:00 Atorvastatin Calcium (Lipitor) 40 mg HS PO Last administered on 06/05/17 21:42 ; Admin Dose 40 MG; Start 06/05/17 at 21:00 Doxazosin Mesylate (Cardura) 4 mg HS PO Last administered on 06/05/17 21:42; Admin Dose 4 MG; Start 06/05/17 at 21:00 Famotidine (Pepcid) 20 mg QHS PO Last administered on 06/05/17 21:41; Admin Dose 20 MG; Start 06/05/17 at 21:00 IV Flush (NS 10 ml) 10 ml PRN PRN IV IV PROTOCOL; Start 06/06/17 at 14:00 JAIMIE QUINTERO MD Jun 06, 2017 18:35
[2017-06-06] MEDS ORDERED: ACETAZOLAMIDE 250 MG TAB PO SCH (21:00)
== END 2017-06-06 18:55 | disposition home health service (06) | DRG 872 ==
LOC: E/R 08:02 → MS4 11:45 → PP2 06-03 16:09
PROVIDERS: ADMIT Hospitalist; ATTEND Hospitalist
PROC: 05H633Z Insertion of Infusion Device into Left Subclavian Vein, Percutaneous Approach (ICD-10-PCS; principal; 2017-05-31)
DX: A40.1 Sepsis due to streptococcus, group B (principal); I11.0 Hypertensive heart disease with heart failure; I50.32 Chronic diastolic (congestive) heart failure; K76.0 Fatty (change of) liver, not elsewhere classified; Z68.41 Body mass index [BMI] 40.0-44.9, adult; J06.9 Acute upper respiratory infection, unspecified; E66.01 Morbid (severe) obesity due to excess calories; E78.00 Pure hypercholesterolemia, unspecified; G47.00 Insomnia, unspecified; I89.0 Lymphedema, not elsewhere classified; N28.1 Cyst of kidney, acquired; E05.90 Thyrotoxicosis, unspecified without thyrotoxic crisis or storm; R73.03 Prediabetes
CPT/HCPCS: 36415; 36569; 71010; 74176; 74183; 76775; 76937; 80048; 80053; 80061; 81001; 81003; 82962; 83036; 83605; 83735; 83880; 84100; 84439; 84443; 84480; 84481; 84484; 85025; 85610; 85730; 87040; 87086; 93005; 93306; 93970; 94640; 94644; 94664; 96374; 96375; 97161; J1940; J0692; J0696; J1650; J1815; J2270; J2405; J2543; J2930; J3370; J3475; J7030

== ENCOUNTER 2018-04-26 12:58 | Inpatient (IN) | END 2018-04-27 18:40 | disposition home or self-care (01) | DRG 87 ==